=== PATIENT | female | born 1975 | race Caucasian/White ===

== ENCOUNTER → 2018-10-17 | Outpatient (CLI) | payer OTHER, SELFPAY ==
[2018-10-17 10:57] LABS: Mucous, Urine 0 SEEN /hpf (<or=2+); Red Blood Cells-Urine 0 SEEN /hpf (0-5)
[2018-10-17 12:14] LABS: Color, Urine Yellow (Yellow); Glucose, Dipstick Normal (Normal); Ketone-Dipstick Negative (Negative); Leukocyte Esterase-Dipstick 100 /ul (Negative); Nitrite-Dipstick Negative (Negative); Occult Blood-Urine 50 /ul (Negative); Protein-Dipstick Negative (Negative); Urine Bilirubin Dipstick Negative (Negative); Urine Clarity Clear (Clear); Urine Urobilinogen Normal (Normal); Urine pH 6.5 (5.0 - 8.0)
[2018-10-17 12:30] LABS: Bacteria 1+ /hpf (None Seen); Squamous Epithelial Cells - UA 0-5 SEEN /hpf (5-10); White Blood Cells 5-10 SEEN /hpf (0-5)
[2018-10-17 12:34] LABS: Absolute Lymphocyte Count 1.82 X10^3/ul (0.83-4.51); Absolute Neutrophil Count 5.9 X10^3/uL (2.0-7.7); Basophil# 0.05 X10^3/uL; Basophil% 0.6 % (0-1); Eosinophil# 0.22 X10^3/uL; Eosinophils% 2.6 % (0-5); Hematocrit 39.8 % (37-47); Hemoglobin 12.2 g/dl (12.0-15.0); Lymphocyte # 1.82 X10^3/ul (4.0); Lymphocyte % 21.1 % (19-41); Mean Corp Hgb Conc 30.7 g/gl (32-36); Mean Corpuscular Hgb 24.5 pg (27.0-32.0); Mean Corpuscular Volume 79.9 fL (81-99); Mean Platelet Vol. 9.8 fl (6.2-12.0); Monocyte# 0.61 X10^3/uL; Monocyte% 7.1 % (0-10); Neutrophil % 68.5 % (47-70); Platelet Count 333 K/mm3 (150-450); RBC Distribution Width CV 16.7 % (11.6-14.6); Red Blood Count 4.98 M/mm3 (4.2-5.4); White Blood Count 8.6 K/mm3 (4.4-11.0)
[2018-10-17 12:47] LABS: POSITIVE COUNT NO; POSITIVE DIFFERENTIAL NO; POSITIVE MORPHOLOGY NO; Vitamin D,25 Hydroxy 18.6 ng/mL (29.95-100.01)
[2018-10-17 12:51] LABS: AST(SGOT) 14 U/L (15-37); Alanine Aminotransfer ALT/SGPT 24 U/L (13-56); Albumin, Serum 3.4 g/dL (3.2-5.0); Alkaline Phosphatase 63 U/L (45-117); Anion Gap 10 (5-15); BUN 13 mg/dL (7-18); BUN/Creat Ratio 13.8 RATIO (10-20); Calcium,Total 8.7 mg/dL (8.5-10.1); Chloride 112 mmol/L (98-107); Creatinine, Serum 0.94 mg/dL (0.55-1.02); EST Glomerular Filtration Rate 69 mL/min (>60); Est Glom Filt Rate - Afr Amer 84 mL/min (>60); Ferritin 7 ng/mL (8-252); Globulin 3.4 g/dL (2.2-4.2); Glucose 91 mg/dL (74-106); Iron 58 ug/dL (50-170); Iron Binding Capacity,Total 425 ug/dL (250-450); Potassium 4.1 mmol/L (3.5-5.1); Protein, Total 6.8 g/dL (6.4-8.2); Sodium Level 145 mmol/L (136-145); Thyroid Stim Hormone (TSH) 0.95 uIU/mL (0.358-3.74)
[2018-10-18 16:28] LABS: ANTINUCLEAR ANTIBODIES DIRECT Negative (Negative)
== END | disposition home or self-care (01) ==
LOC: MFPLAB 10:50
PROVIDERS: Visit Provider Family Medicine
DX: E55.9 Vitamin D deficiency, unspecified (principal); F31.9 Bipolar disorder, unspecified; Z86.2 Personal history of diseases of the blood and blood-forming organs and certain disorders involving the immune mechanism
CPT/HCPCS: 36415; 80053; 80178; 81001; 82306; 82728; 83540; 83550; 84443; 85025; 86038

== ENCOUNTER → 2018-11-29 | Outpatient (CLI) | payer OTHER, SELFPAY ==
--- NOTE | 2018-11-29 06:47 | MRI_ITS ---
STUDY: MRI BRAIN WITH AND WITHOUT CONTRAST (ATTENTION PITUITARY GLAND) REASON FOR EXAM: Female, 43 years old. Pituitary stalk lesion. TECHNIQUE: Standardized multiplanar fat and water weighted pulse sequences were obtained. 22 IV Dotarem was administered for the contrast portion of the examination. COMPARISON: 06/01/2016. FINDINGS: The pituitary gland is normal in size, configuration, signal intensity and degree of contrast enhancement. The pituitary stalk near the hypothalamus is slightly prominent but this is unchanged and stable since 06/01/2016. Normal suprasellar cistern. Normal optic chiasm and hypothalamus. Normal size of the ventricles and extra-axial spaces for the patient's age. Normal white matter tracts of the supratentorial brain. Normal bilateral basal ganglia. Normal thalami. Normal flow voids within the major intracranial circulation suggesting patency by spin echo criteria. Normal venous enhancement. There is no enhancing intra-axial or extra-axial abnormality. There is no extra-axial fluid accumulation. Normal tectal plate and pineal gland. Normal midbrain, vanita and medulla. Normal cerebellum. Normal basal cisterns. Normal bilateral temporal bones. Normal bilateral internal auditory canals. No demonstrated orbital abnormality, within the constraints of a routine brain study. Normal visualized paranasal sinuses. Normal calvarium and skull base. Normal visualized upper cervical spine. Normal visualized soft tissue structures. MRI/Brain W/WO Contrast IMPRESSION: 1. Slightly prominent pituitary stalk near the hypothalamus without obvious mass effect. This measures approximately 3.7 x 3.4 x 2 mm. This remains stable and unchanged since 06/01/2016. There is no displacement of the pituitary stalk and the pituitary gland remains normal. 2. No interval changes when compared to 06/01/2016. Electronically Signed: Reddy Caal MD at 14:28 EDT , Service support ,
== END | disposition home or self-care (01) ==
PROVIDERS: Family Provider Family Medicine; PCP Family Medicine; Referring Provider Family Medicine; Visit Provider Family Medicine
DX: D49.6 Neoplasm of unspecified behavior of brain (principal)
CPT/HCPCS: 70553; A9575

== ENCOUNTER → 2019-01-19 | Outpatient (CLI) | payer OTHER, SELFPAY ==
[2019-01-19 10:02] LABS: Absolute Lymphocyte Count 1.82 X10^3/uL (0.83-4.51); Absolute Neutrophil Count 6.2 X10^3/uL (2.0-7.7); Basophil# 0.06 X10^3/uL; Basophil% 0.7 % (0-1); Eosinophil# 0.18 X10^3/uL; Eosinophils% 2.1 % (0-5); Hematocrit 42.9 % (37-47); Hemoglobin 13.2 g/dL (12.0-15.0); Lymphocyte # 1.82 X10^3/ul (4.0); Lymphocyte % 20.8 % (19-41); Mean Corp Hgb Conc 30.8 g/dL (32-36); Mean Corpuscular Hgb 27.4 pg (27.0-32.0); Mean Platelet Vol. 9.3 fl (6.2-12.0); Monocyte# 0.48 X10^3/uL; Monocyte% 5.5 % (0-10); NRBC Flagged by Analyzer 0 % (0-5); Neutrophil # 6.17 X10^3/uL (2.7-7.7); Neutrophil % 70.4 % (47-70); Platelet Count 313 K/mm3 (150-450); RBC Distribution Width CV 13.2 % (11.6-14.6); RBC Distribution Width SD 43.4 fl (35.1-43.9); Red Blood Count 4.82 M/mm3 (4.2-5.4); White Blood Count 8.8 K/mm3 (4.4-11.0)
[2019-01-19 10:32] LABS: Vitamin D,25 Hydroxy 29.9 ng/mL (29.95-100.01)
[2019-01-19 10:33] LABS: AST(SGOT) 23 U/L (15-37); Alanine Aminotransfer ALT/SGPT 32 U/L (13-56); Albumin, Serum 3.5 g/dL (3.2-5.0); Alkaline Phosphatase 70 U/L (45-117); Anion Gap 9 (5-15); BUN 13 mg/dL (7-18); Calcium,Total 8.8 mg/dL (8.5-10.1); Chloride 111 mmol/L (98-107); EST Glomerular Filtration Rate 64 mL/min (>60); Est Glom Filt Rate - Afr Amer 78 mL/min (>60); Ferritin 18 ng/mL (8-252); Globulin 3.5 g/dL (2.2-4.2); Glucose 90 mg/dL (74-106); Iron 30 ug/dL (50-170); Iron Binding Capacity,Total 361 ug/dL (250-450); Potassium 4.2 mmol/L (3.5-5.1); Sodium Level 143 mmol/L (136-145)
== END | disposition home or self-care (01) ==
LOC: MFPLAB 09:21
PROVIDERS: Family Provider Family Medicine; PCP Family Medicine; Referring Provider Family Medicine; Visit Provider Family Medicine
DX: R79.0 Abnormal level of blood mineral (principal); E55.9 Vitamin D deficiency, unspecified; M32.9 Systemic lupus erythematosus, unspecified
CPT/HCPCS: 36415; 80053; 82306; 82728; 83540; 83550; 85025

== ENCOUNTER 2019-04-03 09:46 | Emergency (ER) | payer OTHER, SELFPAY ==
[2019-04-03 09:48] VITALS: BP 161/96; PULSE 84; RESP 16; TEMP 36.6; O2SAT 100; BMI 37.5
--- NOTE | 2019-04-03 10:06 | ED.VIS.GEN ---
History of Present Illness Chief Complaint: Vag Bleeding Informant: Patient Onset: Yesterday Context: Gradual Onset Current Severity: Severe Maximum Severity: Severe Narrative: Patient presents with heavy vaginal bleeding. She is had a problem with this and is actually scheduled to undergo a uterine biopsy later this week. 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 Patient states she started her. 2 nights ago. Yesterday she went through 22 overnight pads and had some lower abdominal cramping and low back cramping. - Past Medical History (1) Lupus Status: Chronic (2) Activated protein C resistance Status: Chronic Past Medical History - Allergies and Home Meds Allergies/Adverse Reactions: Allergies Iodinated Contrast Media [CONTRASTS] Allergy (Verified 04/03/19 09:47) Rash Primary Care Physician: Ben Ivan MD [Primary Care Provider] - Doctors: Dr. Lupe Louis Prior records reviewed: Yes Review of Systems General: Denies: Chills, Fever Eyes: Denies: Visual changes - bilaterally ENT: Denies: Bilateral ear pain Cardiovascular: Denies: Chest pain Respiratory: Denies: Dyspnea Gastrointestinal: Reports: Abdominal pain. Denies: Nausea, Vomiting, Diarrhea Musculoskeletal: Reports: Back pain Skin: Denies: Rash Neurological: Denies: Headache Allergy: Denies: Uticaria Physical Exam Vital Signs/Narrative: Vital Signs Temp Pulse Resp BP Pulse Ox 04/03/19 09:48 97.9 F 84 16 161/96 H 100 Inital Vital Signs reviewed: Yes General: Well nourished, Well developed Head: Normocephalic ENT: Moist mucous membranes Neck: Supple Cardiovascular: Regular rate, Regular rhythm Respiratory: No distress, CTA bilaterally Abdomen: Soft, Tender - Mild superpubic tenderness., Hypoactive bowel sounds. Negative for: Guarding, Rebound tenderness Back: Negative for: CVA tenderness Skin: Normal color Neurological: Alert, Oriented x3 Psychological: Normal affect Diagnostic/Tx/Re-eval Laboratory Results 04/03/19 04/03/19 04/03/19 10:15 10:15 10:15 WBC 8.8 RBC 4.74 Hgb 13.3 Hct 43.2 MCV 91.1 MCH 28.1 MCHC 30.8 L RDW Std Deviation 47.6 H RDW Coeff of Codie 14.2 Plt Count 294 MPV 9.0 Immature Gran % (Auto) 0.300 Neut % (Auto) 68.2 Lymph % (Auto) 23.2 [place] % (Auto) 5.7 Eos % (Auto) 1.9 Baso % (Auto) 0.7 Absolute Neuts (auto) 6.0 Absolute Lymphs (auto) 2.04 Nucleated RBC % 0 PT 12.3 INR 0.9 APTT 24.4 Sodium 143 Potassium 3.9 Chloride 112 H Carbon Dioxide 27.0 Anion Gap 4 L BUN 7 Creatinine 0.78 Estim Creat Clear Calc 91.37 Est GFR (MDRD) Af Amer 104 Est GFR (MDRD) Non-Af 86 BUN/Creatinine Ratio 9.0 L Glucose 98 Calcium 8.5 HCG, Quant 04/03/19 10:15 WBC RBC Hgb Hct MCV MCH MCHC RDW Std Deviation RDW Coeff of Codie Plt Count MPV Immature Gran % (Auto) Neut % (Auto) Lymph % (Auto) [place] % (Auto) Eos % (Auto) Baso % (Auto) Absolute Neuts (auto) Absolute Lymphs (auto) Nucleated RBC % PT INR APTT Sodium Potassium Chloride Carbon Dioxide Anion Gap BUN Creatinine Estim Creat Clear Calc Est GFR (MDRD) Af Amer Est GFR (MDRD) Non-Af BUN/Creatinine Ratio Glucose Calcium HCG, Quant < 1 - Medical Decision Making She was given IV fluids. Vital signs remained stable here. I spoke with Dr. Santiago, on-call for Dr. Lupe Louis. He would like the patient to be seen in the office tomorrow. Dr. Lupe Louis is not available today. Patient is to call the office this afternoon to be seen tomorrow. ED Disposition - Plan for ED Patient: Disposition: Home or Assisted Living Diagnosis: Menorrhagia Instructions: Menorrhagia Referrals: Christa Marcos MD [STAFF PHYSICIAN] - 1 Day
[2019-04-03] MEDS: 0.9% Normal Saline 1,000 ML 1000 ML IV (10:22)
[2019-04-03 10:23] VITALS: BP 130/90
[2019-04-03 10:31] LABS: Absolute Lymphocyte Count 2.04 X10^3/uL (0.83-4.51); Basophil# 0.06 X10^3/uL; Basophil% 0.7 % (0-1); Eosinophil# 0.17 X10^3/uL; Eosinophils% 1.9 % (0-5); Hematocrit 43.2 % (37-47); Hemoglobin 13.3 g/dL (12.0-15.0); Lymphocyte # 2.04 X10^3/ul (4.0); Lymphocyte % 23.2 % (19-41); Mean Corp Hgb Conc 30.8 g/dL (32-36); Mean Corpuscular Hgb 28.1 pg (27.0-32.0); Mean Corpuscular Volume 91.1 fL (81-99); Monocyte% 5.7 % (0-10); NRBC Flagged by Analyzer 0 % (0-5); Neutrophil # 5.99 X10^3/uL (2.7-7.7); Neutrophil % 68.2 % (47-70); Platelet Count 294 K/mm3 (150-450); RBC Distribution Width CV 14.2 % (11.6-14.6); RBC Distribution Width SD 47.6 fl (35.1-43.9); Red Blood Count 4.74 M/mm3 (4.2-5.4); White Blood Count 8.8 K/mm3 (4.4-11.0)
[2019-04-03 10:36] LABS: International Normalized Ratio 0.9; Prothrombin Time (Protime)PT. 12.3 SECONDS (11.7-14.9)
[2019-04-03 10:37] LABS: Partial Thromboplast Time 24.4 Seconds (24.1-36.2)
[2019-04-03 10:49] LABS: Anion Gap 4 (5-15); BUN 7 mg/dL (7-18); Calcium,Total 8.5 mg/dL (8.5-10.1); Chloride 112 mmol/L (98-107); Creatinine, Serum 0.78 mg/dL (0.55-1.02); EST Glomerular Filtration Rate 86 mL/min (>60); Est Glom Filt Rate - Afr Amer 104 mL/min (>60); Estimated Creatinine Clearance 91.37 ml/min; Glucose 98 mg/dL (74-106); Potassium 3.9 mmol/L (3.5-5.1); Sodium Level 143 mmol/L (136-145)
[2019-04-03 10:53] LABS: hCG Titer Quant., Serum < 1 mIU/mL (1-3)
[2019-04-03 12:23] VITALS: BP 124/81; PULSE 78; RESP 16; O2SAT 97
== END 2019-04-03 12:23 | disposition home or self-care (01) ==
PROVIDERS: Emergency Provider Emergency Medicine; Family Provider Family Medicine; PCP Family Medicine
DX: N92.0 Excessive and frequent menstruation with regular cycle (principal); D68.51 Activated protein C resistance
CPT/HCPCS: 80048; 84702; 85025; 85610; 85730; 96360; 99283; J7030

== ENCOUNTER → 2019-04-28 08:58 | Outpatient (CLI) | payer OTHER, SELFPAY ==
[2019-04-03 09:48] VITALS: BMI 37.5
[2019-04-28 10:17] LABS: Absolute Lymphocyte Count 1.81 X10^3/uL (0.83-4.51); Absolute Neutrophil Count 6.9 X10^3/uL (2.0-7.7); Basophil# 0.07 X10^3/uL; Basophil% 0.7 % (0-1); Eosinophil# 0.16 X10^3/uL; Eosinophils% 1.7 % (0-5); Hematocrit 44.2 % (37-47); Hemoglobin 13.6 g/dL (12.0-15.0); Lymphocyte # 1.81 X10^3/ul (4.0); Lymphocyte % 19.2 % (19-41); Mean Corp Hgb Conc 30.8 g/dL (32-36); Mean Corpuscular Hgb 27.7 pg (27.0-32.0); Mean Platelet Vol. 9.8 fl (6.2-12.0); Monocyte# 0.48 X10^3/uL; Monocyte% 5.1 % (0-10); NRBC Flagged by Analyzer 0 % (0-5); Neutrophil # 6.88 X10^3/uL (2.7-7.7); Platelet Count 335 K/mm3 (150-450); RBC Distribution Width CV 13.8 % (11.6-14.6); RBC Distribution Width SD 45.6 fl (35.1-43.9); Red Blood Count 4.91 M/mm3 (4.2-5.4); White Blood Count 9.4 K/mm3 (4.4-11.0)
[2019-04-28 10:48] LABS: Vitamin D,25 Hydroxy 26.4 ng/mL (29.95-100.01)
[2019-04-28 10:54] LABS: Anion Gap 4 (5-15); BUN 10 mg/dL (7-18); BUN/Creat Ratio 11.4 RATIO (10-20); Calcium,Total 8.5 mg/dL (8.5-10.1); Chloride 113 mmol/L (98-107); Creatinine, Serum 0.88 mg/dL (0.55-1.02); EST Glomerular Filtration Rate 75 mL/min (>60); Est Glom Filt Rate - Afr Amer 91 mL/min (>60); Ferritin 15 ng/mL (8-252); Glucose 98 mg/dL (74-106); Iron 33 ug/dL (50-170); Iron Binding Capacity,Total 428 ug/dL (250-450); Potassium 4.5 mmol/L (3.5-5.1); Sodium Level 142 mmol/L (136-145)
== END ==
PROVIDERS: Family Provider Family Medicine; PCP Family Medicine; Referring Provider Family Medicine; Visit Provider Family Medicine
DX: E55.9 Vitamin D deficiency, unspecified (principal); R79.0 Abnormal level of blood mineral; F31.9 Bipolar disorder, unspecified
CPT/HCPCS: 36415; 80048; 82306; 82728; 83540; 83550; 85025

== ENCOUNTER → 2019-09-11 | Outpatient (CLI) | payer OTHER, SELFPAY ==
[2019-09-11 10:04] LABS: Erythrocyte Sedimentation Rate 10 mm/hr (0-20)
[2019-09-11 10:23] LABS: Absolute Lymphocyte Count 1.58 X10^3/uL (0.83-4.51); Absolute Neutrophil Count 6.3 X10^3/uL (2.0-7.7); Basophil# 0.05 X10^3/uL; Basophil% 0.6 % (0-1); Eosinophil# 0.18 X10^3/uL; Eosinophils% 2.1 % (0-5); Hematocrit 43.4 % (37-47); Hemoglobin 13.5 g/dL (12.0-15.0); Lymphocyte # 1.58 X10^3/ul (4.0); Lymphocyte % 18.3 % (19-41); Mean Corp Hgb Conc 31.1 g/dL (32-36); Mean Corpuscular Hgb 27.4 pg (27.0-32.0); Mean Corpuscular Volume 88.2 fL (81-99); Mean Platelet Vol. 9.6 fl (6.2-12.0); Monocyte# 0.48 X10^3/uL; Monocyte% 5.5 % (0-10); NRBC Flagged by Analyzer 0 % (0-5); Neutrophil # 6.33 X10^3/uL (2.7-7.7); Neutrophil % 73.2 % (47-70); Platelet Count 364 K/mm3 (150-450); RBC Distribution Width CV 13.7 % (11.6-14.6); RBC Distribution Width SD 43.9 fl (35.1-43.9); Red Blood Count 4.92 M/mm3 (4.2-5.4); White Blood Count 8.7 K/mm3 (4.4-11.0)
[2019-09-11 10:24] LABS: AST(SGOT) 12 U/L (15-37); Alanine Aminotransfer ALT/SGPT 22 U/L (13-56); Albumin, Serum 3.4 g/dL (3.2-5.0); Alkaline Phosphatase 68 U/L (45-117); Anion Gap 5 (5-15); BUN 10 mg/dL (7-18); BUN/Creat Ratio 11.5 RATIO (10-20); CRP 5.64 mg/L (0.0-3.0); Calcium,Total 8.5 mg/dL (8.5-10.1); Chloride 111 mmol/L (98-107); Creatinine, Serum 0.87 mg/dL (0.55-1.02); EST Glomerular Filtration Rate 76 mL/min (>60); Est Glom Filt Rate - Afr Amer 92 mL/min (>60); Globulin 3.3 g/dL (2.2-4.2); Glucose 129 mg/dL (74-106); Potassium 3.8 mmol/L (3.5-5.1); Protein, Total 6.7 g/dL (6.4-8.2); Rheumatoid Factor < 10.0 IU/mL (<15); Sodium Level 139 mmol/L (136-145)
[2019-09-11 11:01] LABS: Hepatitis B Surface Antibody Non-Reactive; Hepatitis B Surface Antigen Non-Reactive (Nonreactive); Hepatitis C Antibody Non-Reactive (Nonreactive)
[2019-09-12 23:52] LABS: ANTINUCLEAR ANTIBODIES DIRECT Negative (Negative)
[2019-09-13 03:58] LABS: CCP IgG Antibodies 7 units (0-19); Hepatitis B Core AB IgM Negative (Negative)
== END | disposition home or self-care (01) ==
LOC: MTLAB 07:21
PROVIDERS: PCP Family Medicine; Referring Provider Internal Medicine Rheumatology; Visit Provider Internal Medicine Rheumatology
DX: M06.4 Inflammatory polyarthropathy (principal); M79.7 Fibromyalgia; F31.9 Bipolar disorder, unspecified; R51 Headache; Z85.820 Personal history of malignant melanoma of skin; Z86.711 Personal history of pulmonary embolism
CPT/HCPCS: 36415; 80053; 85025; 85652; 86038; 86140; 86200; 86431; 86705; 86706; 86803; 87340

== ENCOUNTER → 2019-10-02 | Outpatient (CLI) | payer OTHER, SELFPAY ==
[2019-10-02 10:17] LABS: Vitamin D,25 Hydroxy 38.2 ng/mL
[2019-10-02 10:24] LABS: Ferritin 46 ng/mL (8-252); Iron 127 ug/dL (50-170); Iron Binding Capacity,Total 331 ug/dL (250-450)
== END | disposition home or self-care (01) ==
PROVIDERS: PCP Family Medicine; Referring Provider Family Medicine; Visit Provider Family Medicine
DX: E55.9 Vitamin D deficiency, unspecified (principal); R79.0 Abnormal level of blood mineral; F31.9 Bipolar disorder, unspecified
CPT/HCPCS: 36415; 80178; 82306; 82728; 83540; 83550

== ENCOUNTER → 2019-11-07 | Outpatient (CLI) | payer OTHER, SELFPAY ==
[2019-11-07 15:26] LABS: Absolute Lymphocyte Count 1.59 X10^3/uL (0.83-4.51); Absolute Neutrophil Count 6.2 X10^3/uL (2.0-7.7); Basophil# 0.05 X10^3/uL; Basophil% 0.6 % (0-1); Eosinophils% 2.3 % (0-5); Hematocrit 42.4 % (37-47); Hemoglobin 12.8 g/dL (12.0-15.0); Lymphocyte # 1.59 X10^3/ul (4.0); Lymphocyte % 18.6 % (19-41); Mean Corp Hgb Conc 30.2 g/dL (32-36); Mean Corpuscular Volume 95.9 fL (81-99); Mean Platelet Vol. 9.7 fl (6.2-12.0); Monocyte# 0.44 X10^3/uL; Monocyte% 5.2 % (0-10); NRBC Flagged by Analyzer 0 % (0-5); Neutrophil # 6.22 X10^3/uL (2.7-7.7); Neutrophil % 72.9 % (47-70); Platelet Count 331 K/mm3 (150-450); RBC Distribution Width CV 14.7 % (11.6-14.6); RBC Distribution Width SD 50.9 fl (35.1-43.9); Red Blood Count 4.42 M/mm3 (4.2-5.4); White Blood Count 8.5 K/mm3 (4.4-11.0)
[2019-11-07 16:04] LABS: AST(SGOT) 13 U/L (15-37); Alanine Aminotransfer ALT/SGPT 27 U/L (13-56); Albumin, Serum 3.3 g/dL (3.2-5.0); Alkaline Phosphatase 70 U/L (45-117); Anion Gap 6 (5-15); BUN 11 mg/dL (7-18); Calcium,Total 8.7 mg/dL (8.5-10.1); Chloride 109 mmol/L (98-107); Creatinine, Serum 0.92 mg/dL (0.55-1.02); EST Glomerular Filtration Rate 71 mL/min (>60); Est Glom Filt Rate - Afr Amer 86 mL/min (>60); Globulin 3.4 g/dL (2.2-4.2); Glucose 96 mg/dL (74-106); Potassium 3.8 mmol/L (3.5-5.1); Protein, Total 6.7 g/dL (6.4-8.2); Sodium Level 140 mmol/L (136-145)
== END | disposition home or self-care (01) ==
LOC: MFPLAB 12:05
PROVIDERS: PCP Family Medicine; Referring Provider Family Medicine; Visit Provider Internal Medicine Rheumatology
DX: M06.4 Inflammatory polyarthropathy (principal); M79.7 Fibromyalgia; F31.9 Bipolar disorder, unspecified; R51 Headache; Z85.820 Personal history of malignant melanoma of skin; Z86.711 Personal history of pulmonary embolism; Z79.899 Other long term (current) drug therapy
CPT/HCPCS: 36415; 80053; 85025

== ENCOUNTER → 2020-03-25 11:49 | Outpatient (CLI) | payer OTHER, SELFPAY ==
[2020-03-25 15:16] LABS: Absolute Lymphocyte Count 1.41 X10^3/uL (0.83-4.51); Absolute Neutrophil Count 7.6 X10^3/uL (2.0-7.7); Basophil# 0.05 X10^3/uL; Basophil% 0.5 % (0-1); Eosinophil# 0.18 X10^3/uL; Eosinophils% 1.8 % (0-5); Hematocrit 43.6 % (37-47); Hemoglobin 13.1 g/dL (12.0-15.0); Lymphocyte # 1.41 X10^3/ul (4.0); Lymphocyte % 14.4 % (19-41); Mean Corpuscular Hgb 27.9 pg (27.0-32.0); Mean Platelet Vol. 9.6 fl (6.2-12.0); Monocyte# 0.48 X10^3/uL; Monocyte% 4.9 % (0-10); NRBC Flagged by Analyzer 0 % (0-5); Neutrophil # 7.64 X10^3/uL (2.7-7.7); Neutrophil % 77.9 % (47-70); Platelet Count 349 K/mm3 (150-450); RBC Distribution Width CV 14.4 % (11.6-14.6); RBC Distribution Width SD 48.6 fl (35.1-43.9); Red Blood Count 4.69 M/mm3 (4.2-5.4); White Blood Count 9.8 K/mm3 (4.4-11.0)
[2020-03-25 15:31] LABS: AST(SGOT) 14 U/L (15-37); Alanine Aminotransfer ALT/SGPT 31 U/L (13-56); Albumin, Serum 3.5 g/dL (3.2-5.0); Alkaline Phosphatase 77 U/L (45-117); Anion Gap 5 (5-15); BUN 11 mg/dL (7-18); Calcium,Total 9.2 mg/dL (8.5-10.1); Chloride 112 mmol/L (98-107); Creatinine, Serum 0.91 mg/dL (0.55-1.02); EST Glomerular Filtration Rate 71 mL/min (>60); Est Glom Filt Rate - Afr Amer 86 mL/min (>60); Globulin 3.6 g/dL (2.2-4.2); Glucose 100 mg/dL (74-106); Potassium 4.5 mmol/L (3.5-5.1); Protein, Total 7.1 g/dL (6.4-8.2); Sodium Level 141 mmol/L (136-145)
== END ==
PROVIDERS: PCP Family Medicine; Referring Provider Family Medicine; Visit Provider Internal Medicine Rheumatology
DX: M06.4 Inflammatory polyarthropathy (principal); M79.7 Fibromyalgia; F31.9 Bipolar disorder, unspecified; R51.9 Headache, unspecified; Z85.820 Personal history of malignant melanoma of skin; Z86.711 Personal history of pulmonary embolism; Z79.899 Other long term (current) drug therapy
CPT/HCPCS: 36415; 80053; 85025

== ENCOUNTER → 2020-06-12 14:42 | Outpatient (CLI) | payer OTHER, SELFPAY ==
[2020-06-12 18:22] LABS: Absolute Lymphocyte Count 2.74 X10^3/uL (0.83-4.51); Absolute Neutrophil Count 5.9 X10^3/uL (2.0-7.7); Basophil# 0.06 X10^3/uL; Basophil% 0.6 % (0-1); Eosinophil# 0.23 X10^3/uL; Eosinophils% 2.4 % (0-5); Hematocrit 42.5 % (37-47); Hemoglobin 12.7 g/dL (12.0-15.0); Lymphocyte # 2.74 X10^3/ul (4.0); Lymphocyte % 28.7 % (19-41); Mean Corp Hgb Conc 29.9 g/dL (32-36); Mean Corpuscular Hgb 27.6 pg (27.0-32.0); Mean Corpuscular Volume 92.4 fL (81-99); Mean Platelet Vol. 10.3 fl (6.2-12.0); Monocyte% 6.3 % (0-10); NRBC Flagged by Analyzer 0 % (0-5); Neutrophil # 5.88 X10^3/uL (2.7-7.7); Neutrophil % 61.7 % (47-70); Platelet Count 369 K/mm3 (150-450); RBC Distribution Width CV 14.6 % (11.6-14.6); RBC Distribution Width SD 49.2 fl (35.1-43.9); White Blood Count 9.5 K/mm3 (4.4-11.0)
[2020-06-12 18:52] LABS: ALB/GLOB Ratio 1.1 RATIO (0.9-2.4); AST(SGOT) 15 U/L (15-37); Alanine Aminotransfer ALT/SGPT 32 U/L (13-56); Albumin, Serum 3.5 g/dL (3.2-5.0); Alkaline Phosphatase 70 U/L (45-117); Anion Gap 6 (5-15); BUN 11 mg/dL (7-18); BUN/Creat Ratio 12.4 RATIO (10-20); Calcium,Total 9.1 mg/dL (8.5-10.1); Chloride 110 mmol/L (98-107); Creatinine, Serum 0.89 mg/dL (0.55-1.02); EST Glomerular Filtration Rate 73 mL/min (>60); Est Glom Filt Rate - Afr Amer 89 mL/min (>60); Globulin 3.3 g/dL (2.2-4.2); Glucose 93 mg/dL (74-106); Potassium 4.2 mmol/L (3.5-5.1); Protein, Total 6.8 g/dL (6.4-8.2); Sodium Level 141 mmol/L (136-145)
== END ==
PROVIDERS: PCP Family Medicine; Referring Provider Family Medicine; Visit Provider Internal Medicine Rheumatology
DX: M06.4 Inflammatory polyarthropathy (principal); M79.7 Fibromyalgia; F31.9 Bipolar disorder, unspecified; R51.9 Headache, unspecified; Z85.820 Personal history of malignant melanoma of skin; Z86.711 Personal history of pulmonary embolism; Z79.899 Other long term (current) drug therapy
CPT/HCPCS: 36415; 80053; 85025

== ENCOUNTER → 2020-06-13 | Outpatient (CLI) | payer OTHER, SELFPAY ==
[2020-06-13 18:05] LABS: Vitamin B12 391 pg/mL (211-911); Vitamin D,25 Hydroxy 17.7 ng/mL
[2020-06-13 18:16] LABS: Ferritin 33 ng/mL (8-252); Iron 22 ug/dL (50-170); Iron Binding Capacity,Total 363 ug/dL (250-450); T4 Free Direct 1.03 ng/dL (0.76-1.46); Thyroid Stim Hormone (TSH) 1.26 uIU/mL (0.358-3.74)
== END | disposition home or self-care (01) ==
LOC: MFPLAB 16:35
PROVIDERS: PCP Family Medicine; Referring Provider Family Medicine; Visit Provider Family Medicine
DX: E55.9 Vitamin D deficiency, unspecified (principal); R79.0 Abnormal level of blood mineral; R53.83 Other fatigue
CPT/HCPCS: 36415; 82306; 82607; 82728; 83540; 83550; 84439; 84443

== ENCOUNTER → 2020-08-28 16:23 | Outpatient (CLI) | payer OTHER, SELFPAY ==
[2020-08-28 17:59] LABS: Absolute Lymphocyte Count 2.44 X10^3/uL (0.83-4.51); Absolute Neutrophil Count 6.4 X10^3/uL (2.0-7.7); Basophil# 0.06 X10^3/uL; Basophil% 0.6 % (0-1); Eosinophils% 2.1 % (0-5); Hematocrit 40.8 % (37-47); Hemoglobin 12.3 g/dL (12.0-15.0); Lymphocyte # 2.44 X10^3/ul (0.83-4.51); Lymphocyte % 25.2 % (19-41); Mean Corp Hgb Conc 30.1 g/dL (32-36); Mean Corpuscular Hgb 27.6 pg (27.0-32.0); Mean Corpuscular Volume 91.7 fL (81-99); Monocyte# 0.55 X10^3/uL; Monocyte% 5.7 % (0-10); NRBC Flagged by Analyzer 0 % (0-5); Neutrophil # 6.41 X10^3/uL (2.7-7.7); Neutrophil % 66.1 % (47-70); Platelet Count 340 K/mm3 (150-450); RBC Distribution Width CV 14.9 % (11.6-14.6); RBC Distribution Width SD 49.5 fl (35.1-43.9); Red Blood Count 4.45 M/mm3 (4.2-5.4); White Blood Count 9.7 K/mm3 (4.4-11.0)
[2020-08-28 18:33] LABS: ALB/GLOB Ratio 1.1 RATIO (0.9-2.4); AST(SGOT) 12 U/L (15-37); Alanine Aminotransfer ALT/SGPT 28 U/L (13-56); Albumin, Serum 3.4 g/dL (3.2-5.0); Alkaline Phosphatase 78 U/L (45-117); Anion Gap 5 (5-15); BUN 13 mg/dL (7-18); BUN/Creat Ratio 15.3 RATIO (10-20); Calcium,Total 8.8 mg/dL (8.5-10.1); Chloride 109 mmol/L (98-107); Creatinine, Serum 0.85 mg/dL (0.55-1.02); EST Glomerular Filtration Rate 77 mL/min (>60); Est Glom Filt Rate - Afr Amer 93 mL/min (>60); Globulin 3.1 g/dL (2.2-4.2); Glucose 101 mg/dL (74-106); Potassium 3.8 mmol/L (3.5-5.1); Protein, Total 6.5 g/dL (6.4-8.2); Sodium Level 139 mmol/L (136-145)
== END ==
PROVIDERS: PCP Family Medicine; Referring Provider Family Medicine; Visit Provider Internal Medicine Rheumatology
DX: M06.4 Inflammatory polyarthropathy (principal); M79.7 Fibromyalgia; F31.9 Bipolar disorder, unspecified; R51.9 Headache, unspecified; Z85.820 Personal history of malignant melanoma of skin; Z86.711 Personal history of pulmonary embolism; Z79.899 Other long term (current) drug therapy
CPT/HCPCS: 36415; 80053; 85025

== ENCOUNTER → 2020-09-30 17:00 | Outpatient (CLI) | payer OTHER, SELFPAY ==
--- NOTE | 2020-09-30 17:30 | MRI_ITS ---
STUDY: MRI BRAIN WITH AND WITHOUT CONTRAST REASON FOR EXAM: Female, 45 years old. Pituitary tumor, compare to scan from November 2018 TECHNIQUE: Standardized multiplanar fat and water weighted pulse sequences were obtained. IV 23ml Dotarem was administered for the contrast portion of the examination. COMPARISON: 11/29/2018. FINDINGS: Redemonstrated prominence of the pituitary stalk near the hypothalamus measuring approximately 3 x 4 mm, no change from the prior study. Pituitary gland is normal in height measuring 5 mm. No focal lesion within the pituitary gland. Normal suprasellar cistern, optic chiasm and cavernous sinuses. Normal size of the ventricles and extra-axial spaces for the patient''s age. Normal white matter tracts of the supratentorial brain. Normal bilateral basal ganglia. Normal thalami. There is no extra-axial fluid accumulation. Normal flow voids within the major intracranial circulation suggesting patency by spin echo criteria. There is no enhancing intra-axial or extra-axial abnormality. Normal midbrain, vanita and medulla. Normal cerebellum. Normal basal cisterns. Normal bilateral temporal bones. Normal bilateral internal auditory canals. Normal visualized paranasal sinuses. Normal calvarium and skull base. MRI/Brain W/WO Contrast IMPRESSION: 1. No change in slight prominence of the pituitary stalk. The study is otherwise unremarkable. Electronically Signed: Simona Swenson MD at 23:36 EDT Tel , Service support ,
== END ==
PROVIDERS: PCP Family Medicine; Referring Provider Family Medicine; Visit Provider Family Medicine
DX: D49.6 Neoplasm of unspecified behavior of brain (principal)
CPT/HCPCS: 70553; A9575

== ENCOUNTER → 2020-10-21 08:38 | Outpatient (CLI) | payer OTHER, SELFPAY ==
[2020-10-21 10:18] LABS: Absolute Lymphocyte Count 1.27 X10^3/uL (0.83-4.51); Basophil# 0.05 X10^3/uL; Basophil% 0.6 % (0-1); Eosinophil# 0.16 X10^3/uL; Eosinophils% 1.8 % (0-5); Hematocrit 41.1 % (37-47); Hemoglobin 12.7 g/dL (12.0-15.0); Lymphocyte # 1.27 X10^3/ul (0.83-4.51); Lymphocyte % 14.4 % (19-41); Mean Corp Hgb Conc 30.9 g/dL (32-36); Mean Corpuscular Hgb 27.3 pg (27.0-32.0); Mean Corpuscular Volume 88.4 fL (81-99); Mean Platelet Vol. 9.8 fl (6.2-12.0); Monocyte# 0.35 X10^3/uL; NRBC Flagged by Analyzer 0 % (0-5); Neutrophil # 6.99 X10^3/uL (2.7-7.7); Neutrophil % 78.9 % (47-70); Platelet Count 347 K/mm3 (150-450); RBC Distribution Width CV 15.5 % (11.6-14.6); RBC Distribution Width SD 49.9 fl (35.1-43.9); Red Blood Count 4.65 M/mm3 (4.2-5.4); White Blood Count 8.9 K/mm3 (4.4-11.0)
[2020-10-21 10:28] LABS: Vitamin D,25 Hydroxy 21.8 ng/mL
[2020-10-21 10:41] LABS: AST(SGOT) 11 U/L (15-37); Alanine Aminotransfer ALT/SGPT 27 U/L (13-56); Albumin, Serum 3.3 g/dL (3.2-5.0); Alkaline Phosphatase 76 U/L (45-117); Anion Gap 8 (5-15); BUN 10 mg/dL (7-18); Calcium,Total 8.5 mg/dL (8.5-10.1); Chloride 110 mmol/L (98-107); Creatinine, Serum 0.91 mg/dL (0.55-1.02); EST Glomerular Filtration Rate 71 mL/min (>60); Est Glom Filt Rate - Afr Amer 86 mL/min (>60); Ferritin 31 ng/mL (8-252); Globulin 3.3 g/dL (2.2-4.2); Glucose 147 mg/dL (74-106); Iron 99 ug/dL (50-170); Iron Binding Capacity,Total 368 ug/dL (250-450); Potassium 3.8 mmol/L (3.5-5.1); Protein, Total 6.6 g/dL (6.4-8.2); Sodium Level 141 mmol/L (136-145)
[2020-10-23 09:36] LABS: Hemoglobin A1c 5.4 % (3.8-5.6)
[2020-10-24 03:07] LABS: QNTFERON TB Mitogen Value > 10.00 IU/mL (.); QNTFERON TB Nil Value 0 IU/mL (.); QNTFERON TB1+ Ag Value 0 IU/mL (.); QNTFERON TB2+ Ag Value 0 IU/mL (.)
[2020-10-24 08:42] LABS: QNTIFERON TB Positive Criteria Negative (Negative)
== END ==
PROVIDERS: Internal Medicine Rheumatology; PCP Family Medicine; Visit Provider Family Medicine
DX: E55.9 Vitamin D deficiency, unspecified (principal); M06.4 Inflammatory polyarthropathy; M79.7 Fibromyalgia; F31.9 Bipolar disorder, unspecified; R51.9 Headache, unspecified; R79.0 Abnormal level of blood mineral; R73.09 Other abnormal glucose; Z85.820 Personal history of malignant melanoma of skin; Z86.711 Personal history of pulmonary embolism; Z79.899 Other long term (current) drug therapy
CPT/HCPCS: 36415; 80053; 80178; 82306; 82728; 83036; 83540; 83550; 85025; 86480

== ENCOUNTER → 2020-10-23 | Outpatient (CLI) | payer OTHER, SELFPAY ==
--- NOTE | 2020-10-23 | EMB_PTH ---
PATIENT: CHI FERNANDEZ LOC: [facility] U#:[id number] AGE/SX: 45/F ROOM: RE10/23/[address]: Dr. Christa Louis MD : 1975 BED: DIS: 10/23/2020 SPEC #: [id number]: 10/23/20 16:46 STATUS: HARDIK REQ #: [id number] DAJUAN: 10/23/20 00:[address]: Christa Leal DEPT: SURGICAL PATHOLOGY RECD BY: Philip Reardon ENTERED: 10/24/20 08:19 SP TYPE: ENDOM BX/C OTHR DR: Dr. Ben Ivan MD Tissues: Endometrium, NOS Procedures: Surgery Specimen Level IV HEADER OPERATION: Endometrial biopsy PRE-OP DIAGNOSIS: Menorrhagia TISSUE SUBMITTED: Endometrial biopsy MICROSCOPIC DIAGNOSIS Endometrium, biopsy: Secretory endometrium with glandular and stromal breakdown. AM:eben 10/25/2020 MICROSCOPIC DESCRIPTION Slides are reviewed. GROSS DESCRIPTION Received in fixative is one container labeled with the patient's name and designated EM biopsy. The specimen consists of multiple fragments of hemorrhagic soft tissue that in aggregate measure 2.5 x 1.5 x 0.2 cm. The specimen is totally submitted in one cassette. / SJ:eben 10/24/20 TC:5 CPT: 77789
== END | disposition home or self-care (01) ==
LOC: LABSPEC 16:00
PROVIDERS: PCP Family Medicine; Visit Provider Obstetrics & Gynecology
DX: N92.0 Excessive and frequent menstruation with regular cycle (principal)
CPT/HCPCS: 88305

== ENCOUNTER → 2020-10-24 10:08 | Outpatient (CLI) | payer OTHER, SELFPAY ==
--- NOTE | 2020-10-24 10:11 | RAD_ITS ---
EXAM: XR CHEST, 2 VIEWS : 1975 CLINICAL INDICATION: INFLAMMATORY POLYARTHROPATHY TECHNIQUE: Frontal and lateral views of the chest. This report was created using [employer] report generation technology. COMPARISON: None. FINDINGS: LUNGS AND PLEURAL SPACES: Unremarkable. No consolidation or edema. No pneumothorax. No effusion. HEART: Unremarkable. Cardiac silhouette not enlarged. MEDIASTINUM: Central airways and mediastinal contour are unremarkable. BONES/JOINTS: Unremarkable. SOFT TISSUES: Unremarkable. RAD/Chest PA and Lateral IMPRESSION: No radiographic evidence of acute cardiopulmonary disease. at 0727 Reported and signed by: Julian Ybarra MD Electronically Signed: Julian Ybarra MD at 7:27 EDT Tel , Service support ,
== END ==
PROVIDERS: PCP Family Medicine; Referring Provider Internal Medicine Rheumatology; Visit Provider Internal Medicine Rheumatology
DX: M06.4 Inflammatory polyarthropathy (principal); M79.7 Fibromyalgia; F31.9 Bipolar disorder, unspecified; Z79.899 Other long term (current) drug therapy; R51.9 Headache, unspecified; Z85.820 Personal history of malignant melanoma of skin; Z86.711 Personal history of pulmonary embolism
CPT/HCPCS: 71046

== ENCOUNTER → 2020-10-29 08:23 | Outpatient (CLI) | payer OTHER, SELFPAY ==
[2020-10-29 10:22] LABS: Absolute Lymphocyte Count 1.69 X10^3/uL (0.83-4.51); Absolute Neutrophil Count 6.6 X10^3/uL (2.0-7.7); Basophil# 0.04 X10^3/uL; Basophil% 0.4 % (0-1); Eosinophil# 0.17 X10^3/uL; Eosinophils% 1.9 % (0-5); Hematocrit 42.2 % (37-47); Hemoglobin 12.6 g/dL (12.0-15.0); Lymphocyte # 1.69 X10^3/ul (0.83-4.51); Lymphocyte % 18.8 % (19-41); Mean Corp Hgb Conc 29.9 g/dL (32-36); Mean Corpuscular Hgb 26.8 pg (27.0-32.0); Mean Corpuscular Volume 89.6 fL (81-99); Mean Platelet Vol. 9.7 fl (6.2-12.0); Monocyte# 0.43 X10^3/uL; Monocyte% 4.8 % (0-10); NRBC Flagged by Analyzer 0 % (0-5); Neutrophil # 6.61 X10^3/uL (2.7-7.7); Neutrophil % 73.8 % (47-70); Platelet Count 395 K/mm3 (150-450); RBC Distribution Width CV 15.3 % (11.6-14.6); Red Blood Count 4.71 M/mm3 (4.2-5.4)
[2020-10-29 10:42] LABS: AST(SGOT) 18 U/L (15-37); Alanine Aminotransfer ALT/SGPT 33 U/L (13-56); Albumin, Serum 3.4 g/dL (3.2-5.0); Alkaline Phosphatase 73 U/L (45-117); Anion Gap 6 (5-15); BUN 11 mg/dL (7-18); Calcium,Total 9.1 mg/dL (8.5-10.1); Chloride 111 mmol/L (98-107); Creatinine, Serum 0.92 mg/dL (0.55-1.02); EST Glomerular Filtration Rate 70 mL/min (>60); Est Glom Filt Rate - Afr Amer 85 mL/min (>60); Globulin 3.3 g/dL (2.2-4.2); Glucose 97 mg/dL (74-106); Potassium 4.7 mmol/L (3.5-5.1); Protein, Total 6.7 g/dL (6.4-8.2); Sodium Level 140 mmol/L (136-145)
== END ==
PROVIDERS: PCP Family Medicine; Referring Provider Family Medicine; Visit Provider Internal Medicine Rheumatology
DX: M06.4 Inflammatory polyarthropathy (principal); M79.7 Fibromyalgia; F31.9 Bipolar disorder, unspecified; R51.9 Headache, unspecified; Z85.820 Personal history of malignant melanoma of skin; Z86.711 Personal history of pulmonary embolism; Z79.899 Other long term (current) drug therapy
CPT/HCPCS: 36415; 80053; 85025

== ENCOUNTER → 2020-11-15 10:32 | Outpatient (CLI) | payer OTHER, SELFPAY ==
[2020-11-18 20:07] LABS: Red Blood Cell Count Test/G6PD 4.51 x10E6/uL (3.77-5.28)
[2020-11-19 07:46] LABS: G6PD Quant Test 347 (127-427)
== END ==
PROVIDERS: PCP Family Medicine; Visit Provider Internal Medicine Rheumatology
DX: M06.4 Inflammatory polyarthropathy (principal); M79.7 Fibromyalgia; F31.9 Bipolar disorder, unspecified; R51.9 Headache, unspecified; Z85.820 Personal history of malignant melanoma of skin; Z86.711 Personal history of pulmonary embolism; Z79.899 Other long term (current) drug therapy
CPT/HCPCS: 36415; 82955

== ENCOUNTER → 2020-12-26 08:24 | Outpatient (CLI) | payer OTHER, SELFPAY ==
[2020-12-26 10:12] LABS: Absolute Lymphocyte Count 1.59 X10^3/uL (0.83-4.51); Absolute Neutrophil Count 7.8 X10^3/uL (2.0-7.7); Basophil# 0.07 X10^3/uL; Basophil% 0.7 % (0-1); Eosinophil# 0.19 X10^3/uL; Eosinophils% 1.9 % (0-5); Hematocrit 39.8 % (37-47); Hemoglobin 12.2 g/dL (12.0-15.0); Lymphocyte # 1.59 X10^3/ul (0.83-4.51); Lymphocyte % 15.6 % (19-41); Mean Corp Hgb Conc 30.7 g/dL (32-36); Mean Corpuscular Volume 91.3 fL (81-99); Mean Platelet Vol. 9.4 fl (6.2-12.0); Monocyte# 0.48 X10^3/uL; Monocyte% 4.7 % (0-10); NRBC Flagged by Analyzer 0 % (0-5); Neutrophil # 7.83 X10^3/uL (2.7-7.7); Neutrophil % 76.5 % (47-70); Platelet Count 365 K/mm3 (150-450); RBC Distribution Width CV 15.8 % (11.6-14.6); RBC Distribution Width SD 51.8 fl (35.1-43.9); Red Blood Count 4.36 M/mm3 (4.2-5.4); White Blood Count 10.2 K/mm3 (4.4-11.0)
[2020-12-26 10:31] LABS: AST(SGOT) 13 U/L (15-37); Alanine Aminotransfer ALT/SGPT 27 U/L (13-56); Albumin, Serum 3.3 g/dL (3.2-5.0); Alkaline Phosphatase 70 U/L (45-117); Anion Gap 6 (5-15); BUN 9 mg/dL (7-18); Chloride 109 mmol/L (98-107); EST Glomerular Filtration Rate 72 mL/min (>60); Est Glom Filt Rate - Afr Amer 87 mL/min (>60); Globulin 3.3 g/dL (2.2-4.2); Glucose 123 mg/dL (74-106); Potassium 4.3 mmol/L (3.5-5.1); Protein, Total 6.6 g/dL (6.4-8.2); Sodium Level 140 mmol/L (136-145)
== END ==
PROVIDERS: PCP Family Medicine; Visit Provider Internal Medicine Rheumatology
DX: M06.4 Inflammatory polyarthropathy (principal); M79.7 Fibromyalgia; F31.9 Bipolar disorder, unspecified; R51.9 Headache, unspecified; Z85.820 Personal history of malignant melanoma of skin; Z86.711 Personal history of pulmonary embolism; Z79.899 Other long term (current) drug therapy
CPT/HCPCS: 36415; 80053; 85025

== ENCOUNTER 2021-01-02 08:20 | Day surgery (SDC) | payer OTHER, SELFPAY ==
[2021-01-02] VITALS (8 sets, daily range): BP systolic 113–125; BP diastolic 63–85; PULSE 56–78; RESP 16–17; TEMP 36.1–36.6; O2SAT 98–100; BMI 40.3
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
[2021-01-02 09:18] LABS: Internal QC Validated? YES +Cl - CLEAR BKGD; Pregnancy, Urine Negative Negative
[2021-01-02] MEDS: Lactated Ringers 1,000 ML 100 ML IV ×2 (09:24→11:38)
--- NOTE | 2021-01-02 10:00 | EMB_PTH ---
PATIENT: CHI FERNANDEZ [place]: [facility] [place][id number] AGE/SX: 45/F ROOM: RE01/02/[address]: Dr. Christa Louis MD : 1975 BED: DIS: 01/02/2021 SPEC #: [id number] RECD: 01/02/21 11:39 STATUS: HARDIK REQ #: [id number] DAJUAN: 01/02/21 10:[address]: Christa Leal DEPT: SURGICAL PATHOLOGY RECD BY: Camelia Heath ENTERED: 01/02/21 12:47 SP TYPE: ENDOM BX/C OTHR DR: Dr. Ben Ivan MD Tissues: Endometrium, NOS Procedures: Surgery Specimen Level IV HEADER OPERATION: Hysteroscopy, D & C Zakiya, endometrial ablation PRE-OP DIAGNOSIS: Prolonged and heavy menses TISSUE SUBMITTED: Endometrial curettings MICROSCOPIC DIAGNOSIS Endometrial curettings: Secretory endometrium. SJ:eben 01/03/2021 COMMENT Please make reference to previous specimen ([id number]) endometrial biopsy with diagnosis of ?secretory endometrium with glandular and stromal breakdown.? MICROSCOPIC DESCRIPTION Slides are reviewed. GROSS DESCRIPTION Received in fixative is one container labeled with the patient's name and designated endometrial curettings. The specimen consists of multiple irregular fragments of mcmillan-pink soft tissue that in aggregate measure 1.5 x 1 x 0.1 cm. The specimen is totally submitted in one cassette. / NELY:eben 01/02/21 TC:4 CPT: 37483
[2021-01-02] MEDS: Lidocaine 1% (20 ml mdv) 20 ML Vial (10:30)
--- NOTE | 2021-01-02 10:58 | PCM.DC ---
Discharge Instructions Diet Discharge Diet: No restrictions Activity Discharge Activity: Return to Normal Activity May resume sexual activity in: 4 weeks Dressing / Incision Call your doctor if you observe: Fever of 101 or Higher, Using more than 1 pad per hour, Shortness of breath, Chest pain, Calf discomfort and Uncontrolled pain Follow Up Care Please Follow Up With: Christa Louis MD When: 2-4 weeks Test Results: Test results from this visit will be discussed in further detail at your follow-up appointment, if applicable. Discharge Plan Admission Attending Provider: Christa Leal Primary Care Provider: Ben Ivan Discharge Orders/Prescriptions Prescriptions: No Action leucovorin calcium 25 mg tablet 25 mg PO QWEEK RF: 0 sulfasalazine 500 mg tablet,delayed release (DR/EC) 500 mg PO BID RF: 0 methotrexate sodium 2.5 mg tablet 17.5 mg PO QWEEK RF: 0 propranolol 80 mg capsule,extended release 24 hr 80 mg PO QHS RF: 0 folic acid 1 mg tablet 2 mg PO DAILY RF: 0 ergocalciferol (vitamin D2) 1,250 mcg (50,000 unit) capsule 1,250 mcg PO BID RF: 0 topiramate 100 mg tablet 100 mg PO DAILY RF: 0 lithium carbonate 300 mg tablet 600 mg PO BID RF: 0 Disposition Discharge Orders: Discharge Patient (Routine); Ordered 01/02/21 Ordered By: Dr. Christa Louis
--- NOTE | 2021-01-02 11:04 | PCM.OPRPT ---
Problems Associated Problem List Diagnoses (1) Menorrhagia: (2) Status post hysteroscopy: (3) S/P endometrial ablation: Report of Operation Date of Procedure: 01/02/21 Pre-Operative Diagnosis: 1. Menorrhagia Post-Operative Diagnosis: 1. Menorrhagia Surgery/Procedure Performed:: 1. Hysteroscopy 2. Dilation and curettage 3. Zakiya endometrial ablation Description of Surgical Findings:: Normal-appearing uterine cavity, bilateral tubal ostia Surgeon: Christa Leal Type of Anesthesia: Local MAC Anesthesiologist: Yasir Souza Specimen's removed: Endometrial curettings Estimated Blood Loss (mL): 10 Fluids Replaced: 800 Description of Procedure: The patient was brought to the operating room and sign in performed. She is placed in the dorsal supine position and induced under MAC. She was repositioned to dorsolithotomy. The perineum was prepped and draped in sterile fashion with straight catheterization of the bladder performed. The patient was placed in the high lithotomy and a bivalve speculum was placed vaginally. 1% lidocaine was injected at the anterior cervical lip and a single-tooth tenaculum is placed at the site. A paracervical block was administered for a total of 20 cc of 1% lidocaine used during this case. The uterus was sounded, cervix was subsequently dilated and hysteroscopy performed. I proceeded with the endometrial ablation using the Zakiya system. The Zakiya array was introduced into the uterine cavity and deployed and secured. The ablation cycle was completed. The array was decompressed and removed from the uterine cavity. Repeat hysteroscopy was performed demonstrating global cavity ablation. The hysteroscope was removed. The tenaculum is removed from the cervix with hemostasis attained after compression the area x 2 minutes. The procedure was complete. The speculum was removed. The patient was placed into dorsal supine, awakened and transferred to the recovery room without complication. Sponge counts were correct x2. Complications Admit VTE Documentation VTE Present on Admission: No VTE Mechan Device Prophylaxis: SCD's VTE Pharm Prophylaxis ordered?: No Reason prophylaxis not ordered:: Treatment Not Indicated
== END 2021-01-02 12:51 | disposition home or self-care (01) ==
LOC: SDC 08:22 → AC 08:23
PROVIDERS: PCP Family Medicine; Referring Provider Obstetrics & Gynecology; Visit Provider Obstetrics & Gynecology
PROC: 0U5B8ZZ Destruction of Endometrium, Via Natural or Artificial Opening Endoscopic (ICD-10-PCS; CPT 58558; principal; 2021-01-02 09:45)
DX: N92.0 Excessive and frequent menstruation with regular cycle (principal); D68.51 Activated protein C resistance; F31.9 Bipolar disorder, unspecified; F41.9 Anxiety disorder, unspecified; M32.9 Systemic lupus erythematosus, unspecified; G43.909 Migraine, unspecified, not intractable, without status migrainosus; Z86.2 Personal history of diseases of the blood and blood-forming organs and certain disorders involving the immune mechanism; Z86.711 Personal history of pulmonary embolism; Z79.899 Other long term (current) drug therapy
CPT/HCPCS: 58563; 81025; 86850; 86900; 86901; 88305; J7120; J2405

== ENCOUNTER → 2021-03-13 16:21 | Outpatient (CLI) | payer OTHER, SELFPAY ==
[2021-03-13 17:57] LABS: Absolute Lymphocyte Count 2.04 X10^3/uL (0.83-4.51); Basophil# 0.05 X10^3/uL; Basophil% 0.5 % (0-1); Eosinophil# 0.14 X10^3/uL; Eosinophils% 1.4 % (0-5); Hematocrit 40.2 % (37-47); Hemoglobin 12.4 g/dL (12.0-15.0); Lymphocyte # 2.04 X10^3/ul (0.83-4.51); Lymphocyte % 20.6 % (19-41); Mean Corp Hgb Conc 30.8 g/dL (32-36); Mean Corpuscular Hgb 27.9 pg (27.0-32.0); Mean Corpuscular Volume 90.5 fL (81-99); Mean Platelet Vol. 9.5 fl (6.2-12.0); Monocyte# 0.61 X10^3/uL; Monocyte% 6.2 % (0-10); NRBC Flagged by Analyzer 0 % (0-5); Neutrophil # 7.02 X10^3/uL (2.7-7.7); Platelet Count 343 K/mm3 (150-450); RBC Distribution Width CV 14.6 % (11.6-14.6); Red Blood Count 4.44 M/mm3 (4.2-5.4); White Blood Count 9.9 K/mm3 (4.4-11.0)
[2021-03-13 18:14] LABS: ALB/GLOB Ratio 0.9 RATIO (0.9-2.4); AST(SGOT) 16 U/L (15-37); Alanine Aminotransfer ALT/SGPT 32 U/L (13-56); Albumin, Serum 3.3 g/dL (3.2-5.0); Alkaline Phosphatase 70 U/L (45-117); Anion Gap 6 (5-15); BUN 9 mg/dL (7-18); BUN/Creat Ratio 8.9 RATIO (10-20); Calcium,Total 8.8 mg/dL (8.5-10.1); Chloride 108 mmol/L (98-107); Creatinine, Serum 1.01 mg/dL (0.55-1.02); EST Glomerular Filtration Rate 63 mL/min (>60); Est Glom Filt Rate - Afr Amer 76 mL/min (>60); Globulin 3.5 g/dL (2.2-4.2); Glucose 107 mg/dL (74-106); Potassium 3.8 mmol/L (3.5-5.1); Protein, Total 6.8 g/dL (6.4-8.2); Sodium Level 140 mmol/L (136-145)
== END ==
PROVIDERS: PCP Family Medicine; Referring Provider Family Medicine; Visit Provider Internal Medicine Rheumatology
DX: M06.4 Inflammatory polyarthropathy (principal); M79.7 Fibromyalgia; F31.9 Bipolar disorder, unspecified; R51.9 Headache, unspecified; Z79.899 Other long term (current) drug therapy; Z85.820 Personal history of malignant melanoma of skin; Z86.711 Personal history of pulmonary embolism
CPT/HCPCS: 36415; 80053; 85025

== ENCOUNTER 2021-06-13 11:07 | Outpatient (CLI) | payer OTHER, SELFPAY ==
[2021-06-13 12:19] LABS: Absolute Neutrophil Count 6.7 X10^3/uL (2.0-7.7); Basophil# 0.05 X10^3/uL; Basophil% 0.5 % (0-1); Eosinophil# 0.17 X10^3/uL; Eosinophils% 1.8 % (0-5); Hematocrit 42.4 % (37-47); Lymphocyte % 20.1 % (19-41); Mean Corp Hgb Conc 30.7 g/dL (32-36); Mean Corpuscular Hgb 27.5 pg (27.0-32.0); Mean Corpuscular Volume 89.6 fL (81-99); Mean Platelet Vol. 9.2 fl (6.2-12.0); Monocyte# 0.55 X10^3/uL; Monocyte% 5.8 % (0-10); NRBC Flagged by Analyzer 0 % (0-5); Neutrophil # 6.73 X10^3/uL (2.7-7.7); Neutrophil % 71.3 % (47-70); Platelet Count 347 K/mm3 (150-450); RBC Distribution Width CV 15.2 % (11.6-14.6); RBC Distribution Width SD 49.5 fl (35.1-43.9); Red Blood Count 4.73 M/mm3 (4.2-5.4); White Blood Count 9.5 K/mm3 (4.4-11.0)
[2021-06-13 12:44] LABS: ALB/GLOB Ratio 0.9 RATIO (0.9-2.4); AST(SGOT) 17 U/L (15-37); Alanine Aminotransfer ALT/SGPT 32 U/L (13-56); Albumin, Serum 3.4 g/dL (3.2-5.0); Alkaline Phosphatase 83 U/L (45-117); Anion Gap 5 (5-15); BUN 9 mg/dL (7-18); BUN/Creat Ratio 10.1 RATIO (10-20); Calcium,Total 8.6 mg/dL (8.5-10.1); Chloride 111 mmol/L (98-107); EST Glomerular Filtration Rate 72 mL/min (>60); Est Glom Filt Rate - Afr Amer 88 mL/min (>60); Globulin 3.7 g/dL (2.2-4.2); Glucose 104 mg/dL (74-106); Protein, Total 7.1 g/dL (6.4-8.2); Sodium Level 140 mmol/L (136-145)
== END 2021-06-13 23:59 | disposition short-term general hospital (02) ==
LOC: MFPLAB 11:11
PROVIDERS: PCP Family Medicine; Referring Provider Family Medicine; Visit Provider Internal Medicine Rheumatology
DX: M06.4 Inflammatory polyarthropathy (principal); F31.9 Bipolar disorder, unspecified; M79.7 Fibromyalgia; R51.9 Headache, unspecified; Z79.899 Other long term (current) drug therapy; Z85.820 Personal history of malignant melanoma of skin; Z86.711 Personal history of pulmonary embolism
CPT/HCPCS: 36415; 80053; 85025

== ENCOUNTER 2021-07-09 08:33 | Outpatient (CLI) | payer OTHER, SELFPAY ==
[2021-07-09 10:21] LABS: Absolute Lymphocyte Count 1.58 X10^3/uL (0.83-4.51); Absolute Neutrophil Count 5.9 X10^3/uL (2.0-7.7); Basophil# 0.06 X10^3/uL; Basophil% 0.7 % (0-1); Eosinophil# 0.11 X10^3/uL; Eosinophils% 1.3 % (0-5); Hematocrit 42.6 % (37-47); Hemoglobin 13.4 g/dL (12.0-15.0); Lymphocyte # 1.58 X10^3/ul (0.83-4.51); Lymphocyte % 19.4 % (19-41); Mean Corp Hgb Conc 31.5 g/dL (32-36); Mean Corpuscular Hgb 28.3 pg (27.0-32.0); Mean Corpuscular Volume 89.9 fL (81-99); Mean Platelet Vol. 9.7 fl (6.2-12.0); Monocyte# 0.49 X10^3/uL; NRBC Flagged by Analyzer 0 % (0-5); Neutrophil # 5.89 X10^3/uL (2.7-7.7); Neutrophil % 72.4 % (47-70); Platelet Count 340 K/mm3 (150-450); RBC Distribution Width CV 14.3 % (11.6-14.6); RBC Distribution Width SD 47.3 fl (35.1-43.9); Red Blood Count 4.74 M/mm3 (4.2-5.4); White Blood Count 8.2 K/mm3 (4.4-11.0)
[2021-07-09 10:38] LABS: Hemoglobin A1c 5.4 % (3.8-5.6)
[2021-07-09 11:00] LABS: Ferritin 44 ng/mL (8-252); Iron 115 ug/dL (50-170); Iron Binding Capacity,Total 382 ug/dL (250-450); Thyroid Stim Hormone (TSH) 0.72 uIU/mL (0.358-3.74); Vitamin D,25 Hydroxy 20.1 ng/mL
== END 2021-07-09 23:59 | disposition home or self-care (01) ==
LOC: MFPLAB 08:34
PROVIDERS: PCP Family Medicine; Referring Provider Family Medicine; Visit Provider Family Medicine
DX: R79.0 Abnormal level of blood mineral (principal); F31.9 Bipolar disorder, unspecified; R73.09 Other abnormal glucose; E55.9 Vitamin D deficiency, unspecified
CPT/HCPCS: 36415; 82306; 82728; 83036; 83540; 83550; 84443; 85025

== ENCOUNTER → 2021-09-11 | Outpatient (CLI) | payer OTHER, SELFPAY ==
[2021-09-11 09:56] LABS: Absolute Lymphocyte Count 1.49 X10^3/uL (0.83-4.51); Absolute Neutrophil Count 7.3 X10^3/uL (2.0-7.7); Basophil# 0.04 X10^3/uL; Basophil% 0.4 % (0-1); Eosinophil# 0.12 X10^3/uL; Eosinophils% 1.3 % (0-5); Hematocrit 41.6 % (37-47); Hemoglobin 12.9 g/dL (12.0-15.0); Lymphocyte # 1.49 X10^3/ul (0.83-4.51); Lymphocyte % 15.6 % (19-41); Mean Corpuscular Volume 90.2 fL (81-99); Mean Platelet Vol. 9.5 fl (6.2-12.0); Monocyte# 0.56 X10^3/uL; Monocyte% 5.9 % (0-10); NRBC Flagged by Analyzer 0 % (0-5); Neutrophil % 76.4 % (47-70); Platelet Count 361 K/mm3 (150-450); RBC Distribution Width CV 15.1 % (11.6-14.6); RBC Distribution Width SD 49.2 fl (35.1-43.9); Red Blood Count 4.61 M/mm3 (4.2-5.4); White Blood Count 9.6 K/mm3 (4.4-11.0)
[2021-09-11 10:27] LABS: ALB/GLOB Ratio 0.9 RATIO (0.9-2.4); AST(SGOT) 19 U/L (15-37); Alanine Aminotransfer ALT/SGPT 34 U/L (13-56); Albumin, Serum 3.2 g/dL (3.2-5.0); Alkaline Phosphatase 71 U/L (45-117); Anion Gap 7 (5-15); BUN 12 mg/dL (7-18); BUN/Creat Ratio 12.1 RATIO (10-20); Calcium,Total 8.8 mg/dL (8.5-10.1); Chloride 111 mmol/L (98-107); Creatinine, Serum 0.99 mg/dL (0.55-1.02); EST Glomerular Filtration Rate 64 mL/min (>60); Est Glom Filt Rate - Afr Amer 78 mL/min (>60); Globulin 3.4 g/dL (2.2-4.2); Glucose 129 mg/dL (74-106); Potassium 4.4 mmol/L (3.5-5.1); Protein, Total 6.6 g/dL (6.4-8.2); Sodium Level 139 mmol/L (136-145)
== END | disposition home or self-care (01) ==
PROVIDERS: PCP Family Medicine; Referring Provider Family Medicine; Visit Provider Internal Medicine Rheumatology
DX: M06.4 Inflammatory polyarthropathy (principal); F31.9 Bipolar disorder, unspecified; M79.7 Fibromyalgia; R51.9 Headache, unspecified; Z85.820 Personal history of malignant melanoma of skin; Z86.711 Personal history of pulmonary embolism; Z79.899 Other long term (current) drug therapy
CPT/HCPCS: 36415; 80053; 85025

== ENCOUNTER → 2021-09-22 | Outpatient (CLI) | payer OTHER, SELFPAY | END | disposition home or self-care (01) | PROVIDERS: PCP Family Medicine; Visit Provider Registered Nurse | DX: J06.9 Acute upper respiratory infection, unspecified (principal); Z20.822 Contact with and (suspected) exposure to COVID-19 | CPT/HCPCS: 87633; 87635; U0003; U0005 ==

== ENCOUNTER → 2021-12-01 | Outpatient (CLI) | payer OTHER, SELFPAY ==
--- NOTE | 2021-12-01 | CYST_PTH ---
PATIENT: CHI FERNANDEZ LOC: [facility] U#:[id number] AGE/SX: 46/F ROOM: RE12/01/[address]: Dr. Ben Ivan MD : 1975 BED: DIS: 12/01/2021 SPEC #: [id number] RECD: 12/01/21 15:08 STATUS: HARDIK BRENDEN #: [id number] DAJUAN: 12/01/21 00:[address]: Ben Ivan DEPT: SURGICAL PATHOLOGY RECD BY: Philip Reardon Tissues: CYST Procedures: Surgery Specimen Level III HEADER OPERATION: Sebaceous cyst excision PRE-OP DIAGNOSIS: Sebaceous cyst TISSUE SUBMITTED: Sebaceous cyst MICROSCOPIC DIAGNOSIS Sebaceous cyst, excision: Keratin debris consistent with epidermal inclusion cyst. AM:eben 12/03/2021 MICROSCOPIC DESCRIPTION Slides are reviewed. GROSS DESCRIPTION Received is one container labeled with the patient's name and not further designated. The specimen consists of multiple irregular fragments of mcmillan-white soft tissue that in aggregate measure 2.5 x 2 x 0.2 cm. The specimen is totally submitted in one cassette. / AM:eben 12/02/2021 TC:5 [facility]: [id number]
== END | disposition home or self-care (01) ==
LOC: LABSPEC 15:19
PROVIDERS: PCP Family Medicine; Visit Provider Family Medicine
DX: L72.3 Sebaceous cyst (principal)
CPT/HCPCS: 88304

== ENCOUNTER 2021-12-15 12:09 | Outpatient (CLI) | payer OTHER, SELFPAY ==
[2021-12-15 15:01] LABS: Absolute Lymphocyte Count 2.69 X10^3/uL (0.83-4.51); Absolute Neutrophil Count 8.2 X10^3/uL (2.0-7.7); Basophil# 0.06 X10^3/uL; Basophil% 0.5 % (0-1); Eosinophil# 0.23 X10^3/uL; Eosinophils% 1.9 % (0-5); Hematocrit 42.6 % (37-47); Hemoglobin 13.3 g/dL (12.0-15.0); Lymphocyte # 2.69 X10^3/ul (0.83-4.51); Lymphocyte % 22.3 % (19-41); Mean Corp Hgb Conc 31.2 g/dL (32-36); Mean Corpuscular Hgb 28.6 pg (27.0-32.0); Mean Corpuscular Volume 91.6 fL (81-99); Mean Platelet Vol. 9.6 fl (6.2-12.0); Monocyte# 0.85 X10^3/uL; NRBC Flagged by Analyzer 0 % (0-5); Neutrophil # 8.19 X10^3/uL (2.7-7.7); Neutrophil % 67.9 % (47-70); Platelet Count 312 K/mm3 (150-450); RBC Distribution Width CV 14.8 % (11.6-14.6); RBC Distribution Width SD 49.1 fl (35.1-43.9); Red Blood Count 4.65 M/mm3 (4.2-5.4); White Blood Count 12.1 K/mm3 (4.4-11.0)
[2021-12-15 15:19] LABS: ALB/GLOB Ratio 0.9 RATIO (0.9-2.4); AST(SGOT) 15 U/L (15-37); Alanine Aminotransfer ALT/SGPT 41 U/L (13-56); Albumin, Serum 3.3 g/dL (3.2-5.0); Alkaline Phosphatase 69 U/L (45-117); Anion Gap 5 (5-15); BUN 15 mg/dL (7-18); BUN/Creat Ratio 13.5 RATIO (10-20); Chloride 110 mmol/L (98-107); Creatinine, Serum 1.11 mg/dL (0.55-1.02); EST Glomerular Filtration Rate 56 mL/min (>60); Est Glom Filt Rate - Afr Amer 68 mL/min (>60); Globulin 3.5 g/dL (2.2-4.2); Glucose 102 mg/dL (74-106); Potassium 4.2 mmol/L (3.5-5.1); Protein, Total 6.8 g/dL (6.4-8.2); Sodium Level 141 mmol/L (136-145)
== END 2021-12-15 23:59 | disposition home or self-care (01) ==
LOC: MFPLAB 12:10
PROVIDERS: PCP Family Medicine; Visit Provider Internal Medicine Rheumatology
DX: M06.4 Inflammatory polyarthropathy (principal); F31.9 Bipolar disorder, unspecified; M79.7 Fibromyalgia; R51.9 Headache, unspecified; Z85.820 Personal history of malignant melanoma of skin; Z86.711 Personal history of pulmonary embolism; Z79.899 Other long term (current) drug therapy
CPT/HCPCS: 36415; 80053; 85025

== ENCOUNTER → 2022-01-21 | Outpatient (CLI) | payer OTHER, SELFPAY ==
[2022-01-21 10:18] LABS: Absolute Lymphocyte Count 1.87 X10^3/uL (0.83-4.51); Absolute Neutrophil Count 8.3 X10^3/uL (2.0-7.7); Basophil# 0.05 X10^3/uL; Basophil% 0.4 % (0-1); Eosinophil# 0.25 X10^3/uL; Eosinophils% 2.2 % (0-5); Hematocrit 42.4 % (37-47); Hemoglobin 12.9 g/dL (12.0-15.0); Lymphocyte # 1.87 X10^3/ul (0.83-4.51); Lymphocyte % 16.8 % (19-41); Mean Corp Hgb Conc 30.4 g/dL (32-36); Mean Corpuscular Hgb 28.4 pg (27.0-32.0); Mean Corpuscular Volume 93.2 fL (81-99); Mean Platelet Vol. 9.4 fl (6.2-12.0); Monocyte# 0.66 X10^3/uL; Monocyte% 5.9 % (0-10); NRBC Flagged by Analyzer 0 % (0-5); Neutrophil # 8.25 X10^3/uL (2.7-7.7); Platelet Count 384 K/mm3 (150-450); RBC Distribution Width CV 14.8 % (11.6-14.6); Red Blood Count 4.55 M/mm3 (4.2-5.4); White Blood Count 11.2 K/mm3 (4.4-11.0)
[2022-01-21 10:54] LABS: ALB/GLOB Ratio 0.8 RATIO (0.9-2.4); AST(SGOT) 18 U/L (15-37); Alanine Aminotransfer ALT/SGPT 42 U/L (13-56); Albumin, Serum 3.1 g/dL (3.2-5.0); Alkaline Phosphatase 77 U/L (45-117); Anion Gap 6 (5-15); BUN 9 mg/dL (7-18); BUN/Creat Ratio 8.7 RATIO (10-20); Calcium,Total 9.1 mg/dL (8.5-10.1); Chloride 112 mmol/L (98-107); Creatinine, Serum 1.03 mg/dL (0.55-1.02); EST Glomerular Filtration Rate 61 mL/min (>60); Est Glom Filt Rate - Afr Amer 74 mL/min (>60); Globulin 3.7 g/dL (2.2-4.2); Glucose 123 mg/dL (74-106); Potassium 4.5 mmol/L (3.5-5.1); Protein, Total 6.8 g/dL (6.4-8.2); Sodium Level 142 mmol/L (136-145)
== END | disposition home or self-care (01) ==
LOC: MFPLAB 08:24
PROVIDERS: PCP Family Medicine; Referring Provider Family Medicine; Visit Provider Internal Medicine Rheumatology
DX: M06.4 Inflammatory polyarthropathy (principal); F31.9 Bipolar disorder, unspecified; M79.7 Fibromyalgia; R51.9 Headache, unspecified; Z85.820 Personal history of malignant melanoma of skin; Z86.711 Personal history of pulmonary embolism; Z79.899 Other long term (current) drug therapy
CPT/HCPCS: 36415; 80053; 85025

== ENCOUNTER 2022-03-19 15:39 | Outpatient (CLI) | payer OTHER, SELFPAY ==
[2022-03-19 18:14] LABS: Absolute Neutrophil Count 7.3 X10^3/uL (2.0-7.7); Basophil# 0.07 X10^3/uL; Basophil% 0.6 % (0-1); Eosinophil# 0.23 X10^3/uL; Eosinophils% 2.1 % (0-5); Hematocrit 39.7 % (37-47); Hemoglobin 12.9 g/dL (12.0-15.0); Mean Corp Hgb Conc 32.5 g/dL (32-36); Mean Corpuscular Hgb 30.4 pg (27.0-32.0); Mean Corpuscular Volume 93.4 fL (81-99); Monocyte# 0.71 X10^3/uL; Monocyte% 6.5 % (0-10); NRBC Flagged by Analyzer 0 % (0-5); Neutrophil # 7.31 X10^3/uL (2.7-7.7); Neutrophil % 67.3 % (47-70); Platelet Count 363 K/mm3 (150-450); RBC Distribution Width CV 15.1 % (11.6-14.6); RBC Distribution Width SD 51.1 fl (35.1-43.9); Red Blood Count 4.25 M/mm3 (4.2-5.4); White Blood Count 10.9 K/mm3 (4.4-11.0)
[2022-03-19 19:16] LABS: AST(SGOT) 33 U/L (15-37); Alanine Aminotransfer ALT/SGPT 77 U/L (13-56); Albumin, Serum 3.2 g/dL (3.2-5.0); Alkaline Phosphatase 72 U/L (45-117); Anion Gap 8 (5-15); BUN 11 mg/dL (7-18); BUN/Creat Ratio 10.1 RATIO (10-20); Calcium,Total 9.1 mg/dL (8.5-10.1); Chloride 112 mmol/L (98-107); Creatinine, Serum 1.09 mg/dL (0.55-1.02); EST Glomerular Filtration Rate 58 mL/min (>60); Est Glom Filt Rate - Afr Amer 70 mL/min (>60); Globulin 3.3 g/dL (2.2-4.2); Glucose 129 mg/dL (74-106); Potassium 3.9 mmol/L (3.5-5.1); Protein, Total 6.5 g/dL (6.4-8.2); Sodium Level 142 mmol/L (136-145)
== END 2022-03-19 23:59 | disposition home or self-care (01) ==
LOC: MFPLAB 15:40
PROVIDERS: PCP Family Medicine; Referring Provider Family Medicine; Visit Provider Internal Medicine Rheumatology
DX: M06.4 Inflammatory polyarthropathy (principal); F31.9 Bipolar disorder, unspecified; M79.7 Fibromyalgia; R51.9 Headache, unspecified; Z85.820 Personal history of malignant melanoma of skin; Z86.711 Personal history of pulmonary embolism; Z79.899 Other long term (current) drug therapy
CPT/HCPCS: 36415; 80053; 85025

== ENCOUNTER → 2022-04-02 | Outpatient (CLI) | payer OTHER, SELFPAY ==
--- NOTE | 2022-04-02 09:58 | US_ITS ---
STUDY: ABDOMINAL ULTRASOUND - RIGHT UPPER QUADRANT REASON FOR VISIT: Female, 46 years old ELEVATED LIVER ENZYMES TECHNIQUE: Ultrasound evaluation of the right upper quadrant was performed with real-time and static hampton-scale imaging. TECHNICAL QUALITY: Limited. Examination limited by bowel gas. COMPARISON: None. FINDINGS: Liver: The liver measures 16.6 cm. There is increased echogenicity consistent with fatty infiltration. The bile ducts are within normal limits. There is hepatic color flow. The direction of portal flow is hepatopetal. There is a 3.3 cm x 2.5 cm x 2.5 cm well-defined hypoechoic nodule along the inferior aspect of the right lobe of the liver. Correlation with a CT scan is recommended. Gallbladder: The patient is status post cholecystectomy. Common Bile Duct (C.B.D.): The common bile duct measures 4.4 mm. Pancreas: Normal size of the head, body and tail of the pancreas. Right Kidney: Normal size of the right kidney. The right kidney measures 10.7 cm x 4.4 cm x 4.5 cm. Normal renal cortex. The right cortex measures 2.0 cm. There is no demonstrated renal mass or cyst. There is no right hydronephrosis. US/Liver IMPRESSION: Fatty infiltration of the liver. 3.3 cm x 2.5 cm x 2.5 cm well-defined hypoechoic nodule along the inferior aspect of the right lobe of the liver. Correlation with a CT scan is recommended. Electronically Signed: Andi Castelan MD at 11:13 EST ,
== END | disposition home or self-care (01) ==
LOC: US 09:55
PROVIDERS: PCP Family Medicine; Referring Provider Internal Medicine Rheumatology; Visit Provider Internal Medicine Rheumatology
DX: R94.5 Abnormal results of liver function studies (principal); M06.4 Inflammatory polyarthropathy; F31.9 Bipolar disorder, unspecified; Z79.899 Other long term (current) drug therapy; M79.7 Fibromyalgia; R51.9 Headache, unspecified; Z85.820 Personal history of malignant melanoma of skin; Z86.711 Personal history of pulmonary embolism
CPT/HCPCS: 76705

== ENCOUNTER → 2022-04-20 | Outpatient (CLI) | payer OTHER, SELFPAY ==
[2022-04-20 15:30] LABS: ALB/GLOB Ratio 1.2 RATIO (0.9-2.4); AST(SGOT) 21 U/L (15-37); Alanine Aminotransfer ALT/SGPT 36 U/L (13-56); Albumin, Serum 3.5 g/dL (3.2-5.0); Alkaline Phosphatase 73 U/L (45-117); Anion Gap 6 (5-15); BUN 9 mg/dL (7-18); BUN/Creat Ratio 9.1 RATIO (10-20); Calcium,Total 8.7 mg/dL (8.5-10.1); Chloride 108 mmol/L (98-107); Creatinine, Serum 0.98 mg/dL (0.55-1.02); EST Glomerular Filtration Rate 65 mL/min (>60); Est Glom Filt Rate - Afr Amer 78 mL/min (>60); Glucose 183 mg/dL (74-106); Protein, Total 6.5 g/dL (6.4-8.2); Sodium Level 139 mmol/L (136-145)
== END | disposition home or self-care (01) ==
LOC: MFPLAB 12:22
PROVIDERS: PCP Family Medicine; Visit Provider Internal Medicine Rheumatology
DX: M06.4 Inflammatory polyarthropathy (principal); F31.9 Bipolar disorder, unspecified; M79.7 Fibromyalgia; R51.9 Headache, unspecified; Z85.820 Personal history of malignant melanoma of skin; Z86.711 Personal history of pulmonary embolism; Z79.899 Other long term (current) drug therapy
CPT/HCPCS: 36415; 80053

== ENCOUNTER → 2022-04-21 | Outpatient (CLI) | payer OTHER, SELFPAY ==
[2022-04-21 10:12] LABS: Hemoglobin A1c 5.6 % (3.8-5.6)
[2022-04-21 10:28] LABS: Vitamin D,25 Hydroxy 21.7 ng/mL
== END | disposition home or self-care (01) ==
LOC: MFPLAB 08:58
PROVIDERS: PCP Family Medicine; Referring Provider Family Medicine; Visit Provider Family Medicine
DX: R73.9 Hyperglycemia, unspecified (principal); E55.9 Vitamin D deficiency, unspecified
CPT/HCPCS: 36415; 80178; 82306; 83036

== ENCOUNTER 2022-04-23 14:06 | Outpatient (RCR) | payer OTHER, SELFPAY | END 2022-05-16 23:59 | LOC: NS 14:06 | PROVIDERS: PCP Family Medicine; Referring Provider Family Medicine; Visit Provider Family Medicine | DX: Z71.3 Dietary counseling and surveillance (principal); Z68.41 Body mass index [BMI] 40.0-44.9, adult | CPT/HCPCS: 97802 ==

== ENCOUNTER → 2022-05-21 | Outpatient (CLI) | payer BC, SELFPAY ==
--- NOTE | 2022-05-21 17:59 | CT_ITS ---
EXAM: CT ABDOMEN WITH INTRAVENOUS CONTRAST CLINICAL INDICATION: liver mass TECHNIQUE: Helically acquired images were obtained of the abdomen with intravenous contrast. This CT exam was performed using one or more of the following dose reduction techniques: automated exposure control, adjustment of the mA and/or kV according to patient size, and/or use of iterative reconstruction technique. This report was created using [employer] report generation technology. CONTRAST: IV 100mL [id number] COMPARISON: None. FINDINGS: LOWER THORAX: Unremarkable. Lung bases are clear. No cardiomegaly. No significant pericardial effusion. LIVER: Liver is decreased in attenuation compatible with fatty infiltration. GALLBLADDER AND BILE DUCTS: Unremarkable. No calcified gallstones. No gallbladder distention or wall edema. No intra- or extrahepatic biliary ductal dilation. PANCREAS: Unremarkable. No focal cystic or solid mass. SPLEEN: Unremarkable. Normal size without focal cystic or solid mass. ADRENALS: There is a low-density lesion in the right adrenal gland that measures 3.0 x 2.2 x 2.5 cm compatible with an adenoma. No follow-up imaging is necessary. Consider biochemical assays to determine functional status and exclude pheochromocytoma if biopsy/resection is planned. KIDNEYS AND URETERS: Unremarkable. Normal renal size and position. No hydronephrosis. STOMACH AND BOWEL: Unremarkable. No stomach or bowel distention. No focal inflammatory change. INTRAPERITONEAL SPACE: Unremarkable. No ascites or other fluid collection. No free air. BONES/JOINTS: Unremarkable. No suspicious lytic or blastic abnormality. SOFT TISSUES: Unremarkable. No discrete abdominal wall hernia. VASCULATURE: There is a round calcified lesion in the hilum of the spleen that measures 1.8 cm may represent a calcified splenic artery aneurysm. LYMPH NODES: No enlarged lymph nodes. CT/Abdomen WITH IV Contrast IMPRESSION: Low-density lesion of the right adrenal gland compatible with an adenoma. Peripherally calcified splenic artery aneurysm in the hilum. No hepatic abnormalities are identified. Electronically Signed: Pedrito Delaney MD at 23:52 EST ,
== END | disposition home or self-care (01) ==
LOC: CT 17:49
PROVIDERS: PCP Family Medicine; Referring Provider Family Medicine; Visit Provider Family Medicine
DX: R16.0 Hepatomegaly, not elsewhere classified (principal)
CPT/HCPCS: 74160; Q9967

== ENCOUNTER 2022-06-17 11:35 | Outpatient (CLI) | payer BC, SELFPAY ==
[2022-06-17 14:55] LABS: Absolute Lymphocyte Count 2.38 X10^3/uL (0.83-4.51); Absolute Neutrophil Count 7.4 X10^3/uL (2.0-7.7); Basophil# 0.07 X10^3/uL; Basophil% 0.6 % (0-1); Eosinophil# 0.23 X10^3/uL; Eosinophils% 2.1 % (0-5); Hematocrit 44.1 % (37-47); Hemoglobin 13.7 g/dL (12.0-15.0); Lymphocyte # 2.38 X10^3/ul (0.83-4.51); Lymphocyte % 21.9 % (19-41); Mean Corp Hgb Conc 31.1 g/dL (32-36); Mean Corpuscular Hgb 28.8 pg (27.0-32.0); Mean Corpuscular Volume 92.6 fL (81-99); Mean Platelet Vol. 9.3 fl (6.2-12.0); Monocyte% 6.5 % (0-10); NRBC Flagged by Analyzer 0 % (0-5); Neutrophil # 7.42 X10^3/uL (2.7-7.7); Neutrophil % 68.4 % (47-70); Platelet Count 366 K/mm3 (150-450); RBC Distribution Width CV 13.9 % (11.6-14.6); RBC Distribution Width SD 46.3 fl (35.1-43.9); Red Blood Count 4.76 M/mm3 (4.2-5.4); White Blood Count 10.9 K/mm3 (4.4-11.0)
[2022-06-17 15:45] LABS: ALB/GLOB Ratio 1.1 RATIO (0.9-2.4); AST(SGOT) 79 U/L (15-37); Alanine Aminotransfer ALT/SGPT 157 U/L (13-56); Albumin, Serum 3.4 g/dL (3.2-5.0); Alkaline Phosphatase 79 U/L (45-117); Anion Gap 8 (5-15); BUN 12 mg/dL (7-18); BUN/Creat Ratio 13.2 RATIO (10-20); Calcium,Total 8.9 mg/dL (8.5-10.1); Chloride 109 mmol/L (98-107); Creatinine, Serum 0.91 mg/dL (0.55-1.02); EST Glomerular Filtration Rate 71 mL/min (>60); Est Glom Filt Rate - Afr Amer 86 mL/min (>60); Globulin 3.2 g/dL (2.2-4.2); Glucose 93 mg/dL (74-106); Potassium 4.5 mmol/L (3.5-5.1); Protein, Total 6.6 g/dL (6.4-8.2); Sodium Level 142 mmol/L (136-145)
== END 2022-06-17 23:59 | disposition home or self-care (01) ==
PROVIDERS: PCP Family Medicine; Referring Provider Family Medicine; Visit Provider Internal Medicine Rheumatology
DX: M06.4 Inflammatory polyarthropathy (principal); F31.9 Bipolar disorder, unspecified; Z79.899 Other long term (current) drug therapy; M79.7 Fibromyalgia; R51.0 Headache with orthostatic component, not elsewhere classified; Z85.820 Personal history of malignant melanoma of skin; Z86.711 Personal history of pulmonary embolism
CPT/HCPCS: 36415; 80053; 85025

== ENCOUNTER → 2022-07-14 | Outpatient (CLI) | payer BC, SELFPAY ==
[2022-07-14 12:57] LABS: ALB/GLOB Ratio 1.1 RATIO (0.9-2.4); AST(SGOT) 24 U/L (15-37); Alanine Aminotransfer ALT/SGPT 47 U/L (13-56); Albumin, Serum 3.6 g/dL (3.2-5.0); Alkaline Phosphatase 83 U/L (45-117); Anion Gap 5 (5-15); BUN 12 mg/dL (7-18); BUN/Creat Ratio 13.1 RATIO (10-20); Calcium,Total 9.6 mg/dL (8.5-10.1); Chloride 109 mmol/L (98-107); Creatinine, Serum 0.92 mg/dL (0.55-1.02); EST Glomerular Filtration Rate 70 mL/min (>60); Est Glom Filt Rate - Afr Amer 85 mL/min (>60); Globulin 3.2 g/dL (2.2-4.2); Glucose 102 mg/dL (74-106); Potassium 4.4 mmol/L (3.5-5.1); Protein, Total 6.8 g/dL (6.4-8.2); Sodium Level 142 mmol/L (136-145)
== END | disposition home or self-care (01) ==
LOC: MFPLAB 11:25
PROVIDERS: PCP Family Medicine; Referring Provider Family Medicine; Visit Provider Internal Medicine Rheumatology
DX: M06.4 Inflammatory polyarthropathy (principal); F31.9 Bipolar disorder, unspecified; Z79.899 Other long term (current) drug therapy; M79.7 Fibromyalgia; R51.9 Headache, unspecified; Z85.820 Personal history of malignant melanoma of skin; Z86.711 Personal history of pulmonary embolism; K76.0 Fatty (change of) liver, not elsewhere classified
CPT/HCPCS: 36415; 80053

== ENCOUNTER → 2022-08-20 | Outpatient (CLI) | payer BC, SELFPAY ==
[2022-08-20 10:07] LABS: AST(SGOT) 25 U/L (15-37); Alanine Aminotransfer ALT/SGPT 37 U/L (13-56); Albumin, Serum 3.3 g/dL (3.2-5.0); Alkaline Phosphatase 74 U/L (45-117); Anion Gap 4 (5-15); BUN 7 mg/dL (7-18); BUN/Creat Ratio 6.8 RATIO (10-20); Calcium,Total 9.2 mg/dL (8.5-10.1); Chloride 109 mmol/L (98-107); Creatinine, Serum 1.03 mg/dL (0.55-1.02); EST Glomerular Filtration Rate 61 mL/min (>60); Est Glom Filt Rate - Afr Amer 74 mL/min (>60); Globulin 3.4 g/dL (2.2-4.2); Glucose 126 mg/dL (74-106); Protein, Total 6.7 g/dL (6.4-8.2); Sodium Level 139 mmol/L (136-145)
[2022-08-20 12:41] LABS: Vitamin D,25 Hydroxy 36.4 ng/mL
[2022-08-21 11:25] LABS: Hemoglobin A1c 5.5 % (3.8-5.6)
== END | disposition home or self-care (01) ==
LOC: MFPLAB 08:40
PROVIDERS: PCP Family Medicine; Referring Provider Family Medicine; Visit Provider Family Medicine
DX: R73.09 Other abnormal glucose (principal); E55.9 Vitamin D deficiency, unspecified
CPT/HCPCS: 36415; 80053; 82306; 83036

== ENCOUNTER → 2022-09-02 | Outpatient (CLI) | payer BC, SELFPAY ==
--- NOTE | 2022-09-02 16:25 | MRI_ITS ---
INDICATION: BRAIN TUMOR -- PITUITARY EXAMINATION: MRI - MR Brain WO/W Contrast TECHNIQUE: Multiplanar and multisequence MR images of the brain were obtained without and with gadolinium. IV Contrast Dosage and Agent: 24 cc clariscan. COMPARISON: 09/30/2020. FINDINGS: BRAIN AND EXTRA-AXIAL SPACES: No intracranial mass, mass effect, or midline shift. No enhancing mass. No hemorrhage, territorial infarct or acute ischemia. Matter is unremarkable. Ventricles are normal in size. Basal cisterns are unremarkable. SELLA: Pituitary gland is normal in height. Normal enhancement. No evidence of pituitary mass or adenoma. Redemonstrated prominence of the pituitary stalk near the hypothalamus measuring approximately 4 x 3 mm, no change from prior. AUDITORY SYSTEM: Unremarkable. BONES/JOINTS: Unremarkable. SINUSES: Mild mucosal thickening in the maxillary and left sphenoid sinuses. MASTOID AIR CELLS: Unremarkable as visualized. Clear. ORBITS: Unremarkable as visualized. VASCULATURE: Normal flow voids in the major intracranial circulation. MRI/Brain W/WO Contrast IMPRESSION: No interval change in slight prominence of the pituitary stalk. The study is otherwise unremarkable. Electronically Signed: Simona Swenson MD at 23:23 EDT Reading Location ID and State: [id number] / Tel , Service support ,
== END | disposition home or self-care (01) ==
LOC: MRI 16:11
PROVIDERS: PCP Family Medicine; Referring Provider Family Medicine; Visit Provider Family Medicine
DX: D49.6 Neoplasm of unspecified behavior of brain (principal)
CPT/HCPCS: 70553; A9575

== ENCOUNTER → 2022-10-13 | Outpatient (CLI) | payer BC, SELFPAY ==
[2022-10-13 17:43] LABS: Absolute Lymphocyte Count 2.65 X10^3/uL (0.83-4.51); Basophil# 0.08 X10^3/uL; Basophil% 0.7 % (0-1); Eosinophil# 0.22 X10^3/uL; Eosinophils% 1.9 % (0-5); Hematocrit 45.7 % (37-47); Hemoglobin 13.7 g/dL (12.0-15.0); Lymphocyte # 2.65 X10^3/ul (0.83-4.51); Lymphocyte % 22.3 % (19-41); Mean Corpuscular Hgb 27.8 pg (27.0-32.0); Mean Corpuscular Volume 92.7 fL (81-99); Mean Platelet Vol. 10.2 fl (6.2-12.0); Monocyte# 0.86 X10^3/uL; Monocyte% 7.2 % (0-10); NRBC Flagged by Analyzer 0 % (0-5); Neutrophil # 8.02 X10^3/uL (2.7-7.7); Neutrophil % 67.6 % (47-70); Platelet Count 352 K/mm3 (150-450); RBC Distribution Width CV 13.7 % (11.6-14.6); RBC Distribution Width SD 47.3 fl (35.1-43.9); Red Blood Count 4.93 M/mm3 (4.2-5.4); White Blood Count 11.9 K/mm3 (4.4-11.0)
[2022-10-13 17:58] LABS: ALB/GLOB Ratio 0.9 RATIO (0.9-2.4); AST(SGOT) 12 U/L (15-37); Alanine Aminotransfer ALT/SGPT 25 U/L (13-56); Albumin, Serum 3.3 g/dL (3.2-5.0); Alkaline Phosphatase 70 U/L (45-117); Anion Gap 8 (5-15); BUN 14 mg/dL (7-18); BUN/Creat Ratio 12.7 RATIO (10-20); Calcium,Total 9.3 mg/dL (8.5-10.1); Chloride 111 mmol/L (98-107); EST Glomerular Filtration Rate 57 mL/min (>60); Est Glom Filt Rate - Afr Amer 69 mL/min (>60); Globulin 3.5 g/dL (2.2-4.2); Glucose 90 mg/dL (74-106); Potassium 4.3 mmol/L (3.5-5.1); Protein, Total 6.8 g/dL (6.4-8.2); Sodium Level 141 mmol/L (136-145)
== END | disposition home or self-care (01) ==
LOC: MFPLAB 14:20
PROVIDERS: PCP Family Medicine; Visit Provider Internal Medicine Rheumatology
DX: M06.4 Inflammatory polyarthropathy (principal); Z79.899 Other long term (current) drug therapy; K76.0 Fatty (change of) liver, not elsewhere classified
CPT/HCPCS: 36415; 80053; 85025

== ENCOUNTER → 2022-10-29 | Outpatient (CLI) | payer BC, SELFPAY ==
[2022-10-29 11:34] LABS: HIV - WCH Non-Reactive (Nonreactive); Hepatitis B Surface Antigen Non-Reactive (Nonreactive); Hepatitis C Antibody Non-Reactive (Nonreactive); Syphilis Antibodies Non-reactive
== END | disposition home or self-care (01) ==
PROVIDERS: PCP Family Medicine; Referring Provider Family Medicine; Visit Provider Family Medicine
DX: Z12.4 Encounter for screening for malignant neoplasm of cervix (principal)
CPT/HCPCS: 36415; 86703; 86780; 86803; 87340

== ENCOUNTER → 2022-11-03 | Outpatient (CLI) | payer BC, SELFPAY ==
[2022-11-11 12:08] LABS: HPV APTIMA, High Risk Negative (Negative)
[2022-11-11 20:24] LABS: HPV Reflexed? YES, CHARGE PATIENT
== END | disposition home or self-care (01) ==
LOC: LABSPEC 17:38
PROVIDERS: PCP Family Medicine; Visit Provider Family Medicine
DX: Z12.4 Encounter for screening for malignant neoplasm of cervix (principal)
CPT/HCPCS: 87624; 88175; G0145

== ENCOUNTER → 2022-12-30 | Outpatient (CLI) | payer BC, SELFPAY ==
[2022-12-30 15:26] LABS: Absolute Lymphocyte Count 2.78 X10^3/uL (0.83-4.51); Absolute Neutrophil Count 8.7 X10^3/uL (2.0-7.7); Basophil# 0.08 X10^3/uL; Basophil% 0.6 % (0-1); Eosinophil# 0.19 X10^3/uL; Eosinophils% 1.5 % (0-5); Hematocrit 45.2 % (37-47); Hemoglobin 13.4 g/dL (12.0-15.0); Lymphocyte # 2.78 X10^3/ul (0.83-4.51); Lymphocyte % 22.1 % (19-41); Mean Corp Hgb Conc 29.6 g/dL (32-36); Mean Corpuscular Hgb 28.2 pg (27.0-32.0); Mean Corpuscular Volume 95.2 fL (81-99); Mean Platelet Vol. 9.8 fl (6.2-12.0); Monocyte# 0.75 X10^3/uL; NRBC Flagged by Analyzer 0 % (0-5); Neutrophil # 8.73 X10^3/uL (2.7-7.7); Neutrophil % 69.5 % (47-70); Platelet Count 342 K/mm3 (150-450); RBC Distribution Width CV 12.9 % (11.6-14.6); Red Blood Count 4.75 M/mm3 (4.2-5.4); White Blood Count 12.6 K/mm3 (4.4-11.0)
[2022-12-30 16:29] LABS: ALB/GLOB Ratio 0.9 RATIO (0.9-2.4); AST(SGOT) 15 U/L (15-37); Alanine Aminotransfer ALT/SGPT 28 U/L (13-56); Albumin, Serum 3.1 g/dL (3.2-5.0); Alkaline Phosphatase 75 U/L (45-117); Anion Gap 5 (5-15); BUN 11 mg/dL (7-18); BUN/Creat Ratio 9.6 RATIO (10-20); Calcium,Total 8.7 mg/dL (8.5-10.1); Chloride 111 mmol/L (98-107); Creatinine, Serum 1.14 mg/dL (0.55-1.02); EST Glomerular Filtration Rate 54 mL/min (>60); Est Glom Filt Rate - Afr Amer 66 mL/min (>60); Globulin 3.5 g/dL (2.2-4.2); Glucose 151 mg/dL (74-106); Potassium 3.5 mmol/L (3.5-5.1); Protein, Total 6.6 g/dL (6.4-8.2); Sodium Level 140 mmol/L (136-145)
== END | disposition home or self-care (01) ==
LOC: MFPLAB 13:57
PROVIDERS: PCP Family Medicine; Visit Provider Internal Medicine Rheumatology
DX: M06.4 Inflammatory polyarthropathy (principal); Z79.899 Other long term (current) drug therapy
CPT/HCPCS: 36415; 80053; 85025

== ENCOUNTER → 2023-03-03 | Outpatient (CLI) | payer BC, SELFPAY ==
[2023-03-03 18:19] LABS: T4 Free Direct 0.94 ng/dL (0.76-1.46); Thyroid Stim Hormone (TSH) 0.69 uIU/mL (0.358-3.74)
[2023-03-06 09:08] LABS: Anti-Thyroglobulin AB < 1.0 IU/mL (0.0-0.9); Thyroglobulin, Serum Qt. 174.8 ng/mL (1.5-38.5); Thyroid Peroxidase AB 11 IU/mL (0-34); Thyroid Stim Immunoglob <0.10 IU/L (0.00-0.55)
== END | disposition home or self-care (01) ==
LOC: MFPLAB 15:44
PROVIDERS: PCP Family Medicine; Visit Provider Family Medicine
DX: E01.0 Iodine-deficiency related diffuse (endemic) goiter (principal)
CPT/HCPCS: 36415; 84432; 84439; 84443; 84445; 86376; 86800

== ENCOUNTER → 2023-03-10 | Outpatient (CLI) | payer BC, SELFPAY ==
--- NOTE | 2023-03-10 09:49 | US_ITS ---
STUDY: THYROID ULTRASOUND REASON FOR EXAM: Female, 47 years old. Palpably enlarged thyroid TECHNIQUE: Ultrasound evaluation of the thyroid was performed with real-time and static hampton-scale imaging. COMPARISON: None. FINDINGS: RIGHT LOBE: The right lobe of the thyroid gland measures 5.4 x 2.5 x 2.5 cm. There is a homogeneous echotexture. There are multiple nodules. There is a 2.5 cm solid and cystic nodule, there is a 1.1 cm solid and cystic nodule and a 1.5 cm hypoechoic solid nodule. The 2.6 cm solid and cystic nodule is categorized as follows TI-RADS points: 3. TI-RADS category: TR3. This nodule is mildly suspicious. Recommend FNA evaluation. The smaller solid and cystic 1.1 nodule does not need specific follow-up. The solid 1.5 cm hypoechoic nodule is characterized as follows. This nodule is solid or almost completely solid, hypoechoic, [id number], smoothly marginated and contains no echogenic foci. TI-RADS points: 4. TI-RADS category: TR4. This nodule is moderately suspicious. Recommend follow-up thyroid ultrasounds at 1, 2, 3 and 5 years. LEFT LOBE: The left lobe of the thyroid gland measures 5.5 x 2.4 x 2.4 cm. There is a homogeneous echotexture. Barrel Charrer notes 3 separate solid and cystic nodules largest measures 2.5 cm. The 2.5 cm nodule is categorized as follows: This nodule is mixed cystic and solid, hypoechoic, [id number], smoothly marginated and contains no echogenic foci. TI-RADS points: 3. TI-RADS category: TR3. This nodule is mildly suspicious. Recommend FNA evaluation. The smaller nodules are categorizes TR 4 and need follow-up at one, 2, 3, and 5 years. ISTHMUS: The isthmus measures 1.03 cm. There are multiple solid and cystic nodules in the isthmus as well. Largest measures 1.9 cm. Nodules are mixed cystic and solid, hypoechoic, [id number], smoothly marginated and contains no echogenic foci. TI-RADS points: 3. TI-RADS category: TR3. Nodules are mildly suspicious. Recommend follow-up thyroid ultrasounds at 1, 3 and 5 years. The regional lymph nodes are normal. US/Thyroid IMPRESSION: Enlarged thyroid gland with multiple bilateral nodules which are categorized as above. Follow-up also listed above with the large 2.6 cm nodule in the right lobe needing further evaluation with FNA. Other nodules to be followed as described above Electronically Signed: Elias Sharma MD at 15:29 EDT ,
--- NOTE | 2023-03-10 10:00 | RAD_ITS ---
STUDY: X-RAY - ESOPHAGUS (BARIUM SWALLOW) WITH FLUOROSCOPY REASON FOR EXAM: Female, 47 years old. Globus sensation, difficulty swallowing TECHNIQUE: 14 view(s) of the esophagus were obtained following swallowing of barium. FLUOROSCOPY TIME (if supplied): (34 seconds) minutes/seconds COMPARISON: None. FINDINGS: There is no demonstrated esophageal foreign body. There is no demonstrated stricture or mucosal abnormality. Normal gastroesophageal junction, without a demonstrated hiatal hernia. The patient ingested a 12 mm tablet of barium without any difficulty. Normal visualized aortic arch and descending thoracic aorta. Normal visualized pulmonary parenchyma. Normal visualized osseous structures of the thorax. RAD/Esophagus Dual Contrast IMPRESSION: Normal plain film x-ray examination (barium swallow) of the esophagus. Electronically Signed: Andi Castelan MD at 12:58 EDT ,
== END | disposition home or self-care (01) ==
LOC: US 09:46
PROVIDERS: PCP Family Medicine; Referring Provider Family Medicine; Visit Provider Family Medicine
DX: E01.0 Iodine-deficiency related diffuse (endemic) goiter (principal)
CPT/HCPCS: 74221; 76536

== ENCOUNTER 2023-03-24 14:33 | Outpatient (CLI) | payer BC, SELFPAY ==
--- OUTSIDE RECORDS SUMMARY | 2023-03-24 15:17 | XMS RPT_ITS | CCD ---
Author Name Unknown Address [address] [place] [address] Organization [facility] Care Team Providers Care Confidential Investigator Name Role Phone Christianne Rosario Primary Care Provider TONY ESCAMILLA Attending Unavailable CHRISTIANNE ROSARIO Primary Care Unavailable Allergies Allergy Classification Reported Allergen(s) Allergy Type Date of Onset Reaction(s) Facility (2 sources) Shellfish; Translations: [SHELLFISH DERIVED] Drug Allergy 03-16-2023 Swelling, Shortness of Breath [facility] (2 sources) Iodinated Contrast Media; Translations: [IODINATED CONTRAST MEDIA] Drug Allergy 03-16-2023 Rash, Other: See Comments [facility] Medications Completed/Discontinued Medications Medication Drug Class(es) Dates Sig (Normalized) Sig (Original) [id number] 200 actuat albuterol 0.09 mg/actuat metered dose inhaler (1 source) beta2-Adrenergic Agonist take 8 puff(s) by inhalation every six hours as needed for wheezing albuterol HFA (PROVENTIL HFA) inhaler Inhale 8 Puffs as instructed every 6 hours as needed for wheezing/shortness of breath. 0 Active Problems Problem Classification Problem Date Documented Da te Episodic/Chronic Thyroid disorders (1 source) Multinodular goiter; Translations: [Nontoxic multinodular goiter] 03-17-2023 Chronic Results Test Name Value Interpretation Reference Range Facil ity Vital Signs Date Time Vital Sign Value Performing Clinician Faci lity 03-17-2023 09:12-0400 Body height 170.2 cm Tony Escamilla MD Work Phone: [facility] 03-17-2023 09:12-040 Body temperature 97.7 [degF] Tony Escamilla MD Work Phone: [facility] 03-17-2023 09:12-040 Body weight 127.46 kg Tony Escamilla MD Work Phone: [facility] 03-17-2023 09:12040 Diastolic blood pressure 78 mm[Hg] Tony Escamilla MD Work Phone: [facility] 03-17-2023 09:120400 Heart rate 82 /min Tony Escamilla MD Work Phone: [facility] 03-17-2023 09:12040 SaO2% (BldA) [Mass fraction] 97 % Tony Escamilla MD Work Phone: [facility] 03-17-2023 09:12040 Systolic blood pressure 126 mm[Hg] Tony Escamilla MD Work Phone: [facility] Encounters Encounter Date Encounter Type Care Provider Facility Start: 03-17-2023 End: 03-17-2023 ambulatory TONY ESCAMILLA Facility:[facility] Start: 03-17-2023 End: 03-17-2023 Patient encounter procedure Tony Escamilla MD Work Phone: General Surgery Plan of Treatment Date Care Activity Detail Author Start: 10-18-2031 Urine microalbumin profile DTa P,Tdap,Td Vaccine (3 - Td or Tdap) [facility] Start: 05-17-2022 Depression Assessment Depression Ass essment [facility] Start: 2021 Cologuard (FIT-DNA) Cologuard (FIT-D NA) [facility] Start: 2021 Colonoscopy Colonoscopy [facility] Start: 2021 Colorectal Cancer Screening Colorectal Cancer Screening [facility] Start: [address] Colonography [facility] Start: 2021 Diabetes Screening Diabetes Screenin g [facility] Start: 2021 Fecal Occult Blood Fecal Occult Bloo d [facility] Start: 2021 Lipid 1996 panel - S debbie or Plasma Lipid Screening [facility] Start: 2021 Sigmoidoscopy Sigmoidoscopy [facility] Start: 2016 Mammography Mammogram Screening [facility] Start: 2006 HPV Testing HPV Testing [facility] Start: 1997 Pap Testing Pap Testing [facility] Start: 1994 Hepatitis C Screening Hepatitis C Sc marc [facility] Start: 1994 HIV Screening HIV Screening [facility] Start: 1976 Hepatitis B Vaccine (1 of 3 - 3-dose series) Hepatitis B Vaccine (1 of 3 - 3-dose series) [facility] Payers Date Payer Category Payer Unknown [employer] PPO OOS [id number] 2022-Present [phone] [address] [place] [address] PPO [id number] 2022 Unknown [id number] Social History Date Type Detail Facility [facility]: [facility]23 [facility] End: 05-17-2017 History of tobacco use Current smoker [facility] End: 05-17-2017 History of tobacco use Cigarette Smoker [facility] Start: 03-17-2023 Tobacco use and exposure Smoke less tobacco non-user [facility] Start: 03-17-2023 Alcohol intake Current drinke r of alcohol (finding) [facility] Start: 03-17-2023 History of Social function [facility] Start: 03-17-2023 Tobacco use panel [facility] National Score (1-10 0), lower number is lower risk 80 [facility] Start: 03-17-2023 Alcohol Comment two times a year [facility] Start: 1975 Sex Assigned At Not on file [facility] Progress note 03-19-2023 Note Date & Type Note Facility 03-19-2023 Note HNO ID: [id number] Author: Tony Escamilla MD Service: ? Author Type: Physician Type: Progress Notes Filed: 03/19/2023 1:33 PM Note Text: HISTORY AND PHYSICAL Andie Mejia 1975 REFERRING PHYSICIAN: MD Tasia Houser [address] [facility] [id number] CHIEF COMPLAINT: Consult (Thyroid nodule) HPI: The patient is a 47 year old female with a complaint of a bilateral thyroid nodule. This thyroid nodule was found on Ultrasound by [facility]. The patient denies pain, denies difficulty swallowing, deniesrapid enlargement of the neck, deniesdysphagia, denies a change in the voice, denies hot or cold intolerence. The patient has not a prior history of neck radiation treatment. Impression showed there to be a 2.6 cm nodule on the right lobe which they recommended a fine-needle aspiration be performed. There were several other nodules bilaterally but this was the only 1 that was recommended for a fine-needle aspiration The patient has thyroid function testing. T4 - 0.94, THS - 0.69, thyroid peroxidase antibody 11, anti-TG less than 1, thyroglobulin quantitative elevated at 174.8 The patient is being seen by me today at the request of Dr. Ivan for my opinion and advice regarding Multinodular goiter (primary encounter diagnosis). PAST MEDICAL HISTORY Diagnosis Date Blood clotting disorder (HCC) History of cancer melanoma, dorment brain tumor Pulmonary embolism (HCC) Systemic lupus erythematosus (HCC) PAST SURGICAL HISTORY Procedure Laterality Date APPENDECTOMY HYSTEROSCOPY ENDOMETRIAL ABLATION L'SCOPE CHOLECYSTECTOMY LIGATE FALLOPIAN TUBE MELANOMA OF SKIN EXCISION SYN RPT bilateral arms Current Outpatient Medications Medication Sig Dispense Refill nystatin (MYCOSTATIN) 100,000 unit/mL suspension Take 200,000 Units by mouth three times a day at 6 am, 12 pm, and 9 pm. topiramate (TOPAMAX) 100 mg tablet Take 100 mg by mouth once daily. lithium carbonate (ESKALITH) 300 mg capsule Take 300 mg by mouth two times a day with meals. cholecalciferol (VITAMIN D-3) 50 mcg (2,000 unit) tablet Take 2,000 Units by mouth two times a week. propranolol (INDERAL) 60 mg tablet Take 120 mg by mouth daily at bedtime. topiramate (TOPAMAX) 25 mg tablet Take 25 mg by mouth once daily. SUMAtriptan (IMITREX) 25 mg tablet Take 25 mg by mouth as needed for migraine headache (see administration instructions). May repeat dose after 2 hours if needed. Maximum daily dose is 200 mg per day. albuterol HFA (PROVENTIL HFA) inhaler Inhale 8 Puffs as instructed every 6 hours as needed for wheezing/shortness of breath. hydrOXYchloroQUINE 300 mg tablet Take 200 mg by mouth two times a day. No current facility-administered medications for this visit. ALLERGIES: Iodinated Contrast Media and Shellfish Derived PERSONAL HISTORY: Social History Tobacco Use Smoking status: Former Types: Cigarettes Quit date: 2018 Years since quittin.8 Smokeless tobacco: Never Vaping Use Vaping Use: Never used Substance Use Topics Alcohol use: Yes Comment: two times a year Drug use: Never FAMILY HISTORY: FAMILY HISTORY Problem Relation Age of Onset Obesity Mother Mental illness Father Alcohol abuse Father Cancer Father Diabetes Father Hypertension Father Alcohol abuse Brother Cancer Maternal Grandmother Alcohol abuse Maternal Grandfather Mental illness Paternal Grandmother Alcohol abuse Paternal Grandfather Mental illness Daughter Mental illness Son REVIEW OF SYMPTOMS: The review of systems data was entered by the nurse and reviewed by me Nursing Notes: Kathryn Ribeiro LPN 03/17/2023 9:13 AM Signed REVIEW OF SYSTEMS: General: The patient NOTES fatigue, denies weight loss, denies weight gain, denies feeling hot, and denies feelings of cold. Eyes: The patient denies glaucoma, denies eye injury/surgery, wears glasses or contacts. Ear/Nose/Throat: The patient NOTES allergies, denies hayfever, denies ear infections, and denies bloody noses. Cardiovascular: The patient NOTES chest pain, denies heart disease, denies high blood pressure,denies cardiac stent, denies prior heart attack, NOTES irregular heart beat, denies high cholesterol, denies poor circulation, denies heart failure, other cardiac issues, denies claudication, denies cold feet, denies peripheral arterial stent. Respiratory: The patient denies tuberculosis, NOTES pneumonia, denies frequent cough, NOTES pulmonary embolism, NOTES shortness of breath, and denies coughing up blood. Gastrointestinal: The patient NOTES difficulty swallowing, denies acid reflux, denies ulcers, denies vomiting, denies jaundice/hepatitis, NOTES gallbladder problems, denies black or tarry stools, denies hemorrhoids, denies bleeding from rectum, denies diverticulitis, denies constipation, denies diarrhea, denies loss of stool control, and denies hernias. Kidney/Bladder: The patient denies kidney s (more content not included)... [facility] History of Present illness Narrative 03-19-2023 Tony Escamilla MD - 03/19/2023 1:27 PM EDT Note Date & Type Note Facility 03-19-2023 History of Presen t illness Narrative HISTORY AND PHYSICAL Andie L Roberto 1975 REFERRING PHYSICIAN: MD Tasia Houser E Yo [address] [facility] [id number] CHIEF COMPLAINT: Consult (Thyroid nodule) HPI: The patient is a 47 year old female with a complaint of a bilateral thyroid nodule. This thyroid nodule was found on Ultrasound by [facility]. The patient denies pain, denies difficulty swallowing, deniesrapid enlargement of the neck, deniesdysphagia, denies a change in the voice, denies hot or cold intolerence. The patient has not a prior history of neck radiation treatment. Impression showed there to be a 2.6 cm nodule on the right lobe which they recommended a fine-needle aspiration be performed. There were several other nodules bilaterally but this was the only 1 that was recommended for a fine-needle aspiration The patient has thyroid function testing. T4 - 0.94, THS - 0.69, thyroid peroxidase antibody 11, anti-TG less than 1, thyroglobulin quantitative elevated at 174.8 The patient is being seen by me today at the request of Dr. Ivan for my opinion and advice regarding Multinodular goiter (primary encounter diagnosis). PAST MEDICAL HISTORY Diagnosis Date Blood clotting disorder (HCC) History of cancer melanoma, dorment brain tumor Pulmonary embolism (HCC) Systemic lupus erythematosus (HCC) PAST SURGICAL HISTORY Procedure Laterality Date APPENDECTOMY HYSTEROSCOPY ENDOMETRIAL ABLATION L'SCOPE CHOLECYSTECTOMY LIGATE FALLOPIAN TUBE MELANOMA OF SKIN EXCISION SYN RPT bilateral arms Current Outpatient Medications Medication Sig Dispense Refill nystatin (MYCOSTATIN) 100,000 unit/mL suspension Take 200,000 Units by mouth three times a day at 6 am, 12 pm, and 9 pm. topiramate (TOPAMAX) 100 mg tablet Take 100 mg by mouth once daily. lithium carbonate (ESKALITH) 300 mg capsule Take 300 mg by mouth two times a day with meals. cholecalciferol (VITAMIN D-3) 50 mcg (2,000 unit) tablet Take 2,000 Units by mouth two times a week. propranolol (INDERAL) 60 mg tablet Take 120 mg by mouth daily at bedtime. topiramate (TOPAMAX) 25 mg tablet Take 25 mg by mouth once daily. SUMAtriptan (IMITREX) 25 mg tablet Take 25 mg by mouth as needed for migraine headache (see administration instructions). May repeat dose after 2 hours if needed. Maximum daily dose is 200 mg per day. albuterol HFA (PROVENTIL HFA) inhaler Inhale 8 Puffs as instructed every 6 hours as needed for wheezing/shortness of breath. hydrOXYchloroQUINE 300 mg tablet Take 200 mg by mouth two times a day. No current facility-administered medications for this visit. ALLERGIES: Iodinated Contrast Media and Shellfish Derived PERSONAL HISTORY: Social History Tobacco Use Smoking status: Former Types: Cigarettes Quit date: 2017 Years since quittin.8 Smokeless tobacco: Never Vaping Use Vaping Use: Never used Substance Use Topics Alcohol use: Yes Comment: two times a year Drug use: Never FAMILY HISTORY: FAMILY HISTORY Problem Relation Age of Onset Obesity Mother Mental illness Father Alcohol abuse Father Cancer Father Diabetes Father Hypertension Father Alcohol abuse Brother Cancer Maternal Grandmother Alcohol abuse Maternal Grandfather Mental illness Paternal Grandmother Alcohol abuse Paternal Grandfather Mental illness Daughter Mental illness Son REVIEW OF SYMPTOMS: The review of systems data was entered by the nurse and reviewed by ct Nursing Notes: Kathryn Ribeiro LPN 03/17/2023 9:13 AM Signed REVIEW OF SYSTEMS: General: The patient NOTES fatigue, denies weight loss, denies weight gain, denies feeling hot, and denies feelings of cold. Eyes: The patient denies glaucoma, denies eye injury/surgery, wears glasses or contacts. Ear/Nose/Throat: The patient NOTES allergies, denies hayfever, denies ear infections, and denies bloody noses. Cardiovascular: The patient NOTES chest pain, denies heart disease, denies high blood pressure,denies cardiac stent, denies prior heart attack, NOTES irregular heart beat, denies high cholesterol, denies poor circulation, denies heart failure, other cardiac issues, denies claudication, denies cold feet, denies peripheral arterial stent. Respiratory: The patient denies tuberculosis, NOTES pneumonia, denies frequent cough, NOTES pulmonary embolism, NOTES shortness of breath, and denies coughing up blood. Gastrointestinal: The patient NOTES difficulty swallowing, denies acid reflux, denies ulcers, denies vomiting, denies jaundice/hepatitis, NOTES gallbladder problems, denies black or tarry stools, denies hemorrhoids, denies bleeding from rectum, denies diverticulitis, denies constipation, denies diarrhea, denies loss of stool control, and denies hernias. Kidney/Bladder: The patient denies kidney stones, denies urine infections, and denies bloody urine. Skin: The patient NOTES a history of skin cancer, NOTES bleeding/changing moles, and denies a history of skin rash. Neurologic: The patient denies a history of epilepsy/convulsions, NOTES headaches, NOTES head/spinal injuries, and denies stroke/TIA. Psychiatric: The patient NOTES psychiatric medications, denies depression, and denies voices, denies substance abuse. Endocrine: The patient NOTES thyroid disorders, NOTES diabetes, and NOTES hormonal problems. Hematologic: The patient NOTES a history of bruising, NOTES bleeding, and NOTES anemia, denies blood clots. Infections: The patient denies a history of measles and mumps, denies rheumatic fever, and denies sexually transmitted diseases. Musculoskeletal: The patient denies back pain/injury, denies back problems, denies sciatica, NOTES knee/foot trouble, NOTES arthritis, or denies gout. When was patient's last Mammogram screening? 2018 Last Colonoscopy: NO PRIOR Kathryn Ribeiro LPN PHYSICAL EXAMINATION: General: The patient is 47 year old female, well nourished, well hydrated in no acute distress. The patient is oriented to time, place, and person. VITALS: Blood pressure 126/78, pulse 82, temperature 36.5 C (97.7 F), height 170.2 cm (5' 7 ), weight 127.5 kg (281 lb), SpO2 97 %. Body mass index is 44.01 kg/m . HEENT: Normal cephalic, ataumatic, pupils are equally round, sclera are anicteric, mucous membranes are moist, oropharynx is clear. Neck has no masses, asymmetry or lymphadenopathy. Thyroid exam hard palpable nodules identified. Respiratory: Clear to auscultation and percussion. Normal respiratory excursion and pattern. Cardiac: Examination is regular rate and rhythm. Abdominal exam: Soft, nontender, with no palpable masses. No hepatosplenomegaly. No palpable hernias. Rectal exam: exam deferred Extremities: no clubbing, cyanosis or edema. No adenopathy. Other: LABORATORY VALUES: As Noted RADIOLOGIC STUDIES: As Noted Assessment IMPRESSION: NODULE - bilateral THYROID PLAN: I plan to perform an FNAC of the right Thyroid. Diagnoses: (E04.2) Multinodular goiter (primary encounter diagnosis) A letter was sent to Dr. Ivan indicating the above finding for this patient. Return to Clinic: The patient is instructed to follow-up with me 1 week post operatively. Tony Escamilla III, MD documented in this encounter [facility] Nurse Note 03-17-2023 Quintin KathrynLOAN de luna - 03/17/2023 9:06 AM EDT Note Date & Type Note Facility 03-17-2023 Nurse Note REVIEW OF SYSTEMS: General: The patient NOTES fatigue, denies weight loss, denies weight gain, denies feeling hot, and denies feelings of cold. Eyes: The patient denies glaucoma, denies eye injury/surgery, wears glasses or contacts. Ear/Nose/Throat: The patient NOTES allergies, denies hayfever, denies ear infections, and denies bloody noses. Cardiovascular: The patient NOTES chest pain, denies heart disease, denies high blood pressure,denies cardiac stent, denies prior heart attack, NOTES irregular heart beat, denies high cholesterol, denies poor circulation, denies heart failure, other cardiac issues, denies claudication, denies cold feet, denies peripheral arterial stent. Respiratory: The patient denies tuberculosis, NOTES pneumonia, denies frequent cough, NOTES pulmonary embolism, NOTES shortness of breath, and denies coughing up blood. Gastrointestinal: The patient NOTES difficulty swallowing, denies acid reflux, denies ulcers, denies vomiting, denies jaundice/hepatitis, NOTES gallbladder problems, denies black or tarry stools, denies hemorrhoids, denies bleeding from rectum, denies diverticulitis, denies constipation, denies diarrhea, denies loss of stool control, and denies hernias. Kidney/Bladder: The patient denies kidney stones, denies urine infections, and denies bloody urine. Skin: The patient NOTES a history of skin cancer, NOTES bleeding/changing moles, and denies a history of skin rash. Neurologic: The patient denies a history of epilepsy/convulsions, NOTES headaches, NOTES head/spinal injuries, and denies stroke/TIA. Psychiatric: The patient NOTES psychiatric medications, denies depression, and denies voices, denies substance abuse. Endocrine: The patient NOTES thyroid disorders, NOTES diabetes, and NOTES hormonal problems. Hematologic: The patient NOTES a history of bruising, NOTES bleeding, and NOTES anemia, denies blood clots. Infections: The patient denies a history of measles and mumps, denies rheumatic fever, and denies sexually transmitted diseases. Musculoskeletal: The patient denies back pain/injury, denies back problems, denies sciatica, NOTES knee/foot trouble, NOTES arthritis, or denies gout. When was patient's last Mammogram screening? 2018 Last Colonoscopy: NO PRIOR Kathryn Ribeiro LPN documented in this encounter [facility] Evaluation note Note Date & Type Note Facility documented in this encounter [facility] Summary Purpose Family History No Family History Records Found Advance Directives No Advanced Directives Records Found Additional Source Comments Source Comments (unrecognize d section and content) In the event this informatio n is protected by the Federal Confidentiality of Alcohol and Drug Abuse Patient Records regulations: The Federal rules restrict any use of the information to criminally investigate or prosecute any alcohol or drug abuse patient.[facility] Reason for Visit (unrecogniz ed section and content) Care Teams (unrecognized sec tion and content) INFORMATION SOURCE (unrecogn ized section and content) FOR RECORDS PERTAINING TO PATIENTS WHO ARE OR HAVE BEEN ENROLLED IN A CHEMICAL DEPENDENCY/SUBSTANCEABUSE PROGRAM, SOME INFORMATION MAY BE OMITTED. This clinical summary was aggregated from multiple sources. Caution should be exercised in using it in the provision of clinical care. This summary normalizes information from multiple sources, and as a consequence, information in this document may materially change the coding, format and clinical context of patient data. In addition, data may be omitted in some cases. CLINICAL DECISIONS SHOULD BE BASED ON THE PRIMARY CLINICAL RECORDS. [facility] [employer] [facility]. provides no warranty or guarantee of the accuracy or completeness of information in this document.
[2023-03-24 17:59] LABS: Absolute Neutrophil Count 8.2 X10^3/uL (2.0-7.7); Basophil# 0.08 X10^3/uL; Basophil% 0.7 % (0-1); Eosinophils% 1.7 % (0-5); Hematocrit 45.5 % (37-47); Hemoglobin 13.8 g/dL (12.0-15.0); Lymphocyte % 21.8 % (19-41); Mean Corp Hgb Conc 30.3 g/dL (32-36); Mean Corpuscular Hgb 27.8 pg (27.0-32.0); Mean Corpuscular Volume 91.7 fL (81-99); Mean Platelet Vol. 9.8 fl (6.2-12.0); Monocyte# 0.77 X10^3/uL; Monocyte% 6.5 % (0-10); NRBC Flagged by Analyzer 0 % (0-5); Neutrophil # 8.21 X10^3/uL (2.7-7.7); Neutrophil % 68.9 % (47-70); Platelet Count 317 K/mm3 (150-450); RBC Distribution Width CV 12.6 % (11.6-14.6); RBC Distribution Width SD 42.5 fl (35.1-43.9); Red Blood Count 4.96 M/mm3 (4.2-5.4); White Blood Count 11.9 K/mm3 (4.4-11.0)
[2023-03-24 18:26] LABS: ALB/GLOB Ratio 0.9 RATIO (0.9-2.4); AST(SGOT) 16 U/L (15-37); Alanine Aminotransfer ALT/SGPT 24 U/L (13-56); Albumin, Serum 3.2 g/dL (3.2-5.0); Alkaline Phosphatase 75 U/L (45-117); Anion Gap 6 (5-15); BUN 15 mg/dL (7-18); BUN/Creat Ratio 15.5 RATIO (10-20); Calcium,Total 8.7 mg/dL (8.5-10.1); Chloride 111 mmol/L (98-107); Creatinine, Serum 0.97 mg/dL (0.55-1.02); EST Glomerular Filtration Rate 66 mL/min (>60); Est Glom Filt Rate - Afr Amer 80 mL/min (>60); Globulin 3.7 g/dL (2.2-4.2); Glucose 105 mg/dL (74-106); Potassium 4.5 mmol/L (3.5-5.1); Protein, Total 6.9 g/dL (6.4-8.2); Sodium Level 141 mmol/L (136-145)
== END 2023-03-24 23:59 | disposition home or self-care (01) ==
PROVIDERS: PCP Family Medicine; Visit Provider Internal Medicine Rheumatology
DX: M06.4 Inflammatory polyarthropathy (principal); M79.7 Fibromyalgia; Z79.899 Other long term (current) drug therapy
CPT/HCPCS: 36415; 80053; 85025

== ENCOUNTER → 2023-05-25 | Outpatient (CLI) | payer BC, SELFPAY ==
--- OUTSIDE RECORDS SUMMARY | 2023-05-25 08:39 | XMS RPT_ITS | CCD ---
Author Name Unknown Address [address] [place] [address] Organization [facility] Care Team Providers Care Obstetrician Name Role Phone Christianne Rosario Primary Care Provider Keri Pollard MD Primary Care Provider KERI POLLARD Primary Care Unavailable TONY ESCAMILLA Attending Unavailable TONY ESCAMILLA Attending Unavailable KERI POLLARD Primary Care Unavailable TONY ESCAMILLA Attending Unavailable CHRISTIANNE ROSARIO Primary Care Unavailable Allergies Allergy Classification Reported Allergen(s) Allergy Type Date of Onset Reaction(s) Facility (3 sources) Shellfish; Translations: [SHELLFISH DERIVED] Drug Allergy 03-16-2023 Swelling, Shortness of Breath [facility] (3 sources) Iodinated Contrast Media; Translations: [IODINATED CONTRAST MEDIA] Drug Allergy 03-16-2023 Rash, Other: See Comments [facility] Medications Completed/Discontinued Medications Medication Drug Class(es) Dates Sig (Normalized) Sig (Original) [id number] 200 actuat albuterol 0.09 mg/actuat metered dose inhaler (2 sources) beta2-Adrenergic Agonist take 8 puff(s) by inhalation every six hours as needed for wheezing albuterol HFA (PROVENTIL HFA) inhaler Inhale 8 Puffs as instructed every 6 hours as needed for wheezing/shortness of breath. 0 Active Problems Problem Classification Problem Date Documented Da te Episodic/Chronic Thyroid disorders (2 sources) Multinodular goiter; Translations: [Nontoxic multinodular goiter] 03-17-2023 Chronic Results Test Name Value Interpretation Reference Range Facil ity Vital Signs Date Time Vital Sign Value Performing Clinician Faci lity 03-17-2023 09:12-0400 Body height 170.2 cm Tony Escamilla MD Work Phone: [facility] 03-17-2023 09:120400 Body temperature 97.7 [degF] Tony Escamilla MD Work Phone: [facility] 03-17-2023 09:120400 Body weight 127.46 kg Tony Escamilla MD Work Phone: [facility] 03-17-2023 09:120400 Diastolic blood pressure 78 mm[Hg] Tony Escamilla MD Work Phone: [facility] 03-17-2023 09:120400 Heart rate 82 /min Tony Escamilla MD Work Phone: [facility] 03-17-2023 09:120400 SaO2% (BldA) [Mass fraction] 97 % Tony Escamilla MD Work Phone: [facility] 03-17-2023 09:120400 Systolic blood pressure 126 mm[Hg] Tony Escamilla MD Work Phone: [facility] Encounters Encounter Date Encounter Type Care Provider Facility Start: 04-05-2023 End: 04-05-2023 ambulatory KERI POLLARD Facility:[facility] Start: 03-26-2023 End: 03-26-2023 ambulatory TONY ESCAMILLA Facility:[facility] Start: 03-26-2023 End: 03-26-2023 Patient encounter procedure Tony Escamilla MD Work Phone: General Surgery Procedures Date Procedure Procedure Detail Performing Clinician Start: 03-26-2023 US THYROID BIOPSY RI GHT (POC) SURG USE ONLY Tony Escamilla MD Work Phone: Plan of Treatment Date Care Activity Detail Author Start: 10-18-2031 Urine microalbumin profile DTa P,Tdap,Td Vaccine (3 - Td or Tdap) [facility] Start: 05-17-2022 Depression Assessment Depression Ass essment [facility] Start: 2021 Cologuard (FIT-DNA) Cologuard (FIT-D NA) [facility] Start: 2021 Colonoscopy Colonoscopy [facility] Start: 2021 Colorectal Cancer Screening Colorectal Cancer Screening [facility] Start: [address] Colonography [facility] Start: 2021 Diabetes Screening Diabetes Screenin g [facility] Start: 2021 Fecal Occult Blood Fecal Occult Bloo d [facility] Start: 2021 Lipid 1996 panel - S debbie or Plasma Lipid Screening [facility] Start: 2021 Sigmoidoscopy Sigmoidoscopy [facility] Start: 2016 Mammography Mammogram Screening [facility] Start: 2006 HPV Testing HPV Testing [facility] Start: 1997 Pap Testing Pap Testing [facility] Start: 1994 Hepatitis C Screening Hepatitis C Sc reening [facility] Start: 1994 HIV Screening HIV Screening [facility] Start: 1976 Hepatitis B Vaccine (1 of 3 - 3-dose series) Hepatitis B Vaccine (1 of 3 - 3-dose series) [facility] [place] [facility] Payers Date Payer Category Payer Unknown [employer] PPO OOS [id number] 2022-Present [phone] [id number] [place] [address] PPO [id number] 2022 Unknown [id number] Social History Date Type Detail Facility Start: 03-17-2023 Tobacco smoking stat us NHIS Ex-smoker [facility] End: 05-17-2017 History of tobacco use Current smoker [facility] End: 05-17-2017 History of tobacco use Cigarette Smoker [facility] Start: 03-17-2023 Tobacco use and exposure Smoke less tobacco non-user [facility] Start: 03-17-2023 Alcohol intake Current drinke r of alcohol (finding) [facility] Start: 03-17-2023 History of Social function [facility] Start: 03-17-2023 Tobacco use panel [facility] National Score (1-10 0), lower number is lower risk 80 [facility] Start: 03-17-2023 Alcohol Comment two times a year [facility] Start: 1975 Sex Assigned At Not on file [facility] Progress note 11-21-2023 Note Date & Type Note Facility 04-06-2023 Note HNO ID: [id number] Author: Tony Escamilla MD Service: ? Author Type: Physician Type: Progress Notes Filed: 04/12/2023 1:11 PM Note Text: Subjective: Patient is status post a ultrasound-guided fine-needle aspiration of the right thyroid gland completed on 03/25/2023. This came back as benign with abundant colloid cystic contents and rare band follicular cells. The size of the nodule was 1.9 cm in greatest diameter. Objective:Blood pressure 150/82, pulse 86, temperature 36.1 ?C (96.9 ?F), height 170.2 cm (5' 7 ), weight 127.5 kg (281 lb), SpO2 98 %. Neck is supple no hard palpable nodules are identified Assessment:Multinodular goiter (primary encounter diagnosis) Plan: Patient will need to have yearly thyroid ultrasounds that the nodules grow by more than 20% or new nodules grow that meet criteria for biopsies and repeat fine-needle aspirations will be performed. [facility] Progress note 03-26-2023 Note Date & Type Note Facility 03-26-2023 Note HNO ID: [id number] Author: Tony Escamilla MD Service: ? Author Type: Physician Type: Progress Notes Filed: 03/26/2023 10:34 AM Note Text: Preoperative diagnosis: Multinodular goiter Postoperative diagnosis: The same Procedure: Ultrasound-guided fine-needle aspiration of right thyroid nodule Surgeon: Francine Procedure: Ultrasound of the right thyroid nodule revealed a 2.6 cm solid and cystic nodule. This was located in the lower pole. Skin was prepped with alcohol. 1% lidocaine plain was injected. Under ultrasound guidance 3 passes with a 22-gauge needle were performed. I aspirated out some of the cystic contents and sent that for cytologic spin. I also did smears on glass slides and as well as sent in Afirma test off. Sterile dressings were applied and the patient tolerated the procedure well. [facility] Instructions 03-26-2023 Patient Instructions Note Date & Type Note Facility 03-26-2023 Instructions Kathryn Ribeiro LPN - 03/26/2023 9:15 AM EST Instructions After THYROID FINE NEEDLE ASPIRATION Please do not take aspirin or other blood thinners for the next few days. If you have bleeding from the needle site, hold pressure with a clean gauze. If the bleeding continues, contact our office immediately. I recommend taking Advil or Tylenol for the discomfort. An ice pack may improve your discomfort to the area. Contact our office immediately if you have any questions or concerns @ [phone]. Please make an appointment to follow up in one week with your physician and thank you for choosing the [facility] [place]. documented in this encounter [facility] Nurse Note 03-26-2023 Kathryn Ribeiro LPN - 03/26/2023 9:07 AM EST Note Date & Type Note Facility 03-26-2023 Nurse Note UNIVERSAL PROTOCOL / SAFETY CHECKLIST Procedure to be Performed: Ultrasound Guided Fine Needle Aspiration Thyroid right Sign In: A Moment of CARE was completed. Personnel directly involved with the procedure wore the appropriate PPE (Personal Protective Equipment). No special equipment needed. Patient/Surrogate Stated/Verified: PATIENT VERIFIED(optional for EMERGENT procedures): Patient name, Date of , Relevant allergies, and The intended procedure Time Out Communication: Intended patient and procedure match the source documents. Consent documented and matches the intended procedure. Relevant labs, photos, and/or imaging studies have been reviewed. Correct side/site marked and visible. Medications required for procedure verified. No fire risk assessment and interventions applicable. No implant(s) inserted. Sign Out: SIGN OUT (optional for EMERGENT procedures): All specimen containers correctly labeled. No instruments, equipment or retained foreign bodies applicable. Post-procedure follow-up management communicated and Plan of Care Visit completed when applicable. Kathryn Ribeiro LPN documented in this encounter [facility] History of Present illness Narrative 03-26-2023 Tony Escamilla MD - 03/26/2023 9:00 AM EST Note Date & Type Note Facility 03-26-2023 History of Presen t illness Narrative Preoperative diagnosis: Multinodular goiter Postoperative diagnosis: The same Procedure: Ultrasound-guided fine-needle aspiration of right thyroid nodule Surgeon: Francine Procedure: Ultrasound of the right thyroid nodule revealed a 2.6 cm solid and cystic nodule. This was located in the lower pole. Skin was prepped with alcohol. 1% lidocaine plain was injected. Under ultrasound guidance 3 passes with a 22-gauge needle were performed. I aspirated out some of the cystic contents and sent that for cytologic spin. I also did smears on glass slides and as well as sent in Afirma test off. Sterile dressings were applied and the patient tolerated the procedure well. documented in this encounter [facility] Progress note 03-19-2023 Note Date & Type Note Facility 03-19-2023 Note HNO ID: [id number] Author: Tony Escamilla MD Service: ? Author Type: Physician Type: Progress Notes Filed: 03/19/2023 1:33 PM Note Text: HISTORY AND PHYSICAL Andie Mejia 1975 REFERRING PHYSICIAN: Keri Pollard MD [facility] [address] [facility] [address] [facility] [address] CHIEF COMPLAINT: Consult (Thyroid nodule) HPI: The patient is a 47 year old female with a complaint of a bilateral thyroid nodule. This thyroid nodule was found on Ultrasound by [facility]. The patient denies pain, denies difficulty swallowing, [...] me today at the request of Dr. Pollard for my opinion and advice regarding Multinodular [...] entered by the nurse and reviewed by nv Nursing Notes: Kathryn Ribeiro LPN 03/17/2023 9:13 [...] denies kidney s (more content not included)... [facility] History of Present illness Narrative 03-19-2023 Tony Escamilla MD - 03/19/2023 1:27 PM EDT Note Date & Type Note Facility 03-19-2023 History of Presen t illness Narrative HISTORY AND PHYSICAL Andie Mejia 1975 REFERRING PHYSICIAN: Keri Pollard MD [facility] [address] [facility] [address] [facility] [address] CHIEF COMPLAINT: Consult (Thyroid nodule) HPI: The patient is a 47 year old female with a complaint of a bilateral thyroid nodule. This thyroid nodule was found on Ultrasound by [facility]. The patient denies pain, denies difficulty swallowing, [...] me today at the request of Dr. Pollard for my opinion and advice regarding Multinodular [...] entered by the nurse and reviewed by nv Nursing Notes: Kathryn Ribeiro LPN 03/17/2023 9:13 [...] diagnosis) A letter was sent to Dr. Pollard indicating the above finding for this patient. Return to Clinic: The patient is instructed to follow-up with me 1 week post operatively. Tony Escamilla III, MD documented in this encounter [facility] Nurse Note 03-17-2023 Kathryn Ribeiro LPN - 03/17/2023 9:06 AM EDT Note Date [...] Kathryn Ribeiro LPN documented in this encounter [facility] Evaluation note Note Date & Type Note Facility documented in this encounter [facility] Evaluation note Note Date & Type Note Facility documented in this encounter [facility] Summary Purpose Family History No Family History [...] or prosecute any alcohol or drug abuse patient.[facility] the event this information is protected by the Federal Confidentiality of Alcohol and Drug Abuse Patient Records regulations: The Federal rules restrict any use of the information to criminally investigate or prosecute any alcohol or drug abuse patient.[facility] Reason for Visit (unrecogniz ed section and content) Reason Comments Procedure FNA OF RIGHT THYROID Care Teams (unrecognized sec tion and content) Obstetrician Relationship Specialty Start Date End Date Keri Pollard MD [address] [facility] [address] [place] [address] PCP - General Family Medicine 03/26/23 INFORMATION SOURCE (unrecogn ized section and content) [...] BE BASED ON THE PRIMARY CLINICAL RECORDS. [facility]. provides no warranty or guarantee of the accuracy or completeness of information in this document.
[2023-05-25 10:18] LABS: Absolute Lymphocyte Count 2.06 X10^3/uL (0.83-4.51); Absolute Neutrophil Count 8.2 X10^3/uL (2.0-7.7); Basophil# 0.08 X10^3/uL; Basophil% 0.7 % (0-1); Eosinophil# 0.13 X10^3/uL; Eosinophils% 1.2 % (0-5); Hematocrit 45.7 % (37-47); Hemoglobin 14.1 g/dL (12.0-15.0); Lymphocyte # 2.06 X10^3/ul (0.83-4.51); Lymphocyte % 18.6 % (19-41); Mean Corp Hgb Conc 30.9 g/dL (32-36); Mean Corpuscular Hgb 27.5 pg (27.0-32.0); Mean Corpuscular Volume 89.3 fL (81-99); Mean Platelet Vol. 9.5 fl (6.2-12.0); Monocyte# 0.56 X10^3/uL; Monocyte% 5.1 % (0-10); NRBC Flagged by Analyzer 0 % (0-5); Neutrophil # 8.21 X10^3/uL (2.7-7.7); Platelet Count 350 K/mm3 (150-450); RBC Distribution Width CV 13.2 % (11.6-14.6); RBC Distribution Width SD 43.6 fl (35.1-43.9); Red Blood Count 5.12 M/mm3 (4.2-5.4); White Blood Count 11.1 K/mm3 (4.4-11.0)
[2023-05-25 10:48] LABS: ALB/GLOB Ratio 0.9 RATIO (0.9-2.4); AST(SGOT) 16 U/L (15-37); Alanine Aminotransfer ALT/SGPT 27 U/L (13-56); Albumin, Serum 3.3 g/dL (3.2-5.0); Alkaline Phosphatase 81 U/L (45-117); Anion Gap 5 (5-15); BUN 13 mg/dL (7-18); BUN/Creat Ratio 12.7 RATIO (10-20); Calcium,Total 8.7 mg/dL (8.5-10.1); Chloride 112 mmol/L (98-107); Cholesterol 177 mg/dL (200); Creatinine, Serum 1.02 mg/dL (0.55-1.02); EST Glomerular Filtration Rate 62 mL/min (>60); Est Glom Filt Rate - Afr Amer 75 mL/min (>60); Globulin 3.7 g/dL (2.2-4.2); Glucose 123 mg/dL (74-106); High Density Lipoprotein 85 mg/dL; Potassium 4.3 mmol/L (3.5-5.1); Sodium Level 141 mmol/L (136-145); Thyroid Stim Hormone (TSH) 0.69 uIU/mL (0.358-3.74); Triglycerides 124 mg/dL; Very Low Density Lipoprotein 25 mg/dL (5-40)
[2023-05-25 13:46] LABS: Vitamin D,25 Hydroxy 49.9 ng/mL
[2023-05-27 12:48] LABS: Hemoglobin A1c 5.3 % (3.8-5.6)
== END | disposition home or self-care (01) ==
LOC: MFPLAB 08:18
PROVIDERS: PCP Family Medicine; Visit Provider Family Medicine
DX: E55.9 Vitamin D deficiency, unspecified (principal); F31.9 Bipolar disorder, unspecified; E66.9 Obesity, unspecified; R69 Illness, unspecified
CPT/HCPCS: 36415; 80053; 80061; 80178; 82306; 83036; 84443; 85025

== ENCOUNTER → 2024-02-04 | Outpatient (CLI) | payer OTHER, SELFPAY ==
[2024-02-04 15:15] LABS: Absolute Lymphocyte Count 2.53 X10^3/uL (0.83-4.51); Absolute Neutrophil Count 4.9 X10^3/uL (2.0-7.7); Basophil# 0.04 X10^3/uL; Basophil% 0.5 % (0-1); Eosinophil# 0.13 X10^3/uL; Eosinophils% 1.6 % (0-5); Hematocrit 42.9 % (37-47); Hemoglobin 13.7 g/dL (12.0-15.0); Lymphocyte # 2.53 X10^3/ul (0.83-4.51); Lymphocyte % 30.5 % (19-41); Mean Corp Hgb Conc 31.9 g/dL (32-36); Mean Corpuscular Volume 84.4 fL (81-99); Mean Platelet Vol. 9.9 fl (6.2-12.0); Monocyte# 0.62 X10^3/uL; Monocyte% 7.5 % (0-10); NRBC Flagged by Analyzer 0 % (0-5); Neutrophil # 4.93 X10^3/uL (2.7-7.7); Neutrophil % 59.4 % (47-70); Platelet Count 316 K/mm3 (150-450); RBC Distribution Width CV 13.2 % (11.6-14.6); RBC Distribution Width SD 40.7 fl (35.1-43.9); Red Blood Count 5.08 M/mm3 (4.2-5.4); White Blood Count 8.3 K/mm3 (4.4-11.0)
[2024-02-04 15:35] LABS: Vitamin D,25 Hydroxy 32.6 ng/mL
[2024-02-04 15:47] LABS: AST(SGOT) 17 U/L (15-37); Alanine Aminotransfer ALT/SGPT 23 U/L (13-56); Albumin, Serum 3.5 g/dL (3.2-5.0); Alkaline Phosphatase 65 U/L (45-117); Anion Gap 6 (5-15); BUN 14 mg/dL (7-18); BUN/Creat Ratio 13.9 RATIO (10-20); Calcium,Total 9.1 mg/dL (8.5-10.1); Chloride 111 mmol/L (98-107); Creatinine, Serum 1.01 mg/dL (0.55-1.02); EST Glomerular Filtration Rate 62 mL/min (>60); Est Glom Filt Rate - Afr Amer 75 mL/min (>60); Globulin 3.4 g/dL (2.2-4.2); Glucose 113 mg/dL (74-106); Potassium 3.9 mmol/L (3.5-5.1); Protein, Total 6.9 g/dL (6.4-8.2); Sodium Level 140 mmol/L (136-145); T4 Free Direct 1.07 ng/dL (0.76-1.46); Thyroid Stim Hormone (TSH) 0.277 uIU/mL (0.358-3.740)
[2024-02-08 13:59] LABS: Hemoglobin A1c 5.9 % (3.8-5.6)
[2024-02-09 16:10] LABS: Anti-Thyroglobulin AB < 1.0 IU/mL (0.0-0.9); Thyroglobulin, Serum Qt. 282.9 ng/mL (1.5-38.5); Thyroid Peroxidase AB < 9 IU/mL (0-34)
== END | disposition home or self-care (01) ==
LOC: MFPLAB 13:35
PROVIDERS: PCP Family Medicine; Visit Provider Family Medicine
DX: R73.09 Other abnormal glucose (principal); F31.9 Bipolar disorder, unspecified; R79.89 Other specified abnormal findings of blood chemistry; E04.2 Nontoxic multinodular goiter; E55.9 Vitamin D deficiency, unspecified
CPT/HCPCS: 36415; 80053; 82306; 83036; 84432; 84439; 84443; 85025; 86376; 86800

== ENCOUNTER → 2024-02-16 | Outpatient (CLI) | payer OTHER, SELFPAY ==
--- NOTE | 2024-02-16 12:25 | US_ITS ---
STUDY: THYROID ULTRASOUND REASON FOR EXAM: Female, 48 years old. NODULES TECHNIQUE: Ultrasound evaluation of the thyroid was performed with real-time and static hampton-scale imaging. COMPARISON: 03/10/2023 FINDINGS: RIGHT LOBE: The right lobe of the thyroid gland measures 5.4 x 2.5 x 2.2 cm. There is a heterogeneous echotexture. The entire thyroid gland is diffusely enlarged with innumerable heterogeneous nodules with no intervening normal parenchyma consistent with a multinodular goiter. LEFT LOBE: The left lobe of the thyroid gland measures 6.1 x 2.6 x 2.5 cm. There is a homogeneous echotexture. The entire thyroid gland is diffusely enlarged with innumerable heterogeneous nodules with no intervening normal parenchyma consistent with multinodular goiter. ISTHMUS: The isthmus measures 10 mm thick . The regional lymph nodes are normal. US/Thyroid IMPRESSION: No change in multinodular goiter. Electronically Signed: Clint Mancuso MD at 12:53 EDT ,
== END | disposition home or self-care (01) ==
LOC: US 12:24
PROVIDERS: PCP Family Medicine; Referring Provider Family Medicine; Visit Provider Family Medicine
DX: E04.2 Nontoxic multinodular goiter (principal)
CPT/HCPCS: 76536

== ENCOUNTER → 2024-11-03 | Outpatient (CLI) | payer OTHER, SELFPAY ==
[2024-11-03 15:38] LABS: Absolute Neutrophil Count 7.7 X10^3/uL (2.0-7.7); Basophil# 0.05 X10^3/uL; Basophil% 0.5 % (0-1); Eosinophil# 0.11 X10^3/uL; Hematocrit 44.4 % (37-47); Hemoglobin 14.2 g/dL (12.0-15.0); Lymphocyte % 21.2 % (19-41); Mean Corpuscular Hgb 26.8 pg (27.0-32.0); Mean Corpuscular Volume 83.8 fL (81-99); Mean Platelet Vol. 10.1 fl (6.2-12.0); Monocyte# 0.66 X10^3/uL; Monocyte% 6.1 % (0-10); NRBC Flagged by Analyzer 0 % (0-5); Neutrophil # 7.68 X10^3/uL (2.7-7.7); Neutrophil % 70.8 % (47-70); Platelet Count 346 K/mm3 (150-450); RBC Distribution Width CV 13.3 % (11.6-14.6); RBC Distribution Width SD 40.9 fl (35.1-43.9); White Blood Count 10.8 K/mm3 (4.4-11.0)
[2024-11-03 15:57] LABS: ALB/GLOB Ratio 1.4 RATIO (0.9-2.4); AST(SGOT) 23 U/L (<=31); Alanine Aminotransfer ALT/SGPT 29 U/L (<=34); Albumin, Serum 4.1 g/dL (3.5-5.0); Alkaline Phosphatase 67 U/L (35-104); Anion Gap 12 (5-15); BUN 16 mg/dL (4-19); BUN/Creat Ratio 17.1 RATIO (10-20); Calcium,Total 9.4 mg/dL (7.6-11.0); Carbon Dioxide 23.6 mmol/L (21.0-32.0); Chloride 102 mmol/L (98-108); Creatinine, Serum 0.94 mg/dL (0.70-1.20); EST Glomerular Filtration Rate 75 (>60); Globulin 2.9 g/dL (2.2-4.2); Glucose 92 mg/dL (70-99); Potassium 4.5 mmol/L (3.3-5.1); Sodium Level 138 mmol/L (133-145); Total Bilirubin 0.31 mg/dL (0.00-1.30)
== END | disposition home or self-care (01) ==
LOC: MFPLAB 12:11
PROVIDERS: PCP Family Medicine; Visit Provider Internal Medicine Rheumatology
DX: M06.4 Inflammatory polyarthropathy (principal); M79.7 Fibromyalgia; Z79.899 Other long term (current) drug therapy
CPT/HCPCS: 36415; 80053; 85025

== ENCOUNTER → 2024-11-15 | Outpatient (CLI) | payer OTHER, SELFPAY ==
[2024-11-15 12:21] LABS: Hematocrit 42.7 % (37-47); Hemoglobin 13.8 g/dL (12.0-15.0); Immature Granulocytes Count 0.030 X10^3/uL (0.0-0.0); Mean Corp Hgb Conc 32.3 g/dL (32-36); Mean Corpuscular Volume 84.4 fL (81-99); Mean Platelet Vol. 9.8 fl (6.2-12.0); NRBC Flagged by Analyzer 0 % (0-5); Platelet Count 313 K/mm3 (150-450); RBC Distribution Width CV 13.2 % (11.6-14.6); RBC Distribution Width SD 40.9 fl (35.1-43.9); Red Blood Count 5.06 M/mm3 (4.2-5.4); White Blood Count 9.0 K/mm3 (4.4-11.0)
[2024-11-15 13:40] LABS: AST(SGOT) 22 U/L (<=31); Alanine Aminotransfer ALT/SGPT 34 U/L (<=34); Albumin, Serum 4.0 g/dL (3.5-5.0); Alkaline Phosphatase 67 U/L (35-104); Anion Gap 11 (5-15); BUN 13 mg/dL (4-19); BUN/Creat Ratio 14.3 RATIO (10-20); Calcium,Total 9.3 mg/dL (7.6-11.0); Carbon Dioxide 24.3 mmol/L (21.0-32.0); Chloride 104 mmol/L (98-108); Cholesterol 158 mg/dL (<=200); Globulin 2.8 g/dL (2.2-4.2); Glucose 90 mg/dL (70-99); Low Density Lipoprotein Calc. 68 mg/dL; Potassium 4.7 mmol/L (3.3-5.1); Triglycerides 68 mg/dL; Very Low Density Lipoprotein 14 mg/dL (5-40); Vitamin D,25 Hydroxy 26.2 ng/mL (30-100); cholesterol:hdl ratio screen 2.08
== END | disposition home or self-care (01) ==
PROVIDERS: PCP Family Medicine; Referring Provider Family Medicine; Visit Provider Family Medicine
DX: R73.02 Impaired glucose tolerance (oral) (principal); E55.9 Vitamin D deficiency, unspecified; E66.9 Obesity, unspecified
CPT/HCPCS: 36415; 80053; 80061; 82306; 83036; 84443; 85025

== ENCOUNTER → 2024-12-05 | Outpatient (CLI) | payer OTHER, SELFPAY ==
--- NOTE | 2024-12-05 15:14 | BI_ITS ---
EXAM: SCRN MAMM (CAD)W/ISELA BILAT DATE: 12/05/2024 CLINICAL HISTORY: F, Age 49 y/o , SCREENING TECHNIQUE: SCRN MAMM (CAD)W/ISELA BILAT COMPARISON: Prior exam(s) dated 12/13/2017. FINDINGS: TISSUE DENSITY: There are scattered areas of fibroglandular density. Bilateral Breast Mammographic Findings: No significant masses, calcifications or other abnormalities are identified. BI/SCRN MAMM (CAD)W/ISELA BILAT IMPRESSION: There is no mammographic evidence of malignancy. OVERALL FINAL ASSESSMENT BI-RADS 1: NEGATIVE. RECOMMENDATION: Routine annual follow-up in 1 Year A letter with findings and recommendations will be mailed to the patient. Reading Location: [id number]
== END | disposition home or self-care (01) ==
LOC: OPBI 15:14
PROVIDERS: PCP Family Medicine; Referring Provider Family Medicine; Visit Provider Family Medicine
DX: Z12.31 Encounter for screening mammogram for malignant neoplasm of breast (principal)
CPT/HCPCS: 77063; 77067

== ENCOUNTER → 2024-12-29 | Outpatient (CLI) | payer OTHER, SELFPAY ==
--- NOTE | 2024-12-29 12:23 | US_ITS ---
PROCEDURE: THYROID 12/29/2024 REASON FOR EXAM: FEELS NODULES ARE GETTING BIGGER TECHNIQUE: Multiple images were obtained. COMPARISON: Prior study dated February 16, 2024. FINDINGS: Right thyroid lobe size: 5.4 cm 2.2 cm x 2.3 cm Left thyroid lobe size: 5.4 cm x 2.4 cm x 1.6 cm Isthmus: 1.2 cm Background parenchymal echotexture is heterogeneous Nodules: Once again, there is innumerable heterogeneous nodules involving both lobes of the thyroid gland. The largest in the right lobe measures 1.8 cm 1.9 cm 1.4 cm. This is in the lower pole. It is complex in nature. Increased vascularity. This is a TI-RADS category 4. In the left lobe, the largest heterogeneous complex nodules in the midpole measuring 1.9 cm 1.9 cm 1 cm. This is a TI-RADS 4. US/Thyroid IMPRESSION: Stable examination with multiple nodules as described. There are complex nodules in both lobes. The largest have been measured. If n o biopsy performed, biopsy recommended. RECOMMENDATION: Based on most suspicious nodule. Nodule size = largest diameter Only evaluate nodule if =>5 mm. Growth > 20% in 2 dimensions = worsening. Follow up to 4 nodules. Recommend biopsy for no more than 2 nodules. Reading Location: [facility]
== END | disposition home or self-care (01) ==
LOC: US 12:20
PROVIDERS: PCP Internal Medicine; Referring Provider Internal Medicine; Visit Provider Internal Medicine
DX: E04.2 Nontoxic multinodular goiter (principal)
CPT/HCPCS: 76536

== ENCOUNTER → 2025-01-16 | Outpatient (CLI) | payer OTHER, SELFPAY ==
--- NOTE | 2025-01-16 16:26 | US_ITS ---
PROCEDURE: TRANSVAGINAL NON- 01/16/2025 REASON FOR EXAM: EXCESSIVE FREQ MENSTRUATION TECHNIQUE: Procedure Code: USTVAG Modality: US Procedure: TRANSVAGINAL NON- COMPARISON: None FINDINGS: Measurements: Uterus: 8.6 cm x 5.6 cm x 4.5 cm with a volume of 114.15 mL Endometrial Thickness: 8 mm Right Ovary: Not visualized Left Ovary: Not visualized Uterus: Heterogeneous echotexture. There are 3 small uterine fibroids. The largest measures 1 cm x 1.2 cm x 0.7 cm. Nabothian cyst is seen. Endometrium: 8 mm. Hyperechoic. Right ovary: Not visualized. Left ovary: Not visualized. Other: No large pelvic mass identified. US/Transvaginal Non- IMPRESSION: Heterogeneous appearance of the uterus in keeping with fibroid change. The ovaries were not visualized. Reading [id number]
--- OUTSIDE RECORDS SUMMARY | 2025-01-16 23:35 | XMS RPT_ITS | CCD ---
Author Organization [facility] CliniSynj Care Team Providers Care Sample Taker Operator Name Role Phone Christianne Rosario Primary Care Provider Keri Pollard MD Primary Care Provider KERI POLLARD Primary Care Unavailable REYMUNDO ESCAMILLA Attending Unavailable REYMUNDO ESCAMILLA Attending Unavailable KERI POLLARD Primary Care Unavailable REYMUNDO ESCAMILLA Attending Unavailable CHRISTIANNE ROSARIO Primary Care Unavailable Moncho HINOJOSA, Dr. Keri Akins Primary Care Provider [phone] Wei HINOJOSA, Dr. Cardenas Attending Provider Moncho HINOJOSA, Dr. Keri Akins Attending Provider Moncho HINOJOSA, Dr. Keri Akins Referring Provider Heidi HINOJOSA, Dr. Arzate Attending Provider Heidi HINOJOSA, Dr. Arzate Primary Care Provider [phone] Heidi HINOJOSA, Dr. Arzate Referring Provider WILDER RANDLE Attending Unavailable WILDER RANDLE Primary Care Unavailable WILDER RANDLE Admitting Unavailable Carito Gordon Primary Care Unavailable Carito Gordon Attending Unavailable Carito Gordon Referring Unavailable Keri Pollard Primary Care Unavailable Theresa Carvajal Attending Unavailable Carito Gordon Attending Unavailable Keri Pollard Primary Care Unavailable Keri Pollard Referring Unavailable Keri Pollard Attending Unavailable Keri Pollard Primary Care Unavailable Keri Pollard Attending Unavailable Keri Pollard Referring Unavailable Keri Pollard Primary Care Unavailable Carito Gordon Primary Care Unavailable Christa Leal Attending Unavailable Christa Leal Referring Unavailable Keri Pollard Primary Care Unavailable Keri Pollard Attending Unavailable Keri Pollard Referring Unavailable Keri Pollard Attending Unavailable Keri Pollard Referring Unavailable Keri Pollard Primary Care Unavailable Allergies Allergy Classification Reported Allergen(s) Allergy Type Date of Onset Reaction(s) Facility (20 sources) Soy protein; Translations: [soy] Allergy to substance 1 Diarrhea [facility] (20 sources) Wheat gluten extract Drug Allergy 1 Diarrhea [facility] (20 sources) Iodinated Contrast Media; Translations: [IODINATED CONTRAST MEDIA] Allergy to substance 1 Rash, Other: See Comments [facility] (4 sources) DAIRY Allergy to substance 1 Diarrhea [facility] Work Phone: (20 sources) cow milk allergenic extract Drug Allergy 2 Diarrhea [facility] (3 sources) Shellfish; Translations: [SHELLFISH DERIVED] Drug Allergy 3 Swelling, Shortness of Breath [facility] (1 source) Gluten Drug allergy (disorder) 5 [facility] Repository (1 source) Milk Drug allergy (disorder) 5 [facility] Rep[facility] Medications Current Medications Medication Drug Class(es) Dates Sig (Normalized) Sig (Original) cholecalciferol 0.05 mg oral capsule (4 sources) Vitamin D Start: 12-26-2024 take 1 capsule by mouth once daily Cholecalciferol (Vitamin D3) 50 mcg (2,000 unit) capsule Active 50 ug PO daily December 26, 2024 12:00am take 1 tablet by jessica two times weekly cholecalciferol (VITAMIN D-3) 50 mcg (2, 000 unit) tablet Take 2,000 Units by mouth two times a week. 0 Active Comment on above: Take 2,000 Units by mouth two times a week. hydroxychloroquine sulfate 200 mg oral tablet (4 sources) Antimalarial, Antirheumatic Agent Start: 2024 take 1 tablet by mouth twice daily Hydroxychloroquine 200 mg tablet Active 200 mg PO TWICE A DAY December 26, 2024 12:00am hydrOXYchloroQUI NE 300 mg tablet Take 200 mg by mouth two times a day. 0 Active Comment on above: Take 200 mg by mouth two times a day. Multivitamin tablet (2 sources) Start: Multivitamin tablet Active 1 {tbl} PO EVERY MORNING December 26, 2024 12:00am 24 hr propranolol hydrochloride 120 mg extended release oral capsule (20 sources) beta-Adrenergic Buster Start: End: take 1 capsule by mouth every twenty-four hours at bedtime Propranolol 120 mg capsule,extended release 24 hr Active 120 mg PO AT BEDTIME 90 0 December 26, 2024 9:13am Start: 12-27-2020 End: 12-26-2024 take 1 capsule by mouth every twenty-four hours at bedtime Propranolol 80 mg capsule,extended release 24 hr Discontinued 80 mg PO AT BEDTIME December 27, 2020 12:00am December 26, 2024 8:48am PTSD take 2 tablets by mo uth once daily at bedtime propranolol (INDERAL) 60 mg tablet Take 120 mg by mouth daily at bedtime. 0 Active Comment on above: Take 120 mg by mouth daily at bedtime. Tirzepatide (Mounjaro) 5 mg/0.5 mL pen injector (2 sources) Start: 12-26-2024 Tirzepatide (Mounjaro) 5 mg/0.5 mL pen injector Active 5 mg SC EVERY WEEK December 26, 2024 12:00am Completed/Discontinued Medications Medication Drug Class(es) Dates Sig (Normalized) Sig (Original) [id number] 200 actuat albuterol 0.09 mg/actuat metered dose inhaler (2 sources) beta2-Adrenergic Agonist take 8 puff(s) by inhalation every six hours as needed for wheezing albuterol HFA (PROVENTIL HFA) inhaler Inhale 8 Puffs as instructed every 6 hours as needed for wheezing/shortness of breath. 0 Active Comment on above: Inhale 8 Puffs as in structed every 6 hours as needed for wheezing/shortness of breath. ergocalciferol 1.25 mg oral capsule (20 sources) Provitamin D2 Compound Start: 12-27-2020 End: 12-26-2024 Ergocalciferol (Vitamin D2) 1,250 mcg (50,000 unit) capsule Discontinued 1250 ug PO TWICE A DAY December 27, 2020 12:00am December 26, 2024 8:49am folic acid 1 mg oral tablet (20 sources) Start: 12-27-2020 End: 12-26-2024 take 2 tablets by mouth once daily Folic Acid 1 mg tablet Discontinued 2 mg PO DAILY December 27, 2020 12:00am December 26, 2024 8:48am Start: 12-27-2020 take 2 mg by mouth once daily Folic Acid Active 2 MG PO DAILY December 26, 2020 11:00pm ibuprofen 800 mg oral tablet (20 sources) Nonsteroidal Anti-inflammatory Drug Start: 01-02-2021 End: 12-26-2024 Ibuprofen 800 mg tablet Discontinued 600 mg PO THREE TIMES A DAY as needed for pain 30 0 January 02, 2021 12:00am December 26, 2024 8:48am Start: 01-02-2021 take 600 mg by mouth three times daily Ibuprofen Active 600 MG PO THREE TIMES A DAY 30 January 01, 2021 11:00pm leucovorin 25 mg oral tablet (20 sources) Folate Analog Start: 12-27-2020 End: 12-26-2024 take 1 tablet by mouth every week Leucovorin Calcium 25 mg tablet Discontinued 25 mg PO EVERY WEEK December 27, 2020 12:00am December 26, 2024 8:48am LUPUS lithium carbonate 300 mg oral tablet (20 sources) Start: 12-27-2020 End: 12-26-2024 take 2 tablets by mouth twice daily [place] Carbonate 300 mg tablet Discontinued 600 mg PO TWICE A DAY December 27, 2020 12:00am December 26, 2024 8:48am BIPOLAR Start: 12-27-2020 take 600 mg by mouth twice carlos ly [place] Carbonate Active 600 MG PO TWICE A DAY December 26, 2020 11:00pm take 1 capsule by [facility] twice daily at mealtime lithium carbonate (ESKALITH) 300 mg capsule Take 300 mg by mouth two times a day with meals. 0 Active Comment on above: Take 300 mg by mouth two times a day with meals. methotrexate 2.5 mg oral tablet (20 sources) Folate Analog Metabolic Inhibitor Start: 12-27-2020 End: 12-26-2024 Methotrexate Sodium 2.5 mg tablet Discontinued 17.5 mg PO EVERY WEEK December 27, 2020 12:00am December 26, 2024 8:48am Start: 12-27-2020 take 17.5 mg by mout h every week Methotrexate Sodium Active 17.5 MG PO EVERY WEEK December 26, 2020 11:00pm nystatin [id number] unt/ml oral suspension (2 sources) Polyene Antifungal nystatin (MYC OSTATIN) 100,000 unit/mL suspension Take 200,000 Units by mouth three times a day at 6 am, 12 pm, and 9 pm. 0 Active Comment on above: Take 200,000 Units b y mouth three times a day at 6 am, 12 pm, and 9 pm. oxyCODONE hydrochloride 5 mg oral capsule (20 sources) Opioid Agonist Start: End: take 1 capsule by mouth every six hours as needed for pain Oxycodone 5 mg capsule Discontinued 5 mg PO EVERY 6 HOURS as needed for pain 3 3 0 January 02, 2021 December 26, 2024 8:48am Status post hysteroscopy Status post endometrial ablation Other specified postprocedural states sulfaSALAzine 500 mg delayed release oral tablet (20 sources) Aminosalicylate Start: End: take 1 tablet by mouth twice daily Sulfasalazine 500 mg tablet,delayed release (DR/EC) Discontinued 500 mg PO TWICE A DAY December 27, 2020 12:00am December 26, 2024 8:48am LUPUS SUMAtriptan 25 mg oral tablet (2 sources) Serotonin-1b and Serotonin-1d Receptor Agonist SUMAtriptan (IMITREX ) 25 mg tablet Take 25 mg by mouth as needed for migraine headache (see administration instructions). May repeat dose after 2 hours if needed. Maximum daily dose is 200 mg per day. 0 Active Comment on above: Take 25 mg by mouth as needed for migraine headache (see administration instructions). May repeat dose after 2 hours if needed. Maximum daily dose is 200 mg per day. topiramate 100 mg oral tablet (20 sources) Start: End: take 1 tablet by mouth once daily Topiramate 100 mg tablet Discontinued 100 mg PO DAILY December 27, 2020 12:00am December 26, 2024 8:48am MIGRAINES take 1 tablet by mouth once adriel y topiramate (TOPAMAX) 25 mg tablet Take 25 mg by mouth once daily. 0 Active Comment on above: Take 100 mg by mouth once daily. Take 25 mg by mouth once daily. 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 Factor V Leiden; Translations: [Activated protein C resistance] 04-03-2019 Chronic Diabetes mellitus without complication (3 sources) Prediabetes; Translations: [Prediabetes] Onset: 03-02-2024 12-26-2024 Episodic Menstrual disorders (20 sources) Menorrhagia; Translations: [Excessive and frequent menstruation with regular cycle] Onset: 01-05-2025 01-02-2021 Chronic Mood disorders (1 source) Bipolar disorder; Translations: [Bipolar disorder, unspecified] 12-26-2024 Chronic Other hereditary and degenerative nervous system conditions (1 source) Essential tremor; Translations: [Essential tremor] 12-26-2024 Chronic Other nervous system disorders (1 source) H/O: migraine; Translations: [Personal history of other diseases of the nervous system and sense organs] 12-26-2024 Episodic Other nutritional; endocrine; and metabolic disorders (1 source) Body mass index 40+ - severely obese; Translations: [Morbid (severe) obesity due to excess calories] 12-26-2024 Chronic Other screening for suspected conditions (not mental disorders or infectious disease) (2 sources) Patient encounter status; Translations: [Encounter for screening for malignant neoplasm of colon] Onset: 12-12-2024 12-26-2024 Episodic Residual codes; unclassified (20 sources) Past history of procedure; Translations: [Other specified postprocedural states] 01-02-2021 Episodic Residual codes; unclassified (20 sources) History of endometrial ablation; Translations: [Other specified postprocedural states] 01-02-2021 Episodic Rheumatoid arthritis and related disease (1 source) Inflammatory polyarthropathy; Translations: [Inflammatory polyarthropathy] Onset: 11-29-2024 Chronic Systemic lupus erythematosus and connective tissue disorders (20 sources) Lupus erythematosus; Translations: [Systemic lupus erythematosus, unspecified] 11-18-2019 Chronic Thyroid disorders (5 sources) Multinodular goiter; Translations: [Nontoxic multinodular goiter] Onset: 01-04-2025 03-17-2023 Chronic Results Test Name Value Interpretation Reference Range Facility Thyroidon 12-29-2024 Thyroid [facility] Imaging Services [address] [place] [address] Thyroid MR#: [id number] Acct: [id number] Name: ANDIE MEJIA Rep #: [id number] : 1975 F 49 From: Andi smith MD PCP: Dr. Carito Gordon MD Status: REG CLI Study: Thyroid Date of Exam: 12/29/24 Exam# [id number] Ordering Dr: Carito Gordon MD PROCEDURE: THYROID 12/29/2024 REASON FOR EXAM: FEELS NODULES ARE GETTING BIGGER TECHNIQUE: Multiple images were obtained. COMPARISON: Prior study dated February 16, 2024. FINDINGS: Right thyroid lobe size: 5.4 cm 2.2 cm x 2.3 cm Left thyroid lobe size: 5.4 cm x 2.4 cm x 1.6 cm Isthmus: 1.2 cm Background parenchymal echotexture is heterogeneous Nodules: Once again, there is innumerable heterogeneous nodules involving both lobes of the thyroid gland. The largest in the right lobe measures 1.8 cm 1.9 cm 1.4 cm. This is in the lower pole. It is complex in nature. Increased vascularity. This is a TI-RADS category 4. In the left lobe, the largest heterogeneous complex nodules in the midpole measuring 1.9 cm 1.9 cm 1 cm. This is a TI-RADS 4. US/Thyroid IMPRESSION: Stable examination with multiple nodules as described. There are complex nodules in both lobes. The largest have been measured. If no biopsy performed, biopsy recommended. RECOMMENDATION: Based on most suspicious nodule. Nodule size = largest diameter Only evaluate nodule if =>5 mm. Growth > 20% in 2 dimensions = worsening. Follow up to 4 nodules. Recommend biopsy for no more than 2 nodules. Reading Location: [facility] CC: Dr. Carito Gordon MD Tiltrotor Crew Chief: Signed Normal [facility] Internal Medicine Office Vis jose guadalupeshin 12-25-2024 Internal Medicine Office Visit [facility] [address] [place], [place] [address] OFFICE VISIT Date of Service: 12/26/24 MR#: [id number] Acct: [id number] Name: ANDIE MEJIA Rep #: [id number] : 1975 Provider: Dr. Carito jeffrey MD Age/Sex: 49/F Location: [facility] Status: Signed Intake Vital Signs 04/23/22 16:54 12/26/24 09:04 Height 5 ft 7 in 5 ft 7 in Weight: 280 lb BMI 43.8 BP 124/78 H Blood Pressure Location Lt brachial Position Sitting Respiration 18 Pulse 72 Pulse Source Monitor Temp 97.8 F Temp Source Temporal Comment unable to obtain pulse oximetry, pt has gel nails Intake Visit Reasons: New patient establish ppwk sent Chief Complaint: New patient establish ppwk sent Is patient in pain?: No Allergies gluten Allergy (Verified 12/26/24 08:47) Diarrhea Iodinated Contrast Media (CONTRASTS) Allergy (Verified 12/26/24 08:47) Rash soy Allergy (Verified 12/26/24 08:47) Diarrhea milk (dairy) Adverse Reaction (Verified 12/26/24 08:47) Diarrhea Medications ???Medication ???Instructions ???Recorded ???Confirmed ???Type cholecalciferol (vitamin D3) 50 50 mcg PO QDAY 12/26/24 12/26/24 H istory mcg (2,000 unit) capsule hydroxychloroquine 200 mg tablet 200 mg PO BID 12/26/24 12/26/24 Hi story multivitamin 1 tab PO QAM 12/26/24 12/26/24 His tory propranolol 120 mg capsule,24 120 mg PO QHS #90 caps 12/26/24 Rx hr,extended release tirzepatide 5 mg/0.5 mL 5 mg subcut QWEEK 12/26/24 5 History subcutaneous pen injector (Miriam) Nurse's Note: pt voiced concerns about her multi nodule thyroid nodule enlargement over the past few months. diagnosis list, surgical history, and family dx history reviewed with pt. [facility] Medical History (Updated 12/26/24 @ 11:[address] Carito Gordon MD) Menorrhagia Thyroid nodule (03/17/23) Pneumonia PTSD (post-traumatic stress disorder) Vitamin deficiency (05/17/94) Skin cancer (07/15/12) Polycystic ovaries (05/17/89) Osteoarthritis (05/17/04) History of blood clots (12/15/97) Gallstone (03/17/16) Emotional disorder (05/17/01) Bone fracture (05/17/84) Bleeding disorder (12/15/97) Allergies (05/17/96) Adrenal adenoma (02/14/23) Wears glasses Anxiety Bipolar disorder History of steroid therapy Anemia Pulmonary embolism Activated protein C resistance Migraine headache Injury of head and neck Former smoker Lupus History of stress test Surgical History (Updated 12/26/24 @ 09:[address] Carito Gordon MD) S/P thyroid biopsy S/P skin cancer resection Status post hysteroscopy S/P endometrial ablation Hx laparoscopic cholecystectomy Hx of tubal ligation Hx of appendectomy Family History (Updated 12/26/24 @ 09:[address] Carito Gordon MD) Father Alcoholism Lung cancer Diabetes Mental disorder Suicide attempt Mother Anemia Anxiety Asthma Arthritis Blood clot in vein Mental disorder Osteoporosis Respiratory disease Thyroid disorder Brother Alcoholism Daughter Anemia Mental disorder Suicide attempt Addiction Brother Age: 47 Alcoholism Aunt Cancer lung Uncle Cancer bladder and kidney Son Addiction Social History (Updated 12/26/24 @ 09:[address] 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 current occupational exposures/hazards: No pets and animals: Yes (One six year-old cat) leisure activities: exercise, art, music and reading history of recent travel: No sexually active: No Smoking Status: Former smoker quit date: 05/17/17 pack-years: 8 Tobacco: How many years used: 15 how long ago did patient quit smokin years second hand exposure: Yes (Through parent from infancy) alcohol intake: former year quit: 2021 details: never a heavy drinker substance use type: does not use diet: other well-balanced diet: daily or most days caffeine: Yes (1-2 cups of half-caff daily) Type: coffee eating out: rarely or never during the past year weight has: decreased > 10 lbs what type of physical activity do you participate in: walking, yoga and weight training frequency: 3-4 times per week duration: 45-60 minutes/day manda/yazidism: Spiritual- Jewish seatbelt use: always do you feel safe at home: Yes Questionnaire PQH-9 BMS Over the last 2 weeks, how often have you been bothered by any of the following problems? 1. Little interest or pleasure in doing things: not at all 2. Feeling down, depressed, or hopeless: not at all 3. Trouble falling or staying asleep, or sleeping too much: several days 4. Feeling tired or having little energy: several days 5. Poor appetite or overeating: not at all 6. Feeling bad a (more content not included)... Normal [facility] Breast imaging reportOrdered By: Latisha Hopper on 12-06-2024 Study report [facility] Imaging Services [address] [place] [address] SCRN MAMM (CAD)W/ISELA BILAT MR#: [id number] Acct: [id number] Name: ANDIE MEJIA Rep #: [id number] : 1975 F 49 From: Gloria Hopper MD PCP: Dr. Keri Pollard MD Status: KAROL Chase [facility] Study:SCRN MAMM (CAD)W/ISELA BILAT Date of Exa m: 12/05/24 Exam# [id number] Ordering Dr: Keri Pollard MD EXAM: SCRN MAMM (CAD)W/ISELA BILAT DATE: 12/05/2024 CLINICAL HISTORY: F, Age 49 y/o , SCREENING TECHNIQUE: SCRN MAMM (CAD)W/ISELA BILAT COMPARISON: Prior exam(s) dated 12/13/2017. FINDINGS: TISSUE DENSITY: There are scattered areas of fibroglandular density. Bilateral Breast Mammographic Findings: No significant masses, calcifications or other abnormalities are identified. BI/SCRN MAMM (CAD)W/ISELA BILAT IMPRESSION: There is no mammographic evidence of malignancy. OVERALL FINAL ASSESSMENT BI-RADS 1: NEGATIVE. RECOMMENDATION: Routine annual follow-up in 1 Year A letter with findings and recommendations will be mailed to the patient. Reading Location: [facility] CC: Dr. Keri Pollard MD ~ Tiltrotor Crew Chief: Signed [facility] SCRN MAMM (CAD)W/ISELA BILATo n 12-05-2024 SCRN MAMM (CAD)W/ISELA BILAT [facility] Imaging Services [address] [place] [address] [id number] SCRN MAMM (CAD)W/ISELA BILAT MR#: [id number] Acct: [id number] Name: ANDIE MEJIA Rep #: [id number] : 1975 F 49 From: Latisha Hopper MD PCP: Dr. Keri Pollard MD Status: [facility] CLI Study: SCRN MAMM (CAD)W/ISELA BILAT Date of Exam: 11/15 07/11 Exam# [id number] Ordering Dr: Keri Pollard MD EXAM: SCRN MAMM (CAD)W/ISELA BILAT DATE: 12/05/2024 CLINICAL HISTORY: F, Age 49 y/o , SCREENING TECHNIQUE: SCRN MAMM (CAD)W/ISELA BILAT COMPARISON: Prior exam(s) dated 12/13/2017. FINDINGS: TISSUE DENSITY: There are scattered areas of fibroglandular density. Bilateral Breast Mammographic Findings: No significant masses, calcifications or other abnormalities are identified. BI/SCRN MAMM (CAD)W/ISELA BILAT IMPRESSION: There is no mammographic evidence of malignancy. OVERALL FINAL ASSESSMENT BI-RADS 1: NEGATIVE. RECOMMENDATION: Routine annual follow-up in 1 Year A letter with findings and recommendations will be mailed to the patient. Reading Location: [facility] CC: Dr. Keri Pollard MD Tiltrotor Crew Chief: Signed Normal [facility] Absolute lymphocyte countOrd ered By: Keri Pollard on 11-15-2024 Lymphocytes Auto (Unsp spec) [#/Vol] 2.01 10*3/uL 0.83-4.51 [facility] Absolute neutrophil countOrd ered By: Keri Pollard on 11-15-2024 Neutrophils (Bld) [#/Vol] 6.3 10*3/uL 2.0-7.7 [facility] Anion gap in Serum or Plasma Ordered By: Keri Pollard on 11-15-2024 Anion gap [Moles/Vol] 11 mmol/L 5-15 [facility] Automated lymphocyte count a s percentage of total leukocytesOrdered By: Keri Pollard on 11-15-2024 Lymphocytes/100 WBC Auto (Unsp spec) 22.3 % 19- [facility] BUN/creatinine ratioOrdered By: Keri Pollard on 11-15-2024 Urea nitrogen/Creatinine [Mass ratio] 14.3 mg/mg 10- [facility] Basophil percentageOrdered B y: Keri Pollard on 11-15-2024 Basophils/100 WBC (Bld) 0.7 % 0-1 [facility] Bilirubin, totalOrdered By: Keri Pollard on 11-15-2024 Bilirubin [Mass/Vol] 0.30 mg/dL 0.00-1.30 [facility] CBC W/Diff, Automatedon Absolute Lymph 2.01 X10 3/uL Normal 0.83-4.51 [facility] Comment on above: Order Comment: Order Date: 11/15/24 Order Info: 0184-1 - CBCD Performed By: #### L 501.9985, L100.0100, L500.4050, L500.4100, L501.9520 #### [facility] [place], [place], [id number] Absolute Neut 6.3 X10 3/uL Normal 2.0-7.7 [facility] Comment on above: Order Comment: Order Date: 11/15/24 Order Info: 0184-1 - CBCD Performed By: #### L 501.9985, L100.0100, L500.4050, L500.4100, L501.9520 #### [facility] [address] [place], [address] Basophils/100 WBC (Bld) 0.7 % Normal 0-1 [facility] Comment on above: Order Comment: Order Date: 11/15/24 Order Info: [id number] - CBCD Performed By: #### L 501.9985, L100.0100, L500.4050, L500.4100, L501.9520 #### [facility] [address] [place], [address] Eosinophils/100 WBC (Bld) 1.2 % Normal 0-5 [facility] Comment on above: Order Comment: Order Date: 11/15/24 Order Info: [id number]- - CBCD Performed By: #### L 501.9985, L100.0100, L500.4050, L500.4100, L501.9520 #### [facility] [address] [place], [address] Erythrocyte distribution width (RBC) [Ratio] 13.2 % Normal 11.6-14.6 [facility] Comment on above: Order Comment: Order Date: 11/15/24 Order Info: 0184-1 - CBCD Performed By: #### L 501.9985, L100.0100, L500.4050, L500.4100, L501.9520 #### [facility] [address] [place], [address] Hematocrit (Bld) [Volume fraction] 42.7 % Normal 37-47 [facility] Comment on above: Order Comment: Order Date: 11/15/24 Order Info: 0184-1 - CBCD Performed By: #### L 501.9985, L100.0100, L500.4050, L500.4100, L501.9520 #### [facility] [address] [place], [address] Hemoglobin (Bld) [Mass/Vol] 13.8 g/dL Normal 12.0-15.0 [facility] Comment on above: Order Comment: Order Date: 11/15/24 Order Info: 0184-1 - CBCD Performed By: #### L 501.9985, L100.0100, L500.4050, L500.4100, L501.9520 #### [facility] [address] [place], [address] IG% 0.300 Normal 0.0-0.9 [facility] Comment on above: Order Comment: Order Date: 11/15/24 Order Info: 0184-1 - CBCD Result Comment: IG% - Immature Granulocytes (promyelocytes, myelocytes and metamyelocytes) > 1% indicates that a LEFT SHIFT is Present. Performed By: #### L 501.9985, L100.0100, L500.4050, L500.4100, L501.9520 #### [facility] [address] [place], [address] Lymphocytes/100 WBC (Bld) 22.3 % Normal 19-41 [facility] Comment on above: Order Comment: Order Date: 11/15/24 Order Info: [id number] - CBCD Performed By: #### L 501.9985, L100.0100, L500.4050, L500.4100, L501.9520 #### [facility] [address] [place], [address] MCH (RBC) [Entitic mass] 27.3 pg Normal 27.0-32.0 [facility] Comment on above: Order Comment: Order Date: 11/15/24 Order Info: [id number] - CBCD Performed By: #### L 501.9985, L100.0100, L500.4050, L500.4100, [id number] #### [facility] [address] [place], [address] MCHC (RBC) [Mass/Vol] 32.3 g/dL Normal 32-36 [facility] Comment on above: Order Comment: Order Date: 11/15/24 Order Info: [id number] - CBCD Performed By: #### L 501.9985, L100.0100, L500.4050, L500.4100, [id number] #### [facility] [address] [place], [address] MCV (RBC) [Entitic vol] 84.4 fL Normal 81-99 [facility] Comment on above: Order Comment: Order Date: 11/15/24 Order Info: [id number] - CBCD Performed By: #### L 501.9985, L100.0100, L500.4050, L500.4100, [id number] #### [facility] [address] [place], [address] Monocytes/100 WBC (Bld) 5.7 % Normal 0-10 [facility] Comment on above: Order Comment: Order Date: 11/15/24 Order Info: [id number] - CBCD Performed By: #### L 501.9985, L100.0100, L500.4050, L500.4100, [id number] #### [facility] [address] [place], [address] Neutrophils/100 WBC (Bld) 69.8 % Normal 47-70 [facility] Comment on above: Order Comment: Order Date: 11/15/24 Order Info: [id number] - CBCD Performed By: #### L 501.9985, L100.0100, L500.4050, L500.4100, [id number] #### [facility] [address] [place], [address] Nucleated RBC (Bld) [#/Vol] 0 10*3/uL Normal 0-5 [facility] Comment on above: Order Comment: Order Date: 11/15/24 Order Info: [id number] - CBCD Performed By: #### L 501.9985, L100.0100, L500.4050, L500.4100, L501.9520 #### [facility] [address] [place], [address] Platelet mean volume (Bld) [Entitic vol] 9.8 fL Normal 6.2-12.0 [facility] Comment on above: Order Comment: Order Date: 11/15/24 Order Info: [id number] - CBCD Performed By: #### L 501.9985, L100.0100, L500.4050, L500.4100, L501.9520 #### [facility] [address] [place], [address] Platelets (Bld) [#/Vol] 313 10*3/uL Normal 150-450 [facility] Comment on above: Order Comment: Order Date: 11/15/24 Order Info: [id number] - CBCD Performed By: #### L 501.9985, L100.0100, L500.4050, L500.4100, L501.9520 #### [facility] [address] [place], [address] RBC (Bld) [#/Vol] 5.06 10*6/uL Normal 4.2-5.4 [facility] Comment on above: Order Comment: Order Date: 11/15/24 Order Info: [id number] - CBCD Performed By: #### L 501.9985, L100.0100, L500.4050, L500.4100, [id number] #### [facility] [address] [place], [address] RDW SD 40.9 fl Normal 35.1-43.9 [facility] Comment on above: Order Comment: Order Date: 11/15/24 Order Info: [id number] - CBCD Performed By: #### L 501.9985, L100.0100, L500.4050, L500.4100, L501.9520 #### [facility] [address] [place], [address] WBC (Bld) [#/Vol] 9.0 10*3/uL Normal 4.4-11.0 [facility] Comment on above: Order Comment: Order Date: 11/15/24 Order Info: [id number] - CBCD Performed By: #### L 501.9985, L100.0100, L500.4050, L500.4100, L501.9520 #### [facility] [address] [place], [address] Calculated very low density lipoprotein (VLDL) cholesterol measurementOrdered By: Keri Pollard on 11-15-2024 Calculated very low density lipoprotein (VLDL) cholesterol measurement 14 mg/dL 5-40 [facility] Carbon dioxide, total [Moles /volume] in Central venous bloodOrdered By: Keri Pollard on 11-15-2024 CO2 [Moles/Vol] 24.3 mmol/L 21.0-32.0 [facility] Chloride assayOrdered By: Mattie Pollard on 11-15-2024 Chloride [Moles/Vol] 104 mmol/L 98-108 [facility] Comprehensive Metabolic Prof ilon 11-15-2024 Albumin [Mass/Vol] 4.0 g/dL Normal 3.5-5.0 [facility] Comment on above: Order Comment: Order Date: 11/15/24Order Info: [id number] - CMPOrder Info: [id number] - LIPIDOrder Info: [id number] - TSH Performed By: #### L 100.0100, L500.4050 #### [facility] [address] [place], [address] Albumin/Globulin [Mass ratio] 1.4 {ratio} Normal 0.9-2.4 [facility] Comment on above: Order Comment: Order Date: 11/15/24Order Info: [id number] - CMPOrder Info: [id number] - LIPIDOrder Info: [id number] - TSH Performed By: #### L 100.0100, L500.4050 #### [facility] [address] [place], [address] ALK PHOS 67 U/L Normal 35-104 [facility] Comment on above: Order Comment: Order Date: 11/15/24Order Info: [id number] - CMPOrder Info: [id number] - LIPIDOrder Info: [id number] - TSH Performed By: #### L 100.0100, L500.4050 #### [facility] [address] [place], [address] ALT [Catalytic activity/Vol] 34 U/L Normal <=34 [facility] Comment on above: Order Comment: Order Date: 11/15/24Order Info: [id number] - CMPOrder Info: [id number] - LIPIDOrder Info: [id number] - TSH Performed By: #### L 100.0100, L500.4050 #### [facility] [address] [place], [address] AST [Catalytic activity/Vol] 22 U/L Normal <=31 [facility] Comment on above: Order Comment: Order Date: 11/15/24Order Info: [id number]- - CMPOrder Info: [id number] - LIPIDOrder Info: [id number] - TSH Performed By: #### L 100.0100, L500.4050 #### [facility] [address] [place], [address] Bilirubin [Mass/Vol] 0.30 mg/dL Normal 0.00-1.30 [facility] Comment on above: Order Comment: Order Date: 11/15/24Order Info: [id number] - CMPOrder Info: [id number] - LIPIDOrder Info: [id number] - TSH Performed By: #### L 100.0100, L500.4050 #### [facility] [address] [place], [address] BUN/CRE 14.3 RATIO Normal 10-20 [facility] Comment on above: Order Comment: Order Date: 11/15/24Order Info: [id number] - CMPOrder Info: [id number] - LIPIDOrder Info: [id number] - TSH Performed By: #### L 100.0100, L500.4050 #### [facility] [address] [place], [address] Calcium [Mass/Vol] 9.3 mg/dL Normal 7.6-11.0 [facility] Comment on above: Order Comment: Order Date: 11/15/24Order Info: [id number] - CMPOrder Info: [id number] - LIPIDOrder Info: [id number] - TSH Performed By: #### L 100.0100, L500.4050 #### [facility] [address] [place], [address] Chloride [Moles/Vol] 104 mmol/L Normal 98-108 [facility] Comment on above: Order Comment: Order Date: 11/15/24Order Info: [id number] - CMPOrder Info: [id number] - LIPIDOrder Info: [id number] - TSH Performed By: #### L 100.0100, L500.4050 #### [facility] [address] [place], [address] CO2 [Moles/Vol] 24.3 mmol/L Normal 21.0-32.0 [facility] Comment on above: Order Comment: Order Date: 11/15/24Order Info: [id number] - CMPOrder Info: [id number] - LIPIDOrder Info: [id number] - TSH Performed By: #### L 100.0100, L500.4050 #### [facility] [address] [place], [address] Creatinine [Mass/Vol] 0.89 mg/dL Normal 0.70-1.20 [facility] Comment on above: Order Comment: Order Date: 11/15/24Order Info: [id number] - CMPOrder Info: [id number] - LIPIDOrder Info: [id number] - TSH Performed By: #### L 100.0100, L500.4050 #### [facility] [address] [place], [address] GAP 11 Normal 5-15 [facility] Comment on above: Order Comment: Order Date: 11/15/24Order Info: [id number] - CMPOrder Info: [id number] - LIPIDOrder Info: [id number] - TSH Performed By: #### L 100.0100, L500.4050 #### [facility] [address] [place], [address] GFR/1.73 sq M.predicted among non-blacks MDRD (S/P/Bld) [Vol rate/Area] 80 mL/min/{1.73_m2} Normal >60 [facility] Comment on above: Order Comment: Order Date: 11/15/24Order Info: [id number]- - CMPOrder Info: [id number] - LIPIDOrder Info: 3 - TSH Result Comment: mL/m in/1.73m2 CKD-EPI Creatinine Equation (2020) Performed By: #### L 100.0100, L500.4050 #### [facility] [address] [place], [address] Globulin (S) [Mass/Vol] 2.8 g/dL Normal 2.2-4.2 [facility] Comment on above: Order Comment: Order Date: 11/15/24Order Info: [id number]- - CMPOrder Info: [id number] - LIPIDOrder Info: [id number] - TSH Performed By: #### L 100.0100, L500.4050 #### [facility] [address] [place], [address] Glucose [Mass/Vol] 90 mg/dL Normal 70-99 [facility] Comment on above: Order Comment: Order Date: 11/15/24Order Info: [id number] - CMPOrder Info: [id number] - LIPIDOrder Info: [id number] - TSH Performed By: #### L 100.0100, L500.4050 #### [facility] [address] [place], [address] Potassium [Moles/Vol] 4.7 mmol/L Normal 3.3-5.1 [facility] Comment on above: Order Comment: Order Date: 11/15/24Order Info: [id number] - CMPOrder Info: [id number] - LIPIDOrder Info: [id number] - TSH Performed By: #### L 100.0100, L500.4050 #### [facility] [address] [place], [address] Sodium [Moles/Vol] 139 mmol/L Normal 133-145 [facility] Comment on above: Order Comment: Order Date: 11/15/24Order Info: [id number] - CMPOrder Info: [id number] - LIPIDOrder Info: [id number] - TSH Performed By: #### L 100.0100, L500.4050 #### [facility] [address] [place], [address] T PROT 6.8 g/dL Normal 5.9-8.4 [facility] Comment on above: Order Comment: Order Date: 11/15/24Order Info: [id number]- - CMPOrder Info: [id number] - LIPIDOrder Info: [id number] - TSH Performed By: #### L 100.0100, L500.4050 #### [facility] [address] [place], [address] Urea nitrogen [Mass/Vol] 13 mg/dL Normal 4-19 [facility] Comment on above: Order Comment: Order Date: 11/15/24Order Info: [id number] - CMPOrder Info: [id number] - LIPIDOrder Info: [id number] - TSH Performed By: #### L 100.0100, L500.4050 #### [facility] [address] [place], [address] Eosinophil percentageOrdered By: Keri Pollard on 11-15-2024 Eosinophils/100 WBC (Bld) 1.2 % 0-5 [facility] Erythrocyte distribution wid th ratioOrdered By: Keri Pollard on 11-15-2024 Erythrocyte distribution width (RBC) [Ratio] 13.2 % 11.6-14.6 [facility] Erythrocyte distribution wid th standard deviationOrdered By: Keri Pollard on 11-15-2024 Erythrocyte distribution width (RBC) [Ratio] 40.9 fl 35.1-43.9 [facility] Glomerular filtration rate ( GFR) estimation/1.73 sq m using serum, plasma, or whole bOrdered By: Keri Pollard on 11-15-2024 GFR/1.73 sq M.predicted among non-blacks MDRD (S/P/Bld) [Vol rate/Area] 80 mL/min/{1.73_m2} >60 [facility] Comment on above: mL/min/1.73m2 CKD-EP I Creatinine Equation (2020) Hematocrit Auto (Bld) [Volum e fraction]Ordered By: Keri Pollard on 11-15-2024 Hematocrit (Bld) [Volume fraction] 42.7 % 37-47 [facility] Hemoglobin A1con 11-15-2024 HbA1c (Bld) [Mass fraction] 5.8 % High <=5.6 [facility] Comment on above: Order Comment: Order Date: 11/15/24Order Info: [id number] - A1C Result Comment: Norm al < 5.7 % Prediabetic 5.7 - 6.4 % Diabetic >or= 6.5 % Please note range changes. Performed By: #### L 100.0100, L500.4050 #### [facility] [address] [place] [address]. [place], [address] Hemoglobin A1c percentageOrd ered By: Keri Pollard on 11-15-2024 HbA1c (Bld) [Mass fraction] 5.8 % High <5.7 [facility] Comment on above: Normal < 5.7 % Predi abetic 5.7 - 6.4 % Diabetic >or= 6.5 % Please note range changes. Hemoglobin measurementOrdere d By: Keri Pollard on 11-15-2024 Hemoglobin (Bld) [Mass/Vol] 13.8 g/dL 12.0-15.0 [facility] Immature granulocytes/100 WB C Auto (Bld)Ordered By: Keri Pollard on 11-15-2024 Immature granulocytes/100 WBC (Bld) 0.300 % 0.0-0.9 [facility] Comment on above: IG% - Immature Granu locytes (promyelocytes, myelocytes and metamyelocytes) > 1% indicates that a LEFT SHIFT is Present. LDL calc ser/plasOrdered By: Keri Pollard on 11-15-2024 Cholesterol in LDL [Mass/Vol] 68 mg/dL [facility] Comment on above: Ngkyvqvdmu=046-805 m g/dL & Higher Nlyj=575 mg/dL or greater Laboratory - Chemistry and C hemistry - challengeOrdered By: Keri Pollard on 11-15-2024 AST [Catalytic activity/Vol] 22 U/L <32 [facility] Lipid Profileon 11-15-2024 CHOL:HDL 2.08 Normal [facility] Comment on above: Order Comment: Order Date: 11/15/24Order Info: [id number] - CMPOrder Info: [id number] - LIPIDOrder Info: [id number] - TSH Performed By: #### L 100.0100, L500.4050 #### [facility] [address] [place], [address] Cholesterol [Mass/Vol] 158 mg/dL Normal <=200 [facility] Comment on above: Order Comment: Order Date: 11/15/24Order Info: [id number] - CMPOrder Info: [id number] - LIPIDOrder Info: [id number] - TSH Result Comment: Chol esterol level, Desirable <200 mg/dL Borderline high cholesterol 200-239 mg/dL High cholesterol >=240 mg/dL Recommendations of the NCEP Adult Treatment Panel for the following risk-cutoff thresholds for the [place] population. Performed By: #### L 100.0100, L500.4050 #### [facility] [address] [place], [address] Cholesterol in HDL [Mass/Vol] 76 mg/dL Normal [facility] Comment on above: Order Comment: Order Date: 11/15/24Order Info: [id number] - CMPOrder Info: [id number] - LIPIDOrder Info: [id number] - TSH Result Comment: [place]om[place] onal Cholesterol Education Program (NCEP) guidelines: <40 mg/dL: Low HDL-cholesterol (major risk factor for CHD) >= 60 mg/dL: High HDL-cholesterol (negative risk factor for CHD) HDL-cholesterol is affected by a number of factors, e.g. smoking, exercise, hormones, sex and age. Performed By: #### L 100.0100, L500.4050 #### [facility] [address] [place], [address] Cholesterol in LDL [Mass/Vol] 68 mg/dL Normal [facility] Comment on above: Order Comment: Order Date: 11/15/24Order Info: [id number] - CMPOrder Info: [id number] - LIPIDOrder Info: [id number] - TSH Result Comment: Bord kfgaee=244-747 mg/dL Higher Erfp=425 mg/dL or greater Performed By: #### L 100.0100, L500.4050 #### [facility] [address] [place], [address] Cholesterol in VLDL [Mass/Vol] 14 mg/dL Normal 5-40 [facility] Comment on above: Order Comment: Order Date: 11/15/24Order Info: [id number] - CMPOrder Info: [id number] - LIPIDOrder Info: [id number] - TSH Performed By: #### L 100.0100, L500.4050 #### [facility] [address] [place], [address] Triglyceride [Mass/Vol] 68 mg/dL Normal [facility] Comment on above: Order Comment: Order Date: 11/15/24Order Info: [id number] - CMPOrder Info: [id number] - LIPIDOrder Info: [id number] - TSH Result Comment: The drugs N-Acetylcysteine and Metamizole may falsely depress this assay. Normal range: <150 mg/dL Borderline High: 150-199 mg/dL High: 200-499 mg/dL Very High: >500 mg/dL Performed By: #### L 100.0100, L500.4050 #### [facility] [address] [place], [place], [id number] MCV (mean corpuscular volume ) determinationOrdered By: Keri Pollard on 11-15-2024 MCV (RBC) [Entitic vol] 84.4 fL 81-99 [facility] Mean corpuscular hemoglobin (MCH) determinationOrdered By: Keri Pollard on 11-15-2024 MCH (RBC) [Entitic mass] 27.3 pg 27.0-32.0 [facility] Mean corpuscular hemoglobin concentration (MCHC) determinationOrdered By: Keri Pollard on 11-15-2024 MCHC (RBC) [Mass/Vol] 32.3 g/dL 32-36 [facility] Mean platelet volume determi nationOrdered By: Keri Pollard on 11-15-2024 Platelet mean volume (Bld) [Entitic vol] 9.8 fL 6.2-12.0 [facility] Monocyte percentageOrdered B y: Keri Pollard on 11-15-2024 Monocytes/100 WBC (Bld) 5.7 % 0-10 [facility] Neutrophil percentageOrdered By: Keri Pollard on 11-15-2024 Neutrophils/100 WBC (Bld) 69.8 % 47-70 [facility] Nucleated red blood cell per centageOrdered By: Keri Pollard on 11-15-2024 Nucleated RBC/100 WBC (Bld) [Ratio] 0 % 0-5 [facility] Platelet countOrdered By: Mattie Pollard on 11-15-2024 Platelets (Bld) [#/Vol] 313 10*3/uL 150-450 [facility] Potassium measurement (mass/ volume)Ordered By: Keri Pollard on 11-15-2024 Potassium (Unsp spec) [Mass/Vol] 4.7 mmol/L 3.3-5.1 [facility] RBC Auto (Bld) [#/Vol]Ordere d By: Keri Pollard on 11-15-2024 RBC (Bld) [#/Vol] 5.06 10*6/uL 4.2-5.4 [facility] Screening total cholesterol/ high density lipoprotein (HDL) cholesterol ratioOrdered By: Keri Pollard on 11-15-2024 Cholesterol.total/Renu sterol in HDL [Mass ratio] 2.08 {ratio} [facility] Serum creatinine measurement (mass/volume)Ordered By: Keri Pollard on 11-15-2024 Creatinine [Mass/Vol] 0.89 mg/dL 0.70-1.20 [facility] Serum globulin measurementOr dered By: Keri Pollard on 11-15-2024 Globulin (S) [Mass/Vol] 2.8 g/dL 2.2-4.2 [facility] Serum glucose measurement (m ass/volume)Ordered By: Keri Pollard on 11-15-2024 Glucose [Mass/Vol] 90 mg/dL 70-99 [facility] Serum or plasma alanine cox otransferase (ALT) measurementOrdered By: Keri Pollard on 11-15-2024 ALT [Catalytic activity/Vol] 34 U/L <35 [facility] Serum or plasma albumin kayli urement (mass/volume)Ordered By: Keri Polladr on 11-15-2024 Albumin [Mass/Vol] 4.0 g/dL 3.5-5.0 [facility] Serum or plasma albumin/glob ulin mass ratioOrdered By: Keri Pollard on 11-15-2024 Albumin/Globulin [Mass ratio] 1.4 {ratio} 0.9-2.4 [facility] Serum or plasma alkaline zee sphatase measurementOrdered By: Keri Pollard on 11-15-2024 ALP [Catalytic activity/Vol] 67 U/L 35-104 [facility] Serum or plasma calcium kayli urement (mass/volume)Ordered By: Keri Pollard on 11-15-2024 Calcium [Mass/Vol] 9.3 mg/dL 7.6-11.0 [facility] Serum or plasma cholesterol in HDL measurement (mass/volume)Ordered By: Keri Pollard on 11-15-2024 Cholesterol in HDL [Mass/Vol] 76 mg/dL >40 [facility] Comment on above: National Cholesterol Education Program (NCEP) guidelines:<40 mg/dL: Low HDL-cholesterol (major risk factor for CHD)>= 60 mg/dL: High HDL-cholesterol (negative risk factor for CHD)HDL-cholesterol is affected by a number of factors, e.g. smoking, exercise, hormones, sex and age. Serum or plasma cholesterol measurement (mass/volume)Ordered By: Keri Pollard on 11-15-2024 Cholesterol [Mass/Vol] 158 mg/dL <201 [facility] Comment on above: Cholesterol level, D esirable <200 mg/dLBorderline high cholesterol 200-239 mg/dLHigh cholesterol >=240 mg/dLRecommendations of the NCEP Adult Treatment Panel for the following risk-cutoff thresholds for the [place] population. Serum or plasma urea nitroge n measurement (mass/volume)Ordered By: Keri Pollard on 11-15-2024 Urea nitrogen [Mass/Vol] 13 mg/dL 4-19 [facility] Sodium levelOrdered By: Keri Pollard on 11-15-2024 Sodium [Moles/Vol] 139 mmol/L 133-145 [facility] TSH DL <= 0.005 mIU/L QnOrde red By: Keri Polalrd on 11-15-2024 TSH Qn 0.455 uIU/mL 0.300-4.200 [facility] Thyroid Stim Hormone (TSH)on 11-15-2024 TSH 0.455 uIU/mL Normal 0.300-4.200 [facility] Comment on above: Order Comment: Order Date: 11/15/24Order Info: [id number] - CMPOrder Info: [id number] - LIPIDOrder Info: [id number] - TSH Performed By: #### L 100.0100, L500.4050 #### [facility] [address] [place], [place], [id number] Total proteinOrdered By: Thor Pollard on 11-15-2024 Protein [Mass/Vol] 6.8 g/dL 5.9-8.4 [facility] Triglycerides measurementOrd ered By: Keri Pollard on 11-15-2024 Triglyceride [Mass/Vol] 68 mg/dL <199 [facility] Comment on above: The drugs N-Acetylcy steine and Metamizole may falsely depress this assay. Normal range: <150 mg/dLBorderline High: 150-199 mg/dLHigh: 200-499 mg/dLVery High: >500 mg/dL Vitamin D,25 Hydroxyon 11-15 Vitamin D 25-OH 26.2 ng/mL Low 30-100 [facility] Comment on above: Order Comment: Order Date: 11/15/24Order Info: [id number] - CMPOrder Info: [id number] - LIPIDOrder Info: [id number] - TSH Result Comment: Ileana min D Status Deficiency: <20 ng/mL (50nmol/L) Insufficiency: 20-30 ng/mL (50-75 nmol/L) Sufficiency: 30-100 ng/mL (75-250 nmol/L) Toxicity: >100 ng/mL (>250 nmol/L) Performed By: #### L 100.0100, L500.4050 #### [facility] [place], [address] White blood cell (WBC) count Ordered By: Keri Pollard on 11-15-2024 WBC (Bld) [#/Vol] 9.0 10*3/uL 4.4-11.0 [facility] Absolute lymphocyte countOrd ered By: Theresa Carvajal on 11-03-2024 Lymphocytes Auto (Unsp spec) [#/Vol] 2.30 10*3/uL 0.83-4.51 [facility] Absolute neutrophil countOrd ered By: Thersea Carvajal on 11-03-2024 Neutrophils (Bld) [#/Vol] 7.7 10*3/uL 2.0-7.7 [facility] Anion gap in Serum or Plasma Ordered By: Theresa Carvajal on 11-03-2024 Anion gap [Moles/Vol] 12 mmol/L 5-15 [facility] Automated lymphocyte count a s percentage of total leukocytesOrdered By: Theresa Carvajal on 11-03-2024 Lymphocytes/100 WBC Auto (Unsp spec) 21.2 % 19-41 [facility] BUN/creatinine ratioOrdered By: Theresa Carvajal on 11-03-2024 Urea nitrogen/Creatinine [Mass ratio] 17.1 mg/mg 10- [facility] Basophil percentageOrdered B y: Theresa Carvajal on 11-03-2024 Basophils/100 WBC (Bld) 0.5 % 0-1 [facility] Bilirubin, totalOrdered By: Theresa Carvajal on 11-03-2024 Bilirubin [Mass/Vol] 0.31 mg/dL 0.00-1.30 [facility] CBC W/Diff, Automatedon 10-16 Absolute Lymph 2.30 X10 3/uL Normal 0.83-4.51 [facility] Comment on above: Performed By: #### L 100.0100, L500.4050 #### [facility] [address] [place], [address] Absolute Neut 7.7 X10 3/uL Normal 2.0-7.7 [facility] Comment on above: Performed By: #### L 100.0100, L500.4050 #### [facility] [address] [place], [address] Basophils/100 WBC (Bld) 0.5 % Normal 0-1 [facility] Comment on above: Performed By: #### L 100.0100, L500.4050 #### [facility] [address] [place], [address] Eosinophils/100 WBC (Bld) 1.0 % Normal 0-5 [facility] Comment on above: Performed By: #### L 100.0100, L500.4050 #### [facility] [address] [place], [address] Erythrocyte distribution width (RBC) [Ratio] 13.3 % Normal 11.6-14.6 [facility] Comment on above: Performed By: #### L 100.0100, L500.4050 #### [facility] [address] [place], [address] Hematocrit (Bld) [Volume fraction] 44.4 % Normal 37-47 [facility] Comment on above: Performed By: #### L 100.0100, L500.4050 #### [facility] [address] [place], [address] Hemoglobin (Bld) [Mass/Vol] 14.2 g/dL Normal 12.0-15.0 [facility] Comment on above: Performed By: #### L 100.0100, L500.4050 #### [facility] [address] [place], [address] IG% 0.400 Normal 0.0-0.9 [facility] Comment on above: Result Comment: IG% - Immature Granulocytes (promyelocytes, myelocytes and metamyelocytes) > 1% indicates that a LEFT SHIFT is Present. Performed By: #### L 100.0100, L500.4050 #### [facility] [address] [place], [address] Lymphocytes/100 WBC (Bld) 21.2 % Normal 19-41 [facility] Comment on above: Performed By: #### L 100.0100, L500.4050 #### [facility] [address] [place], [address] MCH (RBC) [Entitic mass] 26.8 pg Low 27.0-32.0 [facility] Comment on above: Performed By: #### L 100.0100, L500.4050 #### [facility] [address] [place], [address] MCHC (RBC) [Mass/Vol] 32.0 g/dL Normal 32-36 [facility] Comment on above: Performed By: #### L 100.0100, L500.4050 #### [facility] [address] [place], [address] MCV (RBC) [Entitic vol] 83.8 fL Normal 81-99 [facility] Comment on above: Performed By: #### L 100.0100, L500.4050 #### [facility] [address] [place], [address] Monocytes/100 WBC (Bld) 6.1 % Normal 0-10 [facility] Comment on above: Performed By: #### L 100.0100, L500.4050 #### [facility] [address] [place], [address] Neutrophils/100 WBC (Bld) 70.8 % High 47-70 [facility] Comment on above: Performed By: #### L 100.0100, L500.4050 #### [facility] [address] [place], [address] Nucleated RBC (Bld) [#/Vol] 0 10*3/uL Normal 0-5 [facility] Comment on above: Performed By: #### L 100.0100, L500.4050 #### [facility] [address] [place], [address] Platelet mean volume (Bld) [Entitic vol] 10.1 fL Normal 6.2-12.0 [facility] Comment on above: Performed By: #### L 100.0100, L500.4050 #### [facility] [address] [place], [address] Platelets (Bld) [#/Vol] 346 10*3/uL Normal 150-450 [facility] Comment on above: Performed By: #### L 100.0100, L500.4050 #### [facility] [address] [place], [address] RBC (Bld) [#/Vol] 5.30 10*6/uL Normal 4.2-5.4 [facility] Comment on above: Performed By: #### L 100.0100, L500.4050 #### [facility] [address] [place], [address] RDW SD 40.9 fl Normal 35.1-43.9 [facility] Comment on above: Performed By: #### L 100.0100, L500.4050 #### [facility] [address] [place], [address] WBC (Bld) [#/Vol] 10.8 10*3/uL Normal 4.4-11.0 [facility] Comment on above: Performed By: #### L 100.0100, L500.4050 #### [facility] [address] [place], [address] Carbon dioxide, total [Moles /volume] in Central venous bloodOrdered By: Theresa Carvajal on 11-03-2024 CO2 [Moles/Vol] 23.6 mmol/L 21.0-32.0 [facility] Chloride assayOrdered By: Ricardo Carvajal on 11-03-2024 Chloride [Moles/Vol] 102 mmol/L 98-108 [facility] Comprehensive Metabolic Prof ilon 11-03-2024 Albumin [Mass/Vol] 4.1 g/dL Normal 3.5-5.0 [facility] Comment on above: Performed By: #### L 100.0100, L500.4050 #### [facility] [address] [place], [address] Albumin/Globulin [Mass ratio] 1.4 {ratio} Normal 0.9-2.4 [facility] Comment on above: Performed By: #### L 100.0100, L500.4050 #### [facility] [address] [place], [address] ALK PHOS 67 U/L Normal 35-104 [facility] Comment on above: Performed By: #### L 100.0100, L500.4050 #### [facility] [address] [place], [address] ALT [Catalytic activity/Vol] 29 U/L Normal <=34 [facility] Comment on above: Performed By: #### L 100.0100, L500.4050 #### [facility] [address] [place], [address] AST [Catalytic activity/Vol] 23 U/L Normal <=31 [facility] Comment on above: Performed By: #### L 100.0100, L500.4050 #### [facility] [address] [place], [address] Bilirubin [Mass/Vol] 0.31 mg/dL Normal 0.00-1.30 [facility] Comment on above: Performed By: #### L 100.0100, L500.4050 #### [facility] [address] [place], [address] BUN/CRE 17.1 RATIO Normal 10-20 [facility] Comment on above: Performed By: #### L 100.0100, L500.4050 #### [facility] [address] [place], [address] Calcium [Mass/Vol] 9.4 mg/dL Normal 7.6-11.0 [facility] Comment on above: Performed By: #### L 100.0100, L500.4050 #### [facility] [address] [place], [address] Chloride [Moles/Vol] 102 mmol/L Normal 98-108 [facility] Comment on above: Performed By: #### L 100.0100, L500.4050 #### [facility] [address] [place], [address] CO2 [Moles/Vol] 23.6 mmol/L Normal 21.0-32.0 [facility] Comment on above: Performed By: #### L 100.0100, L500.4050 #### [facility] [address] [place], [address] Creatinine [Mass/Vol] 0.94 mg/dL Normal 0.70-1.20 [facility] Comment on above: Performed By: #### L 100.0100, L500.4050 #### [facility] [address] [place], [address] GAP 12 Normal 5-15 [facility] Comment on above: Performed By: #### L 100.0100, L500.4050 #### [facility] [address] [place], [address] GFR/1.73 sq M.predicted among non-blacks MDRD (S/P/Bld) [Vol rate/Area] 75 mL/min/{1.73_m2} Normal >60 [facility] Comment on above: Result Comment: mL/m in/1.73m2 CKD-EPI Creatinine Equation (2020) Performed By: #### L 100.0100, L500.4050 #### [facility] [address] [place], [address] Globulin (S) [Mass/Vol] 2.9 g/dL Normal 2.2-4.2 [facility] Comment on above: Performed By: #### L 100.0100, L500.4050 #### [facility] [address] [place], [address] Glucose [Mass/Vol] 92 mg/dL Normal 70-99 [facility] Comment on above: Performed By: #### L 100.0100, L500.4050 #### [facility] [address] [place], [address] Potassium [Moles/Vol] 4.5 mmol/L Normal 3.3-5.1 [facility] Comment on above: Performed By: #### L 100.0100, L500.4050 #### [facility] [address] [place], [address] Sodium [Moles/Vol] 138 mmol/L Normal 133-145 [facility] Comment on above: Performed By: #### L 100.0100, L500.4050 #### [facility] [address] [place], [address] T PROT 7.0 g/dL Normal 5.9-8.4 [facility] Comment on above: Performed By: #### L 100.0100, L500.4050 #### [facility] [address] [place], [address] Urea nitrogen [Mass/Vol] 16 mg/dL Normal 4-19 [facility] Comment on above: Performed By: #### L 100.0100, L500.4050 #### [facility] [address] [place], [address] Eosinophil percentageOrdered By: Theresa Carvajal on 11-03-2024 Eosinophils/100 WBC (Bld) 1.0 % 0-5 [facility] Erythrocyte distribution wid th ratioOrdered By: [facility] Wei on 11-03-2024 Erythrocyte distribution width (RBC) [Ratio] 13.3 % 11.6-14.6 [facility] Erythrocyte distribution wid th standard deviationOrdered By: [facility] Wei on 11-03-2024 Erythrocyte distribution width (RBC) [Ratio] 40.9 fl 35.1-43.9 [facility] Glomerular filtration rate ( GFR) estimation/1.73 sq m using serum, plasma, or whole bOrdered By: Theresa Carvajal on 11-03-2024 GFR/1.73 sq M.predicted among non-blacks MDRD (S/P/Bld) [Vol rate/Area] 75 mL/min/{1.73_m2} >60 [facility] Comment on above: mL/min/1.73m2 CKD-EP I Creatinine Equation (2020) Hematocrit Auto (Bld) [Volum e fraction]Ordered By: Theresa Carvajal on 11-03-2024 Hematocrit (Bld) [Volume fraction] 44.4 % 37-47 [facility] Hemoglobin measurementOrdere d By: Theresa Carvajal on 11-03-2024 Hemoglobin (Bld) [Mass/Vol] 14.2 g/dL 12.0-15.0 [facility] Immature granulocytes/100 WB C Auto (Bld)Ordered By: Theresa Carvajal on 11-03-2024 Immature granulocytes/100 WBC (Bld) 0.400 % 0.0-0.9 [facility] Comment on above: IG% - Immature Granu locytes (promyelocytes, myelocytes and metamyelocytes) > 1% indicates that a LEFT SHIFT is Present. Laboratory - Chemistry and C hemistry - challengeOrdered By: Theresa Carvajal on 11-03-2024 AST [Catalytic activity/Vol] 23 U/L <32 [facility] MCV (mean corpuscular volume ) determinationOrdered By: Theresa Carvajal on 11-03-2024 MCV (RBC) [Entitic vol] 83.8 fL 81-99 [facility] Mean corpuscular hemoglobin (MCH) determinationOrdered By: Theresa Carvajal on 11-03-2024 MCH (RBC) [Entitic mass] 26.8 pg Low 27.0-32.0 [facility] Mean corpuscular hemoglobin concentration (MCHC) determinationOrdered By: Theresa Carvajal on 11-03-2024 MCHC (RBC) [Mass/Vol] 32.0 g/dL 32-36 [facility] Mean platelet volume determi nationOrdered By: Theresa Carvajal on 11-03-2024 Platelet mean volume (Bld) [Entitic vol] 10.1 fL 6.2-12.0 [facility] Monocyte percentageOrdered B y: Theresa Carvajal on 11-03-2024 Monocytes/100 WBC (Bld) 6.1 % 0-10 [facility] Neutrophil percentageOrdered By: Theresa Carvajal on 11-03-2024 Neutrophils/100 WBC (Bld) 70.8 % High 47-70 [facility] Nucleated red blood cell per centageOrdered By: Theresa Carvajal on 11-03-2024 Nucleated RBC/100 WBC (Bld) [Ratio] 0 % 0-5 [facility] Platelet countOrdered By: Ricardo Carvajal on 11-03-2024 Platelets (Bld) [#/Vol] 346 10*3/uL 150-450 [facility] Potassium measurement (mass/ volume)Ordered By: Theresa Carvajal on 11-03-2024 Potassium (Unsp spec) [Mass/Vol] 4.5 mmol/L 3.3-5.1 [facility] RBC Auto (Bld) [#/Vol]Ordere d By: Theresa Carvajal on 11-03-2024 RBC (Bld) [#/Vol] 5.30 10*6/uL 4.2-5.4 [facility] Serum creatinine measurement (mass/volume)Ordered By: Theresa Carvajal on 11-03-2024 Creatinine [Mass/Vol] 0.94 mg/dL 0.70-1.20 [facility] Serum globulin measurementOr dered By: Theresa Carvajal on 11-03-2024 Globulin (S) [Mass/Vol] 2.9 g/dL 2.2-4.2 [facility] Serum glucose measurement (m ass/volume)Ordered By: Theresa Carvajal on 11-03-2024 Glucose [Mass/Vol] 92 mg/dL 70-99 [facility] Serum or plasma alanine cox otransferase (ALT) measurementOrdered By: Theresa Carvajal on 11-03-2024 ALT [Catalytic activity/Vol] 29 U/L <35 [facility] Serum or plasma albumin kayli urement (mass/volume)Ordered By: Theresa Carvajal on 11-03-2024 Albumin [Mass/Vol] 4.1 g/dL 3.5-5.0 [facility] Serum or plasma albumin/glob ulin mass ratioOrdered By: Theresa Carvajal on 11-03-2024 Albumin/Globulin [Mass ratio] 1.4 {ratio} 0.9-2.4 [facility] Serum or plasma alkaline zee sphatase measurementOrdered By: Theresa Carvajal on 11-03-2024 ALP [Catalytic activity/Vol] 67 U/L 35-104 [facility] Serum or plasma calcium kayli urement (mass/volume)Ordered By: Theresa Carvajal on 06-20-2025 Calcium [Mass/Vol] 9.4 mg/dL 7.6-11.0 [facility] Serum or plasma urea nitroge n measurement (mass/volume)Ordered By: Theresa Carvajal on 11-03-2024 Urea nitrogen [Mass/Vol] 16 mg/dL 4-19 [facility] Sodium levelOrdered By: Kalpesh Carvajal on 11-03-2024 Sodium [Moles/Vol] 138 mmol/L 133-145 [facility] Total proteinOrdered By: Kar Carvajal on 11-03-2024 Protein [Mass/Vol] 7.0 g/dL 5.9-8.4 [facility] White blood cell (WBC) count Ordered By: Theresa Carvajal on 11-03-2024 WBC (Bld) [#/Vol] 10.8 10*3/uL 4.4-11.0 [facility] Thyroidon 02-16-2024 Thyroid [facility] Imaging Services [address] [place] [id number] Thyroid MR#: [id number] Acct: [id number] Name: ANDIE MEJIA Rep #: [id number] : [id number] F [id number] From: Clint Mancuso MD PCP: Dr. Keri Pollard MD Status: [facility] Study: Thyroid Date of Exam: 02/16/24 Exam# [id number] Ordering Dr: Keri Pollard MD [id number] STUDY: THYROID ULTRASOUND REASON FOR EXAM: Female, 48 years old. NODULES TECHNIQUE: Ultrasound evaluation of the thyroid was performed with real-time and static hampton-scale imaging. COMPARISON: 03/10/2023 FINDINGS: RIGHT LOBE: The right lobe of the thyroid gland measures 5.4 x 2.5 x 2.2 cm. There is a heterogeneous echotexture. The entire thyroid gland is diffusely enlarged with innumerable heterogeneous nodules with no intervening normal parenchyma consistent with a multinodular goiter. LEFT LOBE: The left lobe of the thyroid gland measures 6.1 x 2.6 x 2.5 cm. There is a homogeneous echotexture. The entire thyroid gland is diffusely enlarged with innumerable heterogeneous nodules with no intervening normal parenchyma consistent with multinodular goiter. ISTHMUS: The isthmus measures 10 mm thick . The regional lymph nodes are normal. US/Thyroid IMPRESSION: No change in multinodular goiter. Electronically Signed: Clint Mancuso MD at 12:53 EDT , CC: Dr. Keri Pollard MD Tiltrotor Crew Chief: Signed Normal [facility] Thyroglobulin w/Anti-TG ABon 02-09-2024 Anti-TG AB < 1.0 Normal 0.0-0.9 [facility] Comment on above: Order Comment: NOE Akins ADD A1C TPO ATAB TO BLOOD DRAWN 02/04/24 PER Result Comment: Thyr oglobulin Antibody measured by [employer] [employer] It should be noted that the presence of thyroglobulin antibodies may not be pathogenic nor diagnostic, especially at very low levels. The assay specialty transformer assembler has found that four percent of individuals without evidence of thyroid disease or autoimmunity will have positive TgAb levels up to 4 IU/mL. Performed By: #### L 501.9985, L3300.6820, L3300.6900 #### [facility] [place], [address] THYROGLOB QUANT 282.9 ng/mL High 1.5-38.5 [facility] Comment on above: Order Comment: NOE Akins ADD A1C TPO ATAB TO BLOOD DRAWN 02/04/24 PER Result Comment: Acco rding to the National Academy of Clinical Biochemistry, the reference interval for Thyroglobulin (TG) should be related to euthyroid patients and not for patients who underwent thyroidectomy. TG reference intervals for these patients depend on the residual mass of the thyroid tissue left after surgery. Establishing a post-operative baseline is recommended. The assay limit of quantitation is 0.1 ng/mL Thyroglobulin measured by [employer] [employer] Performed By: #### L 501.9985, L3300.6820, L3300.6900 #### [facility] [address] [place], [address] Thyroid Peroxidase ABon 01-16 THYR PEROX AB < 9 Normal 0-34 [facility] Comment on above: Order Comment: NOE Akins ADD A1C TPO ATAB TO BLOOD DRAWN 02/04/24 PER Result Comment: Perf ormed at: [facility] [address] [id number] Needle Punch Operator: Ankush Valle PhD, Phone: [phone] Performed By: #### L 501.9985, L3300.6820, L3300.6900 #### [facility] [address] [place], [address] Hemoglobin A1con 02-08-2024 HbA1c (Bld) [Mass fraction] 5.9 % High 3.8-5.6 [facility] Comment on above: Order Comment: NOE Akins ADD A1C TPO ATAB TO BLOOD DRAWN 02/04/24 PER Result Comment: Norm al < 5.7 % Prediabetic 5.7 - 6.4 % Diabetic >or= 6.5 % Please note range changes. Performed By: #### L 501.9985, L3300.6820, L3300.6900 #### [facility] [address] [place], [place], [address] CBC W/Diff, Automatedon 01-16 Absolute Lymph 2.53 X10 3/uL Normal 0.83-4.51 [facility] Comment on above: Order Comment: Order Date: 02/04/24Order Info: 0184-1 - CBCD Performed By: #### L 100.0100, L500.4050 #### [facility] [address] [place], [address] Absolute Neut 4.9 X10 3/uL Normal 2.0-7.7 [facility] Comment on above: Order Comment: Order Date: 02/04/24Order Info: 0184-1 - CBCD Performed By: #### L 100.0100, L500.4050 #### [facility] [address] [place], [address] Basophils/100 WBC (Bld) 0.5 % Normal 0-1 [facility] Comment on above: Order Comment: Order Date: 02/04/24Order Info: 0184-1 - CBCD Performed By: #### L 100.0100, L500.4050 #### [facility] [address] [place], [address] Eosinophils/100 WBC (Bld) 1.6 % Normal 0-5 [facility] Comment on above: Order Comment: Order Date: 02/04/24Order Info: 0184-1 - CBCD Performed By: #### L 100.0100, L500.4050 #### [facility] [address] [place], [address] Erythrocyte distribution width (RBC) [Ratio] 13.2 % Normal 11.6-14.6 [facility] Comment on above: Order Comment: Order Date: 02/04/24Order Info: 0184-1 - CBCD Performed By: #### L 100.0100, L500.4050 #### [facility] [address] [place], [address] Hematocrit (Bld) [Volume fraction] 42.9 % Normal 37-47 [facility] Comment on above: Order Comment: Order Date: 02/04/24Order Info: 0184-1 - CBCD Performed By: #### L 100.0100, L500.4050 #### [facility] [address] [place], [address] Hemoglobin (Bld) [Mass/Vol] 13.7 g/dL Normal 12.0-15.0 [facility] Comment on above: Order Comment: Order Date: 02/04/24Order Info: 018- - CBCD Performed By: #### L 100.0100, L500.4050 #### [facility] [address] [place], [address] IG% 0.500 Normal 0.0-0.9 [facility] Comment on above: Order Comment: Order Date: 02/04/24Order Info: 183- - CBCD Result Comment: IG% - Immature Granulocytes (promyelocytes, myelocytes and metamyelocytes) > 1% indicates that a LEFT SHIFT is Present. Performed By: #### L 100.0100, L500.4050 #### [facility] [address] [place], [address] Lymphocytes/100 WBC (Bld) 30.5 % Normal 19-41 [facility] Comment on above: Order Comment: Order Date: 02/04/24Order Info: 183- - CBCD Performed By: #### L 100.0100, L500.4050 #### [facility] [address] [place], [address] MCH (RBC) [Entitic mass] 27.0 pg Normal 27.0-32.0 [facility] Comment on above: Order Comment: Order Date: 02/04/24Order Info: 018- - CBCD Performed By: #### L 100.0100, L500.4050 #### [facility] [address] [place], [address] MCHC (RBC) [Mass/Vol] 31.9 g/dL Low 32-36 [facility] Comment on above: Order Comment: Order Date: 02/04/24Order Info: 018- - CBCD Performed By: #### L 100.0100, L500.4050 #### [facility] [address] [place], [address] MCV (RBC) [Entitic vol] 84.4 fL Normal 81-99 [facility] Comment on above: Order Comment: Order Date: 02/04/24Order Info: 0184-1 - CBCD Performed By: #### L 100.0100, L500.4050 #### [facility] [address] [place], [address] Monocytes/100 WBC (Bld) 7.5 % Normal 0-10 [facility] Comment on above: Order Comment: Order Date: 02/04/24Order Info: 0184-1 - CBCD Performed By: #### L 100.0100, L500.4050 #### [facility] [address] [place], [address] Neutrophils/100 WBC (Bld) 59.4 % Normal 47-70 [facility] Comment on above: Order Comment: Order Date: 02/04/24Order Info: 0184- - CBCD Performed By: #### L 100.0100, L500.4050 #### [facility] [address] [place], [address] Nucleated RBC (Bld) [#/Vol] 0 10*3/uL Normal 0-5 [facility] Comment on above: Order Comment: Order Date: 02/04/24Order Info: 0184-1 - CBCD Performed By: #### L 100.0100, L500.4050 #### [facility] [address] [place], [address] Platelet mean volume (Bld) [Entitic vol] 9.9 fL Normal 6.2-12.0 [facility] Comment on above: Order Comment: Order Date: 02/04/24Order Info: 0184-1 - CBCD Performed By: #### L 100.0100, L500.4050 #### [facility] [address] [place], [address] Platelets (Bld) [#/Vol] 316 10*3/uL Normal 150-450 [facility] Comment on above: Order Comment: Order Date: 02/04/24Order Info: 183- - CBCD Performed By: #### L 100.0100, L500.4050 #### [facility] [address] [place], [address] RBC (Bld) [#/Vol] 5.08 10*6/uL Normal 4.2-5.4 [facility] Comment on above: Order Comment: Order Date: 02/04/24Order Info: 183- - CBCD Performed By: #### L 100.0100, L500.4050 #### [facility] [address] [place], [address] RDW SD 40.7 fl Normal 35.1-43.9 [facility] Comment on above: Order Comment: Order Date: 02/04/24Order Info: 183- - CBCD Performed By: #### L 100.0100, L500.4050 #### [facility] [address] [place], [address] WBC (Bld) [#/Vol] 8.3 10*3/uL Normal 4.4-11.0 [facility] Comment on above: Order Comment: Order Date: 02/04/24Order Info: 018- - CBCD Performed By: #### L 100.0100, L500.4050 #### [facility] [address] [place], [address] Comprehensive Metabolic Prof ilon 02-04-2024 Albumin [Mass/Vol] 3.5 g/dL Normal 3.2-5.0 [facility] Comment on above: Order Comment: Order Date: 02/04/24Order Info: 0786-1 - CMPOrder Info: 3016-3 - TSHOrder Info: 3024-7 - T4F Performed By: #### L 100.0100, L500.4050 #### [facility] [address] [place], [address] Albumin/Globulin [Mass ratio] 1.0 {ratio} Normal 0.9-2.4 [facility] Comment on above: Order Comment: Order Date: 02/04/24Order Info: 0786-1 - CMPOrder Info: 3016-3 - TSHOrder Info: 3024-7 - T4F Performed By: #### L 100.0100, L500.4050 #### [facility] [address] [place], [address] ALK P 65 U/L Normal 45-117 [facility] Comment on above: Order Comment: Order Date: 02/04/24Order Info: 86-1 - CMPOrder Info: 6-3 - TSHOrder Info: 3024-7 - T4F Performed By: #### L 100.0100, L500.4050 #### [facility] [address] [place], [address] ALT [Catalytic activity/Vol] 23 U/L Normal 13-56 [facility] Comment on above: Order Comment: Order Date: 02/04/24Order Info: 785-1 - CMPOrder Info: 6-3 - TSHOrder Info: 3024-7 - T4F Performed By: #### L 100.0100, L500.4050 #### [facility] [address] [place], [address] AST [Catalytic activity/Vol] 17 U/L Normal 15-37 [facility] Comment on above: Order Comment: Order Date: 02/04/24Order Info: 86-1 - CMPOrder Info: 3016-3 - TSHOrder Info: 3024-7 - T4F Performed By: #### L 100.0100, L500.4050 #### [facility] [address] [place], [address] Bilirubin [Mass/Vol] 0.30 mg/dL Normal 0.20-1.00 [facility] Comment on above: Order Comment: Order Date: 02/04/24Order Info: 0786-1 - CMPOrder Info: 3016-3 - TSHOrder Info: 3024-7 - T4F Result Comment: For patients on eltrombopag therapy, use of Dimension Catron TBIL is not recommended. Performed By: #### L 100.0100, L500.4050 #### [facility] [address] [place], [address] BUN/CRE 13.9 RATIO Normal 10-20 [facility] Comment on above: Order Comment: Order Date: 02/04/24Order Info: 0786-1 - CMPOrder Info: 3016-3 - TSHOrder Info: 3024-7 - T4F Performed By: #### L 100.0100, L500.4050 #### [facility] [address] [place], [address] CA,Total 9.1 mg/dL Normal 8.5-10.1 [facility] Comment on above: Order Comment: Order Date: 02/04/24Order Info: 0786-1 - CMPOrder Info: 3016-3 - TSHOrder Info: 3024-7 - T4F Performed By: #### L 100.0100, L500.4050 #### [facility] [address] [place], [address] Chloride [Moles/Vol] 111 mmol/L High 98-107 [facility] Comment on above: Order Comment: Order Date: 02/04/24Order Info: 0786-1 - CMPOrder Info: 3016-3 - TSHOrder Info: 3024-7 - T4F Performed By: #### L 100.0100, L500.4050 #### [facility] [address] [place], [address] CO2 [Moles/Vol] 23.0 mmol/L Normal 21.0-32.0 [facility] Comment on above: Order Comment: Order Date: 02/04/24Order Info: 0786-1 - CMPOrder Info: 3016-3 - TSHOrder Info: 3024-7 - T4F Performed By: #### L 100.0100, L500.4050 #### [facility] [address] [place], [address] Creatinine [Mass/Vol] 1.01 mg/dL Normal 0.55-1.02 [facility] Comment on above: Order Comment: Order Date: 02/04/24Order Info: 0786-1 - CMPOrder Info: 3015-3 - TSHOrder Info: 3024-7 - T4F Result Comment: The validity of the calculated GFR GFRAA in patients over 70 years has not been determined. Clinical correlation is essential. Performed By: #### L 100.0100, L500.4050 #### [facility] [address] [place], [address] EST GFR - AA 75 mL/min Normal >60 [facility] Comment on above: Order Comment: Order Date: 02/04/24Order Info: 0786-1 - CMPOrder Info: 3015-3 - TSHOrder Info: 3024-7 - T4F Result Comment: Afri can [place] GFR Calc Performed By: #### L 100.0100, L500.4050 #### [facility] [address] [place], [address] GAP 6 Normal 5-15 [facility] Comment on above: Order Comment: Order Date: 02/04/24Order Info: 0786-1 - CMPOrder Info: 3 - TSHOrder Info: 3024-7 - T4F Performed By: #### L 100.0100, L500.4050 #### [facility] [address] [place], [address] GFR/1.73 sq M.predicted among non-blacks MDRD (S/P/Bld) [Vol rate/Area] 62 mL/min/{1.73_m2} Normal >60 [facility] Comment on above: Order Comment: Order Date: 02/04/24Order Info: 0786-1 - CMPOrder Info: 3 - TSHOrder Info: 3024-7 - T4F Result Comment: Non- GFR Calc Performed By: #### L 100.0100, L500.4050 #### [facility] [address] [place], [address] Globulin (S) [Mass/Vol] 3.4 g/dL Normal 2.2-4.2 [facility] Comment on above: Order Comment: Order Date: 02/04/24Order Info: 86-1 - CMPOrder Info: 3015-3 - TSHOrder Info: 3024-7 - T4F Performed By: #### L 100.0100, L500.4050 #### [facility] [address] [place], [address] Glucose [Mass/Vol] 113 mg/dL High 74-106 [facility] Comment on above: Order Comment: Order Date: 02/04/24Order Info: 785-1 - CMPOrder Info: 3015-3 - TSHOrder Info: 3024-7 - T4F Result Comment: Fast ing Glucose result from 100 to 125 mg/dL suggests IMPAIRED HOMEOSTASIS per A.D.A. criteria. Performed By: #### L 100.0100, L500.4050 #### [facility] [address] [place], [address] Potassium [Moles/Vol] 3.9 mmol/L Normal 3.5-5.1 [facility] Comment on above: Order Comment: Order Date: 02/04/24Order Info: 86-1 - CMPOrder Info: 3016-3 - TSHOrder Info: 3024-7 - T4F Performed By: #### L 100.0100, L500.4050 #### [facility] [address] [place], [address] Sodium [Moles/Vol] 140 mmol/L Normal 136-145 [facility] Comment on above: Order Comment: Order Date: 02/04/24Order Info: 785-1 - CMPOrder Info: 3015-3 - TSHOrder Info: 3024-7 - T4F Performed By: #### L 100.0100, L500.4050 #### [facility] [address] [place], [address] T PROT 6.9 g/dL Normal 6.4-8.2 [facility] Comment on above: Order Comment: Order Date: 02/04/24Order Info: 0786-1 - CMPOrder Info: 3016-3 - TSHOrder Info: 3024-7 - T4F Performed By: #### L 100.0100, L500.4050 #### [facility] [address] [place], [address] Urea nitrogen [Mass/Vol] 14 mg/dL Normal 7-18 [facility] Comment on above: Order Comment: Order Date: 02/04/24Order Info: 0786-1 - CMPOrder Info: 3016-3 - TSHOrder Info: 3024-7 - T4F Performed By: #### L 100.0100, L500.4050 #### [facility] [address] [place], [address] T4 Free Directon 02-04-2024 T4 FREE DIRECT 1.07 ng/dL Normal 0.76-1.46 [facility] Comment on above: Order Comment: Order Date: 02/04/24Order Info: 0786-1 - CMPOrder Info: 3016-3 - TSHOrder Info: 3024-7 - T4F Performed By: #### L 100.0100, L500.4050 #### [facility] [address] [place], [address] Thyroid Stim Hormone (TSH)on 02-04-2024 TSH 0.277 uIU/mL Low 0.358-3.740 [facility] Comment on above: Order Comment: Order Date: 02/04/24Order Info: 0786-1 - CMPOrder Info: 3016-3 - TSHOrder Info: 3024-7 - T4F Performed By: #### L 100.0100, L500.4050 #### [facility] [address] [place], [address] Vitamin D,25 Hydroxyon 02-03 Vitamin D 25-OH 32.6 ng/mL Normal [facility] Comment on above: Order Comment: Order Date: 02/04/24Order Info: [id number] - VITD25 Result Comment: Ileana min D 25(OH) Status Range Deficiency <20 ng/mL (50nmol/L) Insufficiency 20 - 30 ng/mL (50 - 75 nmol/L) Sufficiency 30 - 100 ng/mL (75 - 250 nmol/L) Toxicity >100 ng/mL (>250 nmol/L) Performed By: #### L 100.0100, L500.4050 #### [facility] [address] [place], [address] Absolute lymphocyte countOrd ered By: Keri Pollard on 05-25-2023 Lymphocytes Auto (Unsp spec) [#/Vol] 2.06 10*3/uL 0.83-4.51 [facility] Basophil percentageOrdered B y: Keri Pollard on 05-25-2023 Basophils/100 WBC (Bld) 0.7 % 0-1 [facility] Bilirubin [Mass/Vol] 0.50 mg/dL 0.20-1.00 [facility] Comment on above: For patients on eltr ombopag therapy, use of Dimension Catron TBIL is not recommended. Chloride [Moles/Vol] 112 mmol/L 98-107 [facility] Cholesterol [Mass/Vol] 177 mg/dL <200 [facility] Comment on above: <200 mg/dL Desirable 200-240 mg/dL Borderline >240 mg/dL High Risk Eosinophils/100 WBC (Bld) 1.2 % 0-5 [facility] Glucose [Mass/Vol] 123 mg/dL 74-106 [facility] Comment on above: Fasting Glucose resu lt from 100 to 125 mg/dL suggests IMPAIRED HOMEOSTASIS per A.D.A. criteria. Neutrophils (Bld) [#/Vol] 8.2 10*3/uL 2.0-7.7 [facility] Neutrophils/100 WBC (Bld) 74.0 % 47-70 [facility] Potassium [Moles/Vol] 4.3 mmol/L 3.5-5.1 [facility] Comment on above: Slight Hemolysis, Re sult may be falsely increased. Protein [Mass/Vol] 7.0 g/dL 6.4-8.2 [facility] Sodium [Moles/Vol] 141 mmol/L 136-145 [facility] Triglyceride [Mass/Vol] 124 mg/dL <199 [facility] Comment on above: The drugs N-Acetylcy steine and Metamizole may falsely depress this assay.Serum Triglycerides Reference Interval Normal <150 mg/dL Borderline high 150 - 199 mg/dL High 200 - 499 mg/dL Very High > or = 500 mg/dL WBC (Bld) [#/Vol] 11.1 10*3/uL 4.4-11.0 [facility] Blood erythrocytes count (nu mber/volume)Ordered By: Keri Pollard on 05-25-2023 RBC (Bld) [#/Vol] 5.12 10*6/uL 4.2-5.4 [facility] Blood hemoglobin measurement (mass/volume)Ordered By: Keri Pollard on 05-25-2023 Hemoglobin (Bld) [Mass/Vol] 14.1 g/dL 12.0-15.0 [facility] Blood lymphocytes/100 leukoc ytesOrdered By: Keri Pollard on 05-25-2023 Lymphocytes/100 WBC (Bld) 18.6 % 19-41 [facility] Blood monocytes/100 leukocyt esOrdered By: Keri Pollard on 05-25-2023 Monocytes/100 WBC (Bld) 5.1 % 0-10 [facility] Blood platelet mean volumeOr dered By: Keri Pollard on 05-25-2023 Platelet mean volume (Bld) [Entitic vol] 9.5 fL 6.2-12.0 [facility] Determination of erythrocyte mean corpuscular volume (MCV)Ordered By: Keri Pollard on 05-25-2023 MCV (RBC) [Entitic vol] 89.3 fL 81-99 [facility] Hematocrit Auto (Bld) [Volum e fraction]Ordered By: Keri Pollard on 05-25-2023 Hematocrit (Bld) [Volume fraction] 45.7 % 37-47 [facility] - Chemistry and C hemistry - challengeOrdered By: Keri Pollard on 05-25-2023 ALP [Catalytic activity/Vol] 81 U/L 45-117 [facility] ALT [Catalytic activity/Vol] 27 U/L 13-56 [facility] CO2 [Moles/Vol] 24.0 mmol/L 21.0-32.0 [facility] Globulin (S) [Mass/Vol] 3.7 g/dL 2.2-4.2 [facility] Urea nitrogen/Creatinine [Mass ratio] 12.7 mg/mg 10-20 [facility] - Hematology and Cell countsOrdered By: Keri Pollard on 05-25-2023 Erythrocyte distribution width (RBC) [Entitic vol] 43.6 fL 35.1-43.9 [facility] Erythrocyte distribution width (RBC) [Ratio] 13.2 % 11.6-14.6 [facility] Immature granulocytes/100 WBC (Bld) 0.400 % 0.0-0.9 [facility] Comment on above: IG% - Immature Granu locytes (promyelocytes, myelocytes and metamyelocytes) > 1% indicates that a LEFT SHIFT is Present. MCH (RBC) [Entitic mass] 27.5 pg 27.0-32.0 [facility] Nucleated RBC/100 WBC (Bld) [Ratio] 0 % 0-5 [facility] MCHC Auto (RBC) [Mass/Vol]Or dered By: Keri Pollard on 05-25-2023 MCHC (RBC) [Mass/Vol] 30.9 g/dL 32-36 [facility] No Panel InformationOrdered By: Keri Pollard on 05-25-2023 Estimated GFR (MDRD) Amer 75 mL/min >60 [facility] Comment on above: GFR Calc Estimated GFR (MDRD) Non-Af Amer 62 mL/min >60 [facility] Comment on above: Non- GFR Calc [place] Level 0.40 mmol/L 0.60-1.20 [facility] Thyroid Stimulating Hormone (TSH) 0.69 uIU/mL 0.358-3.74 [facility] Vitamin D 25-Hydroxy 49.9 ng/mL [facility] Comment on above: Vitamin D 25(OH) Sta tus Range Deficiency <20 ng/mL (50nmol/L) Insufficiency 20 - 30 ng/mL (50 - 75 nmol/L) Sufficiency 30 - 100 ng/mL (75 - 250 nmol/L) Toxicity >100 ng/mL (>250 nmol/L) Platelets bldOrdered By: Thor Pollard on 05-25-2023 Platelets (Bld) [#/Vol] 350 10*3/uL 150-450 [facility] Serum or plasma albumin kayli urement (mass/volume)Ordered By: Keri Pollard on 05-25-2023 Albumin [Mass/Vol] 3.3 g/dL 3.2-5.0 [facility] Serum or plasma albumin/glob ulin mass ratioOrdered By: Keri Pollard on 05-25-2023 Albumin/Globulin [Mass ratio] 0.9 {ratio} 0.9-2.4 [facility] Serum or plasma calcium kayli urement (mass/volume)Ordered By: Keri Pollard on 05-25-2023 Calcium [Mass/Vol] 8.7 mg/dL 8.5-10.1 [facility] Serum or plasma cholesterol in HDL measurement (mass/volume)Ordered By: Keri Pollard on 05-25-2023 Cholesterol in HDL [Mass/Vol] 85 mg/dL >40 [facility] Comment on above: The drugs N-Acetylcy steine and Metamizole may falsely depress this assay. Reference Range HDL <40 mg/dL Low HDL Cholesterol HDL >or= 60 mg/dL High HDL Cholesterol Serum or plasma cholesterol in VLDL measurement (mass/volume)Ordered By: Keri Pollard on 05-25-2023 Cholesterol in VLDL [Mass/Vol] 25 mg/dL 5-40 [facility] Serum or plasma creatinine m easurement (mass/volume)Ordered By: Keri Pollard on 05-25-2023 Creatinine [Mass/Vol] 1.02 mg/dL 0.55-1.02 [facility] Comment on above: The validity of the calculated GFR & GFRAA in patients over 70 years has not been determined. Clinical correlation is essential. Serum or plasma low density lipoprotein (LDL) cholesterol measurement (mass/volume)Ordered By: Keri Pollard on 05-25-2023 Cholesterol in LDL [Mass/Vol] 67 mg/dL 0-130 [facility] Serum or plasma urea nitroge n measurement (mass/volume)Ordered By: Keri Pollard on 05-25-2023 Urea nitrogen [Mass/Vol] 13 mg/dL 7-18 [facility] Thin prep Papanicolaou smear with manual screeningOrdered By: Keri Pollard on 05-25-2023 Thin prep Papanicolaou smear with manual screening 16 U/L 15-37 [facility] Comment on above: Slight Hemolysis, Re sult may be falsely increased. Thin prep Papanicolaou smear with manual screening 5 5-15 [facility] Whole blood hemoglobin A1c/t otal hemoglobin ratio (mass fraction)Ordered By: Keri Pollard on 05-25-2023 HbA1c (Bld) [Mass fraction] 5.3 % 3.8-5.6 [facility] Comment on above: Normal < 5.7 % Predi abetic 5.7 - 6.4 % Diabetic >or= 6.5 % Please note range changes. CNOVon 04-05-2023 CNOV Office Visit (GENSWS ) ANDIE MEJIA ([id number]) 1975 F Date Time Provider Department 04/05/23 3:15 PM REYMNUDO ESCAMILLA During your visit today, we recorded the following information about you: Temperature Pulse Blood pressure Weight 96.9 degrees 86/minute 150/82 127.5 kg Height 1.702 m Reymundo Escamilla MD 04/12/2023 1:11 PM Signed Subjective: Patient is status post a ultrasound-guided fine-needle aspiration of the right thyroid gland completed on 03/25/2023. This came back as benign with abundant colloid cystic contents and rare band follicular cells. The size of the nodule was 1.9 cm in greatest diameter. Objective:Blood pressure 150/82, pulse 86, temperature 36.1 ?C (96.9 ?F), height 170.2 cm (5' 7), weight 127.5 kg (281 lb), SpO2 98 %. Neck is supple no hard palpable nodules are identified Assessment:Multinodul ar goiter (primary encounter diagnosis) Plan: Patient will need to have yearly thyroid ultrasounds that the nodules grow by more than 20% or new nodules grow that meet criteria for biopsies and repeat fine-needle aspirations will be performed. Allergies As of Date: 04/05/2023 Noted Allergy Reaction IODINATED CONTRAST MEDIA 03/16/2023 2 - Rash 14 - Other: See Comments Comments: Chest pain SHELLFISH DERIVED 03/16/2023 7 - Swelling 12 - Shortness of Breath Date Reviewed: 04/05/2023 Reviewed by: Gayla Pozo LPN - Fully Assessed Reason for Visit: Follow Up [171] Cmt: FNA results Primary Visit Diagnosis:Multinodula r goiter [E04.2] Prescriptions as of 04/12/2023 - nystatin (MYCOSTATIN) 100,000 unit/mL suspension Take 200,000 Units by mouth three times a day at 6 am, 12 pm, and 9 pm. - topiramate (TOPAMAX) 100 mg tablet Take 100 mg by mouth once daily. - lithium carbonate (ESKALITH) 300 mg capsule Take 300 mg by mouth two times a day with meals. - cholecalciferol (VITAMIN D-3) 50 mcg (2,000 unit) tablet Take 2,000 Units by mouth two times a week. - propranolol (INDERAL) 60 mg tablet Take 120 mg by mouth daily at bedtime. - topiramate (TOPAMAX) 25 mg tablet Take 25 mg by mouth once daily. - SUMAtriptan (IMITREX) 25 mg tablet Take 25 mg by mouth as needed for migraine headache (see administration instructions). May repeat dose after 2 hours if needed. Maximum daily dose is 200 mg per day. - albuterol HFA (PROVENTIL HFA) inhaler Inhale 8 Puffs as instructed every 6 hours as needed for wheezing/shortness of breath. - hydrOXYchloroQUINE 300 mg tablet Take 200 mg by mouth two times a day. Problem List As Of Date: 04/05/2023 (None) Letter Text Encounter Status:Closed by REYMUNDO ESCAMILLA on 04/12/23 [facility] CNOVon 03-26-2023 CNOV Office Visit (GENSWS ) ANDIE MEJIA ([id number]) 1975 F Date Time Provider Department 03/26/23 9:00 AM REYMUNDO ESCAMILLA During your visit today, we recorded the following information about you: Reymundo Escamilla MD 03/26/2023 10:34 AM Signed Preoperative diagnosis: Multinodular goiter Postoperative diagnosis: The [...] and the patient tolerated the procedure well. Kathryn Ribeiro LPN 03/26/2023 10:03 AM Signed UNIVERSAL PROTOCOL / SAFETY CHECKLIST Procedure to [...] Plan of Care Visit completed when applicable. LOAN Damon Samaria, LPN 03/26/2023 9:33 AM Addendum Instructions After THYROID FINE NEEDLE ASPIRATION Please [...] you have any questions or concerns @ [phone]. Please make an appointment to follow up in one week with your physician and thank you for choosing the [facility] [place]. Allergies As of Date: 03/26/2023 Noted Allergy Reaction IODINATED CONTRAST MEDIA 03/16/2023 2 - Rash 14 - Other: See Comments Comments: Chest pain SHELLFISH DERIVED 03/16/2023 7 - Swelling 12 - Shortness of Breath Date Reviewed: 03/26/2023 Reviewed by: Kathryn Ribeiro LPN - Fully Assessed Reason for Visit: Procedure [88] Cmt: FNA OF RIGHT THYROID Primary Visit Diagnosis:Multinodula r goiter [E04.2] Order(s): THYROID BIOPSY RIGHT (POC) SURG USE ONLY [5108108] Order #: [id number]. #:[id number]: 1 Prescriptions as of 03/26/2023 - nystatin (MYCOSTATIN) 100,000 unit/mL suspension Take 200,000 Units by mouth three times a day at 6 am, 12 pm, and 9 pm. - topiramate (TOPAMAX) 100 mg tablet Take 100 mg by mouth once daily. - lithium carbonate (ESKALITH) 300 mg capsule Take 300 mg by mouth two times a day with meals. - cholecalciferol (VITAMIN D-3) 50 mcg (2,000 unit) tablet Take 2,000 Units by mouth two times a week. - propranolol (INDERAL) 60 mg tablet Take 120 mg by mouth daily at bedtime. - topiramate (TOPAMAX) 25 mg tablet Take 25 mg by mouth once daily. - SUMAtriptan (IMITREX) 25 mg tablet Take 25 mg by mouth as needed for migraine headache (see administration instructions). May repeat dose after 2 hours if needed. Maximum daily dose is 200 mg per day. - albuterol HFA (PROVENTIL HFA) inhaler Inhale 8 Puffs as instructed every 6 hours as needed for wheezing/shortness of breath. - hydrOXYchloroQUINE 300 mg tablet Take 200 mg by mouth two times a day. Problem List As Of Date: 03/26/2023 (None) Other instructions from your clinician: Instructions After THYROID FINE NEEDLE ASPIRATION Please [...] you have any questions or concerns @ 330.2 (more content not included)... Normal [facility] US THYROID BIOPSY RIGHT (POC ) SURG USE ONLYon 03-26-2023 [facility] CYTOLOGY NON-GYNon 3 CASE REPORT Normal [facility] Comment on above: Order Comment: Speci men Type: FLUID SPECIMEN Ordering Facility: [facility] Address: [address] [place] [address] Result Comment: [facility] Cytology Report Case: [id number] Authorizing Provider: Reymundo Escamilla MD Collected: 03/25/2023 11:00 AM Ordering Location: [facility] Received: 03/29/2023 01:16 PM [facility] Pathologist: Gayathri Mendez MD Specimen: THYROID RIGHT FINE NEEDLE ASPIRATION Performed By: #### C KHURRAM #### [facility] CLIA [id number] [address] [place] [address] [place] CLINICAL HISTORY Routine Normal [facility] Comment on above: Order Comment: Speci men Type: FLUID SPECIMEN Ordering Facility: [facility] Address: [address] [place] [address] Result Comment: Abnormal ultrasound Afirma sample received 03/29/2023 Performed By: #### C YTONON #### [facility] CLIA [id number] [address] [place] [address] [place] FINAL DIAGNOSIS Normal [facility] Comment on above: Order Comment: Speci men Type: FLUID SPECIMEN Ordering Facility: [facility] Address: [address] [place] [address] Result Comment: A - THYROID RIGHT FINE NEEDLE ASPIRATION Benign. Abundant colloid, cyst contents and rare bland follicular cells. The following cell blocks were associated with this case: A1 Cell Block, Alcohol Fixed Performed By: #### C KHURRAM #### [facility] CLIA [id number] [address] [place] [address] [place] FINAL PERFORMING LAB Normal [facility] Comment on above: Order Comment: Speci men Type: FLUID SPECIMEN Ordering Facility: [facility] Address: [address] [place] [address] Result Comment: Tech nical component, search engine optimization strategist screening performed at [facility], [address] [place], [place] [id number] CLIA# [id number] Diagnostic interpretation performed at [facility], [address] [place] [id number] CLIA# [id number] Shipper And Receiving: Jason Rizzo M.D. Performed By: #### C CADEN #### [facility] CLIA [id number] [address] [place] [address] [place] GROSS DESCRIPTION Normal [facility] Comment on above: Order Comment: Speci men Type: FLUID SPECIMEN Ordering Facility: [facility] Address: [address] [place] [address] Result Comment: A. T HYROID RIGHT FINE NEEDLE ASPIRATION 20 cc cloudy red formalin. ThinPrep and Cell Block prepared and 12 smears. Afirma sample received 03/29/2023 Performed By: #### C KHURRAM #### [facility] CLIA [id number] [address] [place] [address] [place] Absolute lymphocyte countOrd ered By: Theresa Carvajal on 03-24-2023 Lymphocytes Auto (Unsp spec) [#/Vol] 2.60 10*3/uL 0.83-4.51 [facility] Basophil percentageOrdered B y: Theresa Carvajal on 03-24-2023 Basophils/100 WBC (Bld) 0.7 % 0-1 [facility] Bilirubin [Mass/Vol] 0.40 mg/dL 0.20-1.00 [facility] Comment on above: For patients on eltr ombopag therapy, use of Dimension Catron TBIL is not recommended. Chloride [Moles/Vol] 111 mmol/L 98-107 [facility] Eosinophils/100 WBC (Bld) 1.7 % 0-5 [facility] Glucose [Mass/Vol] 105 mg/dL 74-106 [facility] Comment on above: Fasting Glucose resu lt from 100 to 125 mg/dL suggests IMPAIRED HOMEOSTASIS per A.D.A. criteria. Neutrophils (Bld) [#/Vol] 8.2 10*3/uL 2.0-7.7 [facility] Neutrophils/100 WBC (Bld) 68.9 % 47-70 [facility] Potassium [Moles/Vol] 4.5 mmol/L 3.5-5.1 [facility] Protein [Mass/Vol] 6.9 g/dL 6.4-8.2 [facility] Sodium [Moles/Vol] 141 mmol/L 136-145 [facility] WBC (Bld) [#/Vol] 11.9 10*3/uL 4.4-11.0 [facility] Blood erythrocytes count (nu mber/volume)Ordered By: Theresa Carvajal on 03-24-2023 RBC (Bld) [#/Vol] 4.96 10*6/uL 4.2-5.4 [facility] Blood hemoglobin measurement (mass/volume)Ordered By: Theresa Carvajal on 03-24-2023 Hemoglobin (Bld) [Mass/Vol] 13.8 g/dL 12.0-15.0 [facility] Blood lymphocytes/100 leukoc ytesOrdered By: Theresa Carvajal on 03-24-2023 Lymphocytes/100 WBC (Bld) 21.8 % 19-41 [facility] Blood monocytes/100 leukocyt esOrdered By: Theresa Carvajal on 03-24-2023 Monocytes/100 WBC (Bld) 6.5 % 0-10 [facility] Blood platelet mean volumeOr dered By: Theresa Carvajal on 03-24-2023 Platelet mean volume (Bld) [Entitic vol] 9.8 fL 6.2-12.0 [facility] Determination of erythrocyte mean corpuscular volume (MCV)Ordered By: Theresa Carvajal on 03-24-2023 MCV (RBC) [Entitic vol] 91.7 fL 81-99 [facility] Hematocrit Auto (Bld) [Volum e fraction]Ordered By: Theresa Carvajal on 03-24-2023 Hematocrit (Bld) [Volume fraction] 45.5 % 37-47 [facility] Laboratory - Chemistry and C hemistry - challengeOrdered By: Theresacolleen Carvajal on 03-24-2023 ALP [Catalytic activity/Vol] 75 U/L 45-117 [facility] ALT [Catalytic activity/Vol] 24 U/L 13-56 [facility] CO2 [Moles/Vol] 24.0 mmol/L 21.0-32.0 [facility] Globulin (S) [Mass/Vol] 3.7 g/dL 2.2-4.2 [facility] Urea nitrogen/Creatinine [Mass ratio] 15.5 mg/mg 10-20 [facility] Laboratory - Hematology and Cell countsOrdered By: Theresa Carvajal on 03-24-2023 Erythrocyte distribution width (RBC) [Entitic vol] 42.5 fL 35.1-43.9 [facility] Erythrocyte distribution width (RBC) [Ratio] 12.6 % 11.6-14.6 [facility] Immature granulocytes/100 WBC (Bld) 0.400 % 0.0-0.9 [facility] Comment on above: IG% - Immature Granu locytes (promyelocytes, myelocytes and metamyelocytes) > 1% indicates that a LEFT SHIFT is Present. MCH (RBC) [Entitic mass] 27.8 pg 27.0-32.0 [facility] Nucleated RBC/100 WBC (Bld) [Ratio] 0 % 0-5 [facility] MCHC Auto (RBC) [Mass/Vol]Or dered By: Theresa Carvajal on 03-24-2023 MCHC (RBC) [Mass/Vol] 30.3 g/dL 32-36 [facility] No Panel InformationOrdered By: Theresa Carvajal on 03-24-2023 Estimated GFR (MDRD) Amer 80 mL/min >60 [facility] Comment on above: GFR Calc Estimated GFR (MDRD) Non-Af Amer 66 mL/min >60 [facility] Comment on above: Non- GFR Calc Platelets bldOrdered By: Kar Carvajal on 03-24-2023 Platelets (Bld) [#/Vol] 317 10*3/uL 150-450 [facility] Serum or plasma albumin kayli urement (mass/volume)Ordered By: Theresa Carvajal on 03-24-2023 Albumin [Mass/Vol] 3.2 g/dL 3.2-5.0 [facility] Serum or plasma albumin/glob ulin mass ratioOrdered By: Theresa Carvajal on 03-24-2023 Albumin/Globulin [Mass ratio] 0.9 {ratio} 0.9-2.4 [facility] Serum or plasma calcium kayli urement (mass/volume)Ordered By: Theresa Carvajal on 03-24-2023 Calcium [Mass/Vol] 8.7 mg/dL 8.5-10.1 [facility] Serum or plasma creatinine m easurement (mass/volume)Ordered By: Theresa Carvajal on 03-24-2023 Creatinine [Mass/Vol] 0.97 mg/dL 0.55-1.02 [facility] Comment on above: The validity of the calculated GFR & GFRAA in patients over 70 years has not been determined. Clinical correlation is essential. Serum or plasma urea nitroge n measurement (mass/volume)Ordered By: Theresa Carvajal on 03-24-2023 Urea nitrogen [Mass/Vol] 15 mg/dL 7-18 [facility] Thin prep Papanicolaou smear with manual screeningOrdered By: Theresa Carvajal on 03-24-2023 Thin prep Papanicolaou smear with manual screening 16 U/L 15-37 [facility] Thin prep Papanicolaou smear with manual screening 6 5-15 [facility] CNOVon 03-17-2023 CNOV Office Visit (MENDEZS ) ANDIE MEJIA ([id number]) 1975 F Date Time Provider Department 03/17/23 9:00 AM REYMUNDO ESCAMILLA During your visit today, we recorded the following information about you: Temperature Pulse Blood pressure Weight 97.7 degrees 82/minute 126/78 127.5 kg Height 1.702 m Kathryn Ribeiro LPN 03/17/2023 9:13 AM Signed [...] Mammogram screening? 2018 Last Colonoscopy: NO PRIOR LOAN Damon Daniel P, MD 03/19/2023 1:33 PM Signed HISTORY AND PHYSICAL Andie Mejia 1975 REFERRING PHYSICIAN: Keri Pollard MD [address] [facility] [address] [facility] [id number] CHIEF COMPLAINT: Consult (Thyroid nodule) HPI: The patient is a 47 year old female with a complaint of a bilateral thyroid nodule. This thyroid nodule was found on Ultrasound by [facility]. The patient denies pain, denies difficulty [...] Take 25 mg by mouth once daily. JUDGE (more content not included)... Normal [facility] Laboratory - Chemistry and C hemistry - challengeOrdered By: Keri Pollard on 03-03-2023 Free T4 [Mass/Vol] 0.94 ng/dL 0.76-1.46 [facility] No Panel InformationOrdered By: Keri Pollard on 03-03-2023 Thyroglobulin Antibody < 1.0 IU/mL 0.0-0.9 [facility] Comment on above: Thyroglobulin Antibo dy measured by Taya [employer]terMethodology Thyroglobulin Level 174.8 ng/mL 1.5-38.5 [facility] Comment on above: According to the [place] [employer]ochemistry,the reference interval for Thyroglobulin (TG) should berelated to euthyroid patients and not for patients whounderwent thyroidectomy. TG reference intervals for thesepatients depend on the residual mass of the thyroid tissueleft after surgery. Establishing a post-operative baselineis recommended. The assay limit of quantitation is 0.1ng/mLThyroglobulin measured by Taya Maryse [employer]ometricAss[employer] Thyroid Stimulating Hormone (TSH) 0.69 uIU/mL 0.358-3.74 [facility] Serum or plasma thyroperoxid ase antibody assay (units/volume)Ordered By: Keri Pollard on 03-03-2023 TPO Ab Qn 11 [IU]/mL 0-34 [facility] Comment on above: Performed at: - [address] [id number] Director: Shiva Penaloza MD, Phone: [phone] at: [facility] [id number] Director: Ankush Valle PhD, Phone: [phone] Thyroid stimulating immunogl obulins detectionOrdered By: Keri Pollard on 03-03-2023 Thyroid stimulating immunoglobulins Ql (S) <0.10 IU/L 0.00-0.55 [facility] Absolute lymphocyte countOrd ered By: Theresa Carvajal on 12-30-2022 Lymphocytes Auto (Unsp spec) [#/Vol] 2.78 10*3/uL 0.83-4.51 [facility] Basophil percentageOrdered B y: Theresa Carvajal on 12-30-2022 Basophils/100 WBC (Bld) 0.6 % 0-1 [facility] Bilirubin [Mass/Vol] 0.30 mg/dL 0.20-1.00 [facility] Comment on above: For patients on eltr ombopag therapy, use of Dimension Catron TBIL is not recommended. Chloride [Moles/Vol] 111 mmol/L 98-107 [facility] Eosinophils/100 WBC (Bld) 1.5 % 0-5 [facility] Glucose [Mass/Vol] 151 mg/dL 74-106 [facility] Comment on above: Fasting Glucose resu lt greater than or equal to 126 mg/dL suggests DIABETES MELLITUS per A.D.A. criteria. Neutrophils (Bld) [#/Vol] 8.7 10*3/uL 2.0-7.7 [facility] Neutrophils/100 WBC (Bld) 69.5 % 47-70 [facility] Potassium [Moles/Vol] 3.5 mmol/L 3.5-5.1 [facility] Protein [Mass/Vol] 6.6 g/dL 6.4-8.2 [facility] Sodium [Moles/Vol] 140 mmol/L 136-145 [facility] WBC (Bld) [#/Vol] 12.6 10*3/uL 4.4-11.0 [facility] Blood erythrocytes count (nu mber/volume)Ordered By: Theresa Carvajal on 12-30-2022 RBC (Bld) [#/Vol] 4.75 10*6/uL 4.2-5.4 [facility] Blood hemoglobin measurement (mass/volume)Ordered By: Theresa Carvajal on 12-30-2022 Hemoglobin (Bld) [Mass/Vol] 13.4 g/dL 12.0-15.0 [facility] Blood lymphocytes/100 leukoc ytesOrdered By: Theresa Carvajal on 12-30-2022 Lymphocytes/100 WBC (Bld) 22.1 % 19-41 [facility] Blood monocytes/100 leukocyt esOrdered By: Theresa Carvajal on 12-30-2022 Monocytes/100 WBC (Bld) 6.0 % 0-10 [facility] Blood platelet mean volumeOr dered By: Theresa Carvajal on 12-30-2022 Platelet mean volume (Bld) [Entitic vol] 9.8 fL 6.2-12.0 [facility] Determination of erythrocyte mean corpuscular volume (MCV)Ordered By: Theresa Carvajal on 12-30-2022 MCV (RBC) [Entitic vol] 95.2 fL 81-99 [facility] Hematocrit Auto (Bld) [Volum e fraction]Ordered By: Theresa Carvajal on 12-30-2022 Hematocrit (Bld) [Volume fraction] 45.2 % 37-47 [facility] Laboratory - Chemistry and C hemistry - challengeOrdered By: Theresa Carvajal on 12-30-2022 ALP [Catalytic activity/Vol] 75 U/L 45-117 [facility] ALT [Catalytic activity/Vol] 28 U/L 13-56 [facility] CO2 [Moles/Vol] 24.0 mmol/L 21.0-32.0 [facility] Globulin (S) [Mass/Vol] 3.5 g/dL 2.2-4.2 [facility] Urea nitrogen/Creatinine [Mass ratio] 9.6 mg/mg 10-20 [facility] Laboratory - Hematology and Cell countsOrdered By: Theresa Carvajla on 12-30-2022 Erythrocyte distribution width (RBC) [Entitic vol] 45.0 fL 35.1-43.9 [facility] Erythrocyte distribution width (RBC) [Ratio] 12.9 % 11.6-14.6 [facility] Immature granulocytes/100 WBC (Bld) 0.300 % 0.0-0.9 [facility] Comment on above: IG% - Immature Granu locytes (promyelocytes, myelocytes and metamyelocytes) > 1% indicates that a LEFT SHIFT is Present. MCH (RBC) [Entitic mass] 28.2 pg 27.0-32.0 [facility] Nucleated RBC/100 WBC (Bld) [Ratio] 0 % 0-5 [facility] MCHC Auto (RBC) [Mass/Vol]Or dered By: Theresa Carvajal on 12-30-2022 MCHC (RBC) [Mass/Vol] 29.6 g/dL 32-36 [facility] No Panel InformationOrdered By: Theresa Carvajal on 12-30-2022 Estimated GFR (MDRD) Amer 66 mL/min >60 [facility] Comment on above: GFR Calc Estimated GFR (MDRD) Non-Af Amer 54 mL/min >60 [facility] Comment on above: Non- GFR Calc Platelets bldOrdered By: Kar Carvajal on 12-30-2022 Platelets (Bld) [#/Vol] 342 10*3/uL 150-450 [facility] Serum or plasma albumin kayli urement (mass/volume)Ordered By: Theresa Carvajal on 12-30-2022 Albumin [Mass/Vol] 3.1 g/dL 3.2-5.0 [facility] Serum or plasma albumin/glob ulin mass ratioOrdered By: Theresa Carvajal on 12-30-2022 Albumin/Globulin [Mass ratio] 0.9 {ratio} 0.9-2.4 [facility] Serum or plasma calcium kayli urement (mass/volume)Ordered By: Theresa Carvajal on 12-30-2022 Calcium [Mass/Vol] 8.7 mg/dL 8.5-10.1 [facility] Serum or plasma creatinine m easurement (mass/volume)Ordered By: Theresa Carvajal on 12-30-2022 Creatinine [Mass/Vol] 1.14 mg/dL 0.55-1.02 [facility] Comment on above: The validity of the calculated GFR & GFRAA in patients over 70 years has not been determined. Clinical correlation is essential. Serum or plasma urea nitroge n measurement (mass/volume)Ordered By: Theresa Carvajal on 12-30-2022 Urea nitrogen [Mass/Vol] 11 mg/dL 7-18 [facility] Thin prep Papanicolaou smear with manual screeningOrdered By: Theresa Carvajal on 12-30-2022 Thin prep Papanicolaou smear with manual screening 15 U/L 15-37 [facility] Thin prep Papanicolaou smear with manual screening 5 5-15 [facility] Cervical or vagninal specime n microscopic examination by cytology stain (reported asOrdered By: Hedy Miles on 11-03-2022 Cytology report Cyto stain Doc (Cvx/Vag) Comment . [facility] Comment on above: The Pap smear is a s creening test designed to aid in thedetection of premalignant and malignant conditions of theuterine cervix. It is not a diagnostic procedure andshould not be used as the sole means of detecting cervicalcancer. Both false-positive and false-negative reports dooccur. Detection in cervical specim en of any of human papilloma virus (HPV) 16, 18, 31, 33,Ordered By: Hedy Miles on 11-03-2022 HPV 16+18+31+33+35+39+45+51 +52+56+58+59+66+68 DNA Probe+sig amp Ql (Cvx) Negative Negative [facility] Comment on above: This nucleic acid am plification test detects fourteen high-risk HPV types (16,18,31,33,35,39,45,51,52,56,58,59,66,68)without differentiation.Performed at: [address] [id number] Director: Margarita Bosch MD, Phone: [phone] at: [facility] [id number] [place], [place] [id number] Director: Wyatt Cervantes MD, Phone: [phone] at: =G - [facility] [address] [place] [id number] Director: Margarita Bosch MD, Phone: [phone] Laboratory - CytologyOrdered By: Hedy Miles on 11-03-2022 Modeling Agent Cyto stain Nom (Cvx/Vag) [ID] Comment . [facility] Comment on above: Kacy Casas, Cytotec hnologist (ASCP) Laboratory - Miscellaneous t estsOrdered By: Hedy Miles on 11-03-2022 Service comment (Unsp spec) [Interp] Comment . [facility] Comment on above: This liquid based Th inPrep(R) pap test was screened withthe use of an image guided system. Service comment (Unsp spec) [Interp] . . [facility] No Panel InformationOrdered By: Hedy Miles on 11-03-2022 Pathology report final diagnosis Narrative Comment . [facility] Comment on above: NEGATIVE FOR INTRAEP ITHELIAL LESION OR MALIGNANCY.CELLULAR CHANGES ASSOCIATED WITH INFLAMMATION ARE PRESENT.THIS SPECIMEN WAS RESCREENED PART OF OUR PATENT LAW SPECIALIST PROGRAM. HIV 1 and HIV-2 antibody ass ay with HIV-1 p24 antigen detectionOrdered By: Dr. Pollard on 10-29-2022 HIV 1+2 Ab+HIV1 p24 Ag IA Ql Non-Reactive Nonreactive [facility] No Panel InformationOrdered By: Dr. Pollard on 10-29-2022 Hepatitis B Surface Antigen Non-Reactive Nonreactive [facility] Hepatitis C Antibody Non-Reactive Nonreactive [facility] Comment on above: Non Reactive: < 0.8 Equivocal: >/= 0.8 to < 1.0 Reactive: >/= 1.0The CDC recommends that a reactive/equivocal HCV antibody result be followed up by the HCV Nucleic Acid Amplificationtest (750731) Serum Treponema species anti body detectionOrdered By: Dr. Pollard on 10-29-2022 Treponema sp Ab Ql (S) Non-Reactive [facility] Absolute lymphocyte countOrd ered By: Dr. Carvajal on 10-13-2022 Lymphocytes Auto (Unsp spec) [#/Vol] 2.65 10*3/uL 0.83-4.51 [facility] Basophil percentageOrdered B y: Dr. Carvajal on 10-13-2022 Basophils/100 WBC (Bld) 0.7 % 0-1 [facility] Bilirubin [Mass/Vol] 0.30 mg/dL 0.20-1.00 [facility] Comment on above: For patients on eltr ombopag therapy, use of Dimension Catron TBIL is not recommended. Chloride [Moles/Vol] 111 mmol/L 98-107 [facility] Eosinophils/100 WBC (Bld) 1.9 % 0-5 [facility] Glucose [Mass/Vol] 90 mg/dL 74-106 [facility] Neutrophils (Bld) [#/Vol] 8.0 10*3/uL 2.0-7.7 [facility] Neutrophils/100 WBC (Bld) 67.6 % 47-70 [facility] Potassium [Moles/Vol] 4.3 mmol/L 3.5-5.1 [facility] Protein [Mass/Vol] 6.8 g/dL 6.4-8.2 [facility] Sodium [Moles/Vol] 141 mmol/L 136-145 [facility] WBC (Bld) [#/Vol] 11.9 10*3/uL 4.4-11.0 [facility] Blood erythrocytes count (nu mber/volume)Ordered By: Dr. Carvajal on 10-13-2022 RBC (Bld) [#/Vol] 4.93 10*6/uL 4.2-5.4 [facility] Blood hemoglobin measurement (mass/volume)Ordered By: Dr. Carvajal on 10-13-2022 Hemoglobin (Bld) [Mass/Vol] 13.7 g/dL 12.0-15.0 [facility] Blood lymphocytes/100 leukoc ytesOrdered By: Dr. Carvajal on 10-13-2022 Lymphocytes/100 WBC (Bld) 22.3 % 19-41 [facility] Blood monocytes/100 leukocyt esOrdered By: Dr. Carvajal on 10-13-2022 Monocytes/100 WBC (Bld) 7.2 % 0-10 [facility] Blood platelet mean volumeOr dered By: Dr. Carvajal on 10-13-2022 Platelet mean volume (Bld) [Entitic vol] 10.2 fL 6.2-12.0 [facility] Determination of erythrocyte mean corpuscular volume (MCV)Ordered By: Dr. Carvajal on 10-13-2022 MCV (RBC) [Entitic vol] 92.7 fL 81-99 [facility] Hematocrit Auto (Bld) [Volum e fraction]Ordered By: Dr. Carvajal on 10-13-2022 Hematocrit (Bld) [Volume fraction] 45.7 % 37-47 [facility] Laboratory - Chemistry and C hemistry - challengeOrdered By: Dr. Carvajal on 10-13-2022 ALP [Catalytic activity/Vol] 70 U/L 45-117 [facility] ALT [Catalytic activity/Vol] 25 U/L 13-56 [facility] CO2 [Moles/Vol] 22.0 mmol/L 21.0-32.0 [facility] Globulin (S) [Mass/Vol] 3.5 g/dL 2.2-4.2 [facility] Urea nitrogen/Creatinine [Mass ratio] 12.7 mg/mg 10-20 [facility] Laboratory - Hematology and Cell countsOrdered By: Dr. Carvajal on 10-13-2022 Erythrocyte distribution width (RBC) [Entitic vol] 47.3 fL 35.1-43.9 [facility] Erythrocyte distribution width (RBC) [Ratio] 13.7 % 11.6-14.6 [facility] Immature granulocytes/100 WBC (Bld) 0.300 % 0.0-0.9 [facility] Comment on above: IG% - Immature Granu locytes (promyelocytes, myelocytes and metamyelocytes) > 1% indicates that a LEFT SHIFT is Present. MCH (RBC) [Entitic mass] 27.8 pg 27.0-32.0 [facility] Nucleated RBC/100 WBC (Bld) [Ratio] 0 % 0-5 [facility] MCHC Auto (RBC) [Mass/Vol]Or dered By: Dr. Carvajal on 10-13-2022 MCHC (RBC) [Mass/Vol] 30.0 g/dL 32-36 [facility] No Panel InformationOrdered By: Dr. Carvajal on 10-13-2022 Estimated GFR (MDRD) Amer 69 mL/min >60 [facility] Comment on above: GFR Calc Estimated GFR (MDRD) Non-Af Amer 57 mL/min >60 [facility] Comment on above: Non- GFR Calc Platelets bldOrdered By: Dr. Carvajal on 10-13-2022 Platelets (Bld) [#/Vol] 352 10*3/uL 150-450 [facility] Serum or plasma albumin kayli urement (mass/volume)Ordered By: Dr. Carvajal on 10-13-2022 Albumin [Mass/Vol] 3.3 g/dL 3.2-5.0 [facility] Serum or plasma albumin/glob ulin mass ratioOrdered By: Dr. Carvajal on 10-13-2022 Albumin/Globulin [Mass ratio] 0.9 {ratio} 0.9-2.4 [facility] Serum or plasma calcium kayli urement (mass/volume)Ordered By: Dr. Carvajal on 10-13-2022 Calcium [Mass/Vol] 9.3 mg/dL 8.5-10.1 [facility] Serum or plasma creatinine m easurement (mass/volume)Ordered By: Dr. Carvajal on 10-13-2022 Creatinine [Mass/Vol] 1.10 mg/dL 0.55-1.02 [facility] Comment on above: The validity of the calculated GFR & GFRAA in patients over 70 years has not been determined. Clinical correlation is essential. Serum or plasma urea nitroge n measurement (mass/volume)Ordered By: Dr. Carvajal on 10-13-2022 Urea nitrogen [Mass/Vol] 14 mg/dL 7-18 [facility] Thin prep Papanicolaou smear with manual screeningOrdered By: Dr. Carvajal on 10-13-2022 Thin prep Papanicolaou smear with manual screening 12 U/L 15-37 [facility] Thin prep Papanicolaou smear with manual screening 8 5-15 [facility] Basophil percentageOrdered B y: Dr. Pollard on 08-20-2022 Bilirubin [Mass/Vol] 0.30 mg/dL 0.20-1.00 [facility] Comment on above: For patients on eltr ombopag therapy, use of Dimension Catron TBIL is not recommended. Chloride [Moles/Vol] 109 mmol/L 98-107 [facility] Glucose [Mass/Vol] 126 mg/dL 74-106 [facility] Comment on above: Fasting Glucose resu lt greater than or equal to 126 mg/dL suggests DIABETES MELLITUS per A.D.A. criteria. Potassium [Moles/Vol] 4.0 mmol/L 3.5-5.1 [facility] Protein [Mass/Vol] 6.7 g/dL 6.4-8.2 [facility] Sodium [Moles/Vol] 139 mmol/L 136-145 [facility] Laboratory - Chemistry and C hemistry - challengeOrdered By: Dr. Pollard on 08-20-2022 ALP [Catalytic activity/Vol] 74 U/L 45-117 [facility] ALT [Catalytic activity/Vol] 37 U/L 13-56 [facility] CO2 [Moles/Vol] 26.0 mmol/L 21.0-32.0 [facility] Globulin (S) [Mass/Vol] 3.4 g/dL 2.2-4.2 [facility] Urea nitrogen/Creatinine [Mass ratio] 6.8 mg/mg 10-20 [facility] No Panel InformationOrdered By: Dr. Pollard on 08-20-2022 Estimated GFR (MDRD) Amer 74 mL/min >60 [facility] Comment on above: GFR Calc Estimated GFR (MDRD) Non-Af Amer 61 mL/min >60 [facility] Comment on above: Non- GFR Calc Vitamin D 25-Hydroxy 36.4 ng/mL [facility] Comment on above: Vitamin D 25(OH) Sta tus Range Deficiency <20 ng/mL (50nmol/L) Insufficiency 20 - 30 ng/mL (50 - 75 nmol/L) Sufficiency 30 - 100 ng/mL (75 - 250 nmol/L) Toxicity >100 ng/mL (>250 nmol/L) Serum or plasma albumin kayli urement (mass/volume)Ordered By: Dr. Pollard on 08-20-2022 Albumin [Mass/Vol] 3.3 g/dL 3.2-5.0 [facility] Serum or plasma albumin/glob ulin mass ratioOrdered By: Dr. Pollard on 08-20-2022 Albumin/Globulin [Mass ratio] 1.0 {ratio} 0.9-2.4 [facility] Serum or plasma calcium kayli urement (mass/volume)Ordered By: Dr. Pollard on 08-20-2022 Calcium [Mass/Vol] 9.2 mg/dL 8.5-10.1 [facility] Serum or plasma creatinine m easurement (mass/volume)Ordered By: Dr. Pollard on 08-20-2022 Creatinine [Mass/Vol] 1.03 mg/dL 0.55-1.02 [facility] Comment on above: The validity of the calculated GFR & GFRAA in patients over 70 years has not been determined. Clinical correlation is essential. Serum or plasma urea nitroge n measurement (mass/volume)Ordered By: Dr. Pollard on 08-20-2022 Urea nitrogen [Mass/Vol] 7 mg/dL 7-18 [facility] Thin prep Papanicolaou smear with manual screeningOrdered By: Dr. Pollard on 08-20-2022 Thin prep Papanicolaou smear with manual screening 25 U/L 15-37 [facility] Thin prep Papanicolaou smear with manual screening 4 5-15 [facility] Whole blood hemoglobin A1c/t otal hemoglobin ratio (mass fraction)Ordered By: Dr. Pollard on 08-20-2022 HbA1c (Bld) [Mass fraction] 5.5 % 3.8-5.6 [facility] Comment on above: Normal < 5.7 % Predi abetic 5.7 - 6.4 % Diabetic >or= 6.5 % Please note range changes. Basophil percentageOrdered B y: Dr. Carvajal on 07-14-2022 Bilirubin [Mass/Vol] 0.30 mg/dL 0.20-1.00 [facility] Comment on above: For patients on eltr ombopag therapy, use of Dimension Catron TBIL is not recommended. Chloride [Moles/Vol] 109 mmol/L 98-107 [facility] Glucose [Mass/Vol] 102 mg/dL 74-106 [facility] Comment on above: Fasting Glucose resu lt from 100 to 125 mg/dL suggests IMPAIRED HOMEOSTASIS per A.D.A. criteria. Potassium [Moles/Vol] 4.4 mmol/L 3.5-5.1 [facility] Protein [Mass/Vol] 6.8 g/dL 6.4-8.2 [facility] Sodium [Moles/Vol] 142 mmol/L 136-145 [facility] Laboratory - Chemistry and C hemistry - challengeOrdered By: Dr. Carvajal on 07-14-2022 ALP [Catalytic activity/Vol] 83 U/L 45-117 [facility] ALT [Catalytic activity/Vol] 47 U/L 13-56 [facility] CO2 [Moles/Vol] 28.0 mmol/L 21.0-32.0 [facility] Globulin (S) [Mass/Vol] 3.2 g/dL 2.2-4.2 [facility] Urea nitrogen/Creatinine [Mass ratio] 13.1 mg/mg 10-20 [facility] No Panel InformationOrdered By: Dr. Carvajal on 07-14-2022 Estimated GFR (MDRD) Amer 85 mL/min >60 [facility] Comment on above: GFR Calc Estimated GFR (MDRD) Non-Af Amer 70 mL/min >60 [facility] Comment on above: Non- GFR Calc Serum or plasma albumin kayli urement (mass/volume)Ordered By: Dr. Carvajal on 07-14-2022 Albumin [Mass/Vol] 3.6 g/dL 3.2-5.0 [facility] Serum or plasma albumin/glob ulin mass ratioOrdered By: Dr. Carvajal on 07-14-2022 Albumin/Globulin [Mass ratio] 1.1 {ratio} 0.9-2.4 [facility] Serum or plasma calcium kyali urement (mass/volume)Ordered By: Dr. Carvajal on 07-14-2022 Calcium [Mass/Vol] 9.6 mg/dL 8.5-10.1 [facility] Serum or plasma creatinine m easurement (mass/volume)Ordered By: Dr. Carvajal on 07-14-2022 Creatinine [Mass/Vol] 0.92 mg/dL 0.55-1.02 [facility] Comment on above: The validity of the calculated GFR & GFRAA in patients over 70 years has not been determined. Clinical correlation is essential. Serum or plasma urea nitroge n measurement (mass/volume)Ordered By: Dr. Carvajal on 07-14-2022 Urea nitrogen [Mass/Vol] 12 mg/dL 7-18 [facility] Thin prep Papanicolaou smear with manual screeningOrdered By: Dr. Carvajal on 07-14-2022 Thin prep Papanicolaou smear with manual screening 24 U/L 15-37 [facility] Thin prep Papanicolaou smear with manual screening 5 5-15 [facility] Absolute lymphocyte countOrd ered By: Dr. Carvajal on 06-17-2022 Lymphocytes Auto (Unsp spec) [#/Vol] 2.38 10*3/uL 0.83-4.51 [facility] Basophil percentageOrdered B y: Dr. Carvajal on 06-17-2022 Basophils/100 WBC (Bld) 0.6 % 0-1 [facility] Bilirubin [Mass/Vol] 0.20 mg/dL 0.20-1.00 [facility] Comment on above: For patients on eltr ombopag therapy, use of Dimension Catron TBIL is not recommended. Chloride [Moles/Vol] 109 mmol/L 98-107 [facility] Eosinophils/100 WBC (Bld) 2.1 % 0-5 [facility] Glucose [Mass/Vol] 93 mg/dL 74-106 [facility] Neutrophils (Bld) [#/Vol] 7.4 10*3/uL 2.0-7.7 [facility] Neutrophils/100 WBC (Bld) 68.4 % 47-70 [facility] Potassium [Moles/Vol] 4.5 mmol/L 3.5-5.1 [facility] Protein [Mass/Vol] 6.6 g/dL 6.4-8.2 [facility] Sodium [Moles/Vol] 142 mmol/L 136-145 [facility] WBC (Bld) [#/Vol] 10.9 10*3/uL 4.4-11.0 [facility] Blood erythrocytes count (nu mber/volume)Ordered By: Dr. Carvajal on 06-17-2022 RBC (Bld) [#/Vol] 4.76 10*6/uL 4.2-5.4 [facility] Blood hemoglobin measurement (mass/volume)Ordered By: Dr. Carvajal on 06-17-2022 Hemoglobin (Bld) [Mass/Vol] 13.7 g/dL 12.0-15.0 [facility] Blood lymphocytes/100 leukoc ytesOrdered By: Dr. Carvajal on 06-17-2022 Lymphocytes/100 WBC (Bld) 21.9 % 19-41 [facility] Blood monocytes/100 leukocyt esOrdered By: Dr. Carvajal on 06-17-2022 Monocytes/100 WBC (Bld) 6.5 % 0-10 [facility] Blood platelet mean volumeOr dered By: Dr. Carvajal on 06-17-2022 Platelet mean volume (Bld) [Entitic vol] 9.3 fL 6.2-12.0 [facility] Determination of erythrocyte mean corpuscular volume (MCV)Ordered By: Dr. Carvajal on 06-17-2022 MCV (RBC) [Entitic vol] 92.6 fL 81-99 [facility] Hematocrit Auto (Bld) [Volum e fraction]Ordered By: Dr. Carvajal on 06-17-2022 Hematocrit (Bld) [Volume fraction] 44.1 % 37-47 [facility] Laboratory - Chemistry and C hemistry - challengeOrdered By: Dr. Carvajal on 06-17-2022 ALP [Catalytic activity/Vol] 79 U/L 45-117 [facility] ALT [Catalytic activity/Vol] 157 U/L 13-56 [facility] CO2 [Moles/Vol] 25.0 mmol/L 21.0-32.0 [facility] Globulin (S) [Mass/Vol] 3.2 g/dL 2.2-4.2 [facility] Urea nitrogen/Creatinine [Mass ratio] 13.2 mg/mg 10-20 [facility] Laboratory - Hematology and Cell countsOrdered By: Dr. Carvajal on 06-17-2022 Erythrocyte distribution width (RBC) [Entitic vol] 46.3 fL 35.1-43.9 [facility] Erythrocyte distribution width (RBC) [Ratio] 13.9 % 11.6-14.6 [facility] Immature granulocytes/100 WBC (Bld) 0.500 % 0.0-0.9 [facility] Comment on above: IG% - Immature Granu locytes (promyelocytes, myelocytes and metamyelocytes) > 1% indicates that a LEFT SHIFT is Present. MCH (RBC) [Entitic mass] 28.8 pg 27.0-32.0 [facility] Nucleated RBC/100 WBC (Bld) [Ratio] 0 % 0-5 [facility] MCHC Auto (RBC) [Mass/Vol]Or dered By: Dr. Carvajal on 06-17-2022 MCHC (RBC) [Mass/Vol] 31.1 g/dL 32-36 [facility] No Panel InformationOrdered By: Dr. Carvajal on 06-17-2022 Estimated GFR (MDRD) Amer 86 mL/min >60 [facility] Comment on above: GFR Calc Estimated GFR (MDRD) Non-Af Amer 71 mL/min >60 [facility] Comment on above: Non- GFR Calc Platelets bldOrdered By: Dr. Carvajal on 06-17-2022 Platelets (Bld) [#/Vol] 366 10*3/uL 150-450 [facility] Serum or plasma albumin kayli urement (mass/volume)Ordered By: Dr. Carvajal on 06-17-2022 Albumin [Mass/Vol] 3.4 g/dL 3.2-5.0 [facility] Serum or plasma albumin/glob ulin mass ratioOrdered By: Dr. Carvajal on 06-17-2022 Albumin/Globulin [Mass ratio] 1.1 {ratio} 0.9-2.4 [facility] Serum or plasma calcium kayli urement (mass/volume)Ordered By: Dr. Carvajal on 06-17-2022 Calcium [Mass/Vol] 8.9 mg/dL 8.5-10.1 [facility] Serum or plasma creatinine m easurement (mass/volume)Ordered By: Dr. Carvajal on 06-17-2022 Creatinine [Mass/Vol] 0.91 mg/dL 0.55-1.02 [facility] Comment on above: The validity of the calculated GFR & GFRAA in patients over 70 years has not been determined. Clinical correlation is essential. Serum or plasma urea nitroge n measurement (mass/volume)Ordered By: Dr. Carvajal on 06-17-2022 Urea nitrogen [Mass/Vol] 12 mg/dL 7-18 [facility] Thin prep Papanicolaou smear with manual screeningOrdered By: Dr. Carvajal on 06-17-2022 Thin prep Papanicolaou smear with manual screening 79 U/L 15-37 [facility] Thin prep Papanicolaou smear with manual screening 8 5-15 [facility] No Panel InformationOrdered By: Dr. Pollard on 04-21-2022 [place] Level 0.40 mmol/L 0.60-1.20 [facility] Vitamin D 25-Hydroxy 21.7 ng/mL [facility] Comment on above: Vitamin D 25(OH) Sta tus Range Deficiency <20 ng/mL (50nmol/L) Insufficiency 20 - 30 ng/mL (50 - 75 nmol/L) Sufficiency 30 - 100 ng/mL (75 - 250 nmol/L) Toxicity >100 ng/mL (>250 nmol/L) Whole blood hemoglobin A1c/t otal hemoglobin ratio (mass fraction)Ordered By: Dr. Pollard on 04-21-2022 HbA1c (Bld) [Mass fraction] 5.6 % 3.8-5.6 [facility] Comment on above: Normal < 5.7 % Predi abetic 5.7 - 6.4 % Diabetic >or= 6.5 % Please note range changes. Basophil percentageOrdered B y: Dr. Carvajal on 04-20-2022 Bilirubin [Mass/Vol] 0.40 mg/dL 0.20-1.00 [facility] Comment on above: For patients on eltr ombopag therapy, use of Dimension [place]ron TBIL is not recommended. Chloride [Moles/Vol] 108 mmol/L 98-107 [facility] Glucose [Mass/Vol] 183 mg/dL 74-106 [facility] Comment on above: Fasting Glucose resu lt greater than or equal to 126 mg/dL suggests DIABETES MELLITUS per A.D.A. criteria. Potassium [Moles/Vol] 4.0 mmol/L 3.5-5.1 [facility] Protein [Mass/Vol] 6.5 g/dL 6.4-8.2 [facility] Sodium [Moles/Vol] 139 mmol/L 136-145 [facility] Laboratory - Chemistry and C hemistry - challengeOrdered By: Dr. Carvajal on 04-20-2022 ALP [Catalytic activity/Vol] 73 U/L 45-117 [facility] ALT [Catalytic activity/Vol] 36 U/L 13-56 [facility] CO2 [Moles/Vol] 25.0 mmol/L 21.0-32.0 [facility] Globulin (S) [Mass/Vol] 3.0 g/dL 2.2-4.2 [facility] Urea nitrogen/Creatinine [Mass ratio] 9.1 mg/mg 10-20 [facility] No Panel InformationOrdered By: Dr. Carvajal on 04-20-2022 Estimated GFR (MDRD) Amer 78 mL/min >60 [facility] Comment on above: GFR Calc Estimated GFR (MDRD) Non-Af Amer 65 mL/min >60 [facility] Comment on above: Non- GFR Calc Serum or plasma albumin kayli urement (mass/volume)Ordered By: Dr. Carvajal on 04-20-2022 Albumin [Mass/Vol] 3.5 g/dL 3.2-5.0 [facility] Serum or plasma albumin/glob ulin mass ratioOrdered By: Dr. Carvajal on 04-20-2022 Albumin/Globulin [Mass ratio] 1.2 {ratio} 0.9-2.4 [facility] Serum or plasma calcium kayli urement (mass/volume)Ordered By: Dr. Carvajal on 04-20-2022 Calcium [Mass/Vol] 8.7 mg/dL 8.5-10.1 [facility] Serum or plasma creatinine m easurement (mass/volume)Ordered By: Dr. Carvajal on 04-20-2022 Creatinine [Mass/Vol] 0.98 mg/dL 0.55-1.02 [facility] Comment on above: The validity of the calculated GFR & GFRAA in patients over 70 years has not been determined. Clinical correlation is essential. Serum or plasma urea nitroge n measurement (mass/volume)Ordered By: Dr. Carvajal on 04-20-2022 Urea nitrogen [Mass/Vol] 9 mg/dL 7-18 [facility] Thin prep Papanicolaou smear with manual screeningOrdered By: Dr. Carvajal on 04-20-2022 Thin prep Papanicolaou smear with manual screening 21 U/L 15-37 [facility] Thin prep Papanicolaou smear with manual screening 6 5-15 [facility] Absolute lymphocyte countOrd ered By: Dr. Carvajal on 03-19-2022 Lymphocytes Auto (Unsp spec) [#/Vol] 2.50 10*3/uL 0.83-4.51 [facility] Basophil percentageOrdered B y: Dr. Carvajal on 03-19-2022 Basophils/100 WBC (Bld) 0.6 % 0-1 [facility] Bilirubin [Mass/Vol] 0.40 mg/dL 0.20-1.00 [facility] Comment on above: For patients on eltr ombopag therapy, use of Dimension [place]ron TBIL is not recommended. Chloride [Moles/Vol] 112 mmol/L 98-107 [facility] Eosinophils/100 WBC (Bld) 2.1 % 0-5 [facility] Glucose [Mass/Vol] 129 mg/dL 74-106 [facility] Comment on above: Fasting Glucose resu lt greater than or equal to 126 mg/dL suggests DIABETES MELLITUS per A.D.A. criteria. Neutrophils (Bld) [#/Vol] 7.3 10*3/uL 2.0-7.7 [facility] Neutrophils/100 WBC (Bld) 67.3 % 47-70 [facility] Potassium [Moles/Vol] 3.9 mmol/L 3.5-5.1 [facility] Protein [Mass/Vol] 6.5 g/dL 6.4-8.2 [facility] Sodium [Moles/Vol] 142 mmol/L 136-145 [facility] WBC (Bld) [#/Vol] 10.9 10*3/uL 4.4-11.0 [facility] Blood erythrocytes count (nu mber/volume)Ordered By: Dr. Carvajal on 03-19-2022 RBC (Bld) [#/Vol] 4.25 10*6/uL 4.2-5.4 [facility] Blood hemoglobin measurement (mass/volume)Ordered By: Dr. Carvajal on 03-19-2022 Hemoglobin (Bld) [Mass/Vol] 12.9 g/dL 12.0-15.0 [facility] Blood lymphocytes/100 leukoc ytesOrdered By: Dr. Carvajal on 03-19-2022 Lymphocytes/100 WBC (Bld) 23.0 % 19-41 [facility] Blood monocytes/100 leukocyt esOrdered By: Dr. Carvajal on 03-19-2022 Monocytes/100 WBC (Bld) 6.5 % 0-10 [facility] Blood platelet mean volumeOr dered By: Dr. Carvajal on 03-19-2022 Platelet mean volume (Bld) [Entitic vol] 10.0 fL 6.2-12.0 [facility] Determination of erythrocyte mean corpuscular volume (MCV)Ordered By: Dr. Carvajal on 03-19-2022 MCV (RBC) [Entitic vol] 93.4 fL 81-99 [facility] Hematocrit Auto (Bld) [Volum e fraction]Ordered By: Dr. Carvajal on 03-19-2022 Hematocrit (Bld) [Volume fraction] 39.7 % 37-47 [facility] Laboratory - Chemistry and C hemistry - challengeOrdered By: Dr. Carvajal on 03-19-2022 ALP [Catalytic activity/Vol] 72 U/L 45-117 [facility] ALT [Catalytic activity/Vol] 77 U/L 13-56 [facility] CO2 [Moles/Vol] 22.0 mmol/L 21.0-32.0 [facility] Globulin (S) [Mass/Vol] 3.3 g/dL 2.2-4.2 [facility] Urea nitrogen/Creatinine [Mass ratio] 10.1 mg/mg 10-20 [facility] Laboratory - Hematology and Cell countsOrdered By: Dr. Carvajal on 03-19-2022 Erythrocyte distribution width (RBC) [Entitic vol] 51.1 fL 35.1-43.9 [facility] Erythrocyte distribution width (RBC) [Ratio] 15.1 % 11.6-14.6 [facility] Immature granulocytes/100 WBC (Bld) 0.500 % 0.0-0.9 [facility] Comment on above: IG% - Immature Granu locytes (promyelocytes, myelocytes and metamyelocytes) > 1% indicates that a LEFT SHIFT is Present. MCH (RBC) [Entitic mass] 30.4 pg 27.0-32.0 [facility] Nucleated RBC/100 WBC (Bld) [Ratio] 0 % 0-5 [facility] MCHC Auto (RBC) [Mass/Vol]Or dered By: Dr. Carvajal on 03-19-2022 MCHC (RBC) [Mass/Vol] 32.5 g/dL 32-36 [facility] No Panel InformationOrdered By: Dr. Carvajal on 03-19-2022 Estimated GFR (MDRD) Amer 70 mL/min >60 [facility] Comment on above: GFR Calc Estimated GFR (MDRD) Non-Af Amer 58 mL/min >60 [facility] Comment on above: Non- GFR Calc Platelets bldOrdered By: Dr. Carvajal on 03-19-2022 Platelets (Bld) [#/Vol] 363 10*3/uL 150-450 [facility] Serum or plasma albumin kayli urement (mass/volume)Ordered By: Dr. Carvajal on 03-19-2022 Albumin [Mass/Vol] 3.2 g/dL 3.2-5.0 [facility] Serum or plasma albumin/glob ulin mass ratioOrdered By: Dr. Carvajal on 03-19-2022 Albumin/Globulin [Mass ratio] 1.0 {ratio} 0.9-2.4 [facility] Serum or plasma calcium kayli urement (mass/volume)Ordered By: Dr. Carvajal on 03-19-2022 Calcium [Mass/Vol] 9.1 mg/dL 8.5-10.1 [facility] Serum or plasma creatinine m easurement (mass/volume)Ordered By: Dr. Carvajal on 03-19-2022 Creatinine [Mass/Vol] 1.09 mg/dL 0.55-1.02 [facility] Comment on above: The validity of the calculated GFR & GFRAA in patients over 70 years has not been determined. Clinical correlation is essential. Serum or plasma urea nitroge n measurement (mass/volume)Ordered By: Dr. Carvajal on 03-19-2022 Urea nitrogen [Mass/Vol] 11 mg/dL 7-18 [facility] Thin prep Papanicolaou smear with manual screeningOrdered By: Dr. Carvajal on 03-19-2022 Thin prep Papanicolaou smear with manual screening 33 U/L 15-37 [facility] Thin prep Papanicolaou smear with manual screening 8 5-15 [facility] Absolute lymphocyte counton 01-21-2022 Lymphocytes Auto (Unsp spec) [#/Vol] 1.87 10*3/uL 0.83-4.51 [facility] Work Phone: Basophil percentageon 2021 Basophils/100 WBC (Bld) 0.4 % 0-1 [facility] Work Phone: Bilirubin [Mass/Vol] 0.30 mg/dL 0.20-1.00 [facility] Work Phone: Comment on above: For patients on eltr ombopag therapy, use of Dimension [place] TBIL is not recommended. Chloride [Moles/Vol] 112 mmol/L 98-107 [facility] Work Phone: Eosinophils/100 WBC (Bld) 2.2 % 0-5 [facility] Work Phone: Glucose [Mass/Vol] 123 mg/dL 74-106 [facility] Work Phone: Comment on above: Fasting Glucose resu lt from 100 to 125 mg/dL suggests IMPAIRED HOMEOSTASIS per A.D.A. criteria. Neutrophils (Bld) [#/Vol] 8.3 10*3/uL 2.0-7.7 [facility] Work Phone: Neutrophils/100 WBC (Bld) 74.0 % 47-70 [facility] Work Phone: Potassium [Moles/Vol] 4.5 mmol/L 3.5-5.1 [facility] Work Phone: Protein [Mass/Vol] 6.8 g/dL 6.4-8.2 [facility] Work Phone: Sodium [Moles/Vol] 142 mmol/L 136-145 [facility] Work Phone: WBC (Bld) [#/Vol] 11.2 10*3/uL 4.4-11.0 [facility] Work Phone: Blood erythrocytes count (nu mber/volume)on 01-21-2022 RBC (Bld) [#/Vol] 4.55 10*6/uL 4.2-5.4 [facility] Work Phone: Blood hemoglobin measurement (mass/volume)on 01-21-2022 Hemoglobin (Bld) [Mass/Vol] 12.9 g/dL 12.0-15.0 [facility] Work Phone: Blood lymphocytes/100 leukoc yteson 01-21-2022 Lymphocytes/100 WBC (Bld) 16.8 % 19-41 [facility] Work Phone: Blood monocytes/100 leukocyt eson 01-21-2022 Monocytes/100 WBC (Bld) 5.9 % 0-10 [facility] Work Phone: Blood platelet mean volumeon 01-21-2022 Platelet mean volume (Bld) [Entitic vol] 9.4 fL 6.2-12.0 [facility] Work Phone: Determination of erythrocyte mean corpuscular volume (MCV)on 01-21-2022 MCV (RBC) [Entitic vol] 93.2 fL 81-99 [facility] Work Phone: Hematocrit Auto (Bld) [Volum e fraction]on 01-21-2022 Hematocrit (Bld) [Volume fraction] 42.4 % 37-47 [facility] Work Phone: [phone] Laboratory - Chemistry and C hemistry - challengeon 01-21-2022 ALP [Catalytic activity/Vol] 77 U/L 45-117 [facility] Work Phone: [phone] ALT [Catalytic activity/Vol] 42 U/L 13-56 [facility] Work Phone: [phone] CO2 [Moles/Vol] 24.0 mmol/L 21.0-32.0 [facility] Work Phone: [phone] Globulin (S) [Mass/Vol] 3.7 g/dL 2.2-4.2 [facility] Work Phone: [phone] Urea nitrogen/Creatinine [Mass ratio] 8.7 mg/mg 10-20 [facility] Work Phone: [phone] Laboratory - Hematology and Cell countson 01-21-2022 Erythrocyte distribution width (RBC) [Entitic vol] 49.0 fL 35.1-43.9 [facility] Work Phone: [phone] Erythrocyte distribution width (RBC) [Ratio] 14.8 % 11.6-14.6 [facility] Work Phone: [phone] Immature granulocytes/100 WBC (Bld) 0.700 % 0.0-0.9 [facility] Work Phone: [phone] Comment on above: IG% - Immature Granu locytes (promyelocytes, myelocytes and metamyelocytes) > 1% indicates that a LEFT SHIFT is Present. MCH (RBC) [Entitic mass] 28.4 pg 27.0-32.0 [facility] Work Phone: [phone] Nucleated RBC/100 WBC (Bld) [Ratio] 0 % 0-5 [facility] Work Phone: [phone] MCHC Auto (RBC) [Mass/Vol]on 01-21-2022 MCHC (RBC) [Mass/Vol] 30.4 g/dL 32-36 [facility] Work Phone: [phone] Panel Informationon 01-21 Estimated GFR (MDRD) Amer 74 mL/min >60 [facility] Work Phone: Comment on above: GFR Calc Estimated GFR (MDRD) Non-Af Amer 61 mL/min >60 [facility] Work Phone: Comment on above: Non- GFR Calc Platelets bldon 01-21-2022 Platelets (Bld) [#/Vol] 384 10*3/uL 150-450 [facility] Work Phone: Serum or plasma albumin kayli urement (mass/volume)on 01-21-2022 Albumin [Mass/Vol] 3.1 g/dL 3.2-5.0 [facility] Work Phone: Serum or plasma albumin/glob ulin mass ratioon 01-21-2022 Albumin/Globulin [Mass ratio] 0.8 {ratio} 0.9-2.4 [facility] Work Phone: Serum or plasma calcium kayli urement (mass/volume)on 01-21-2022 Calcium [Mass/Vol] 9.1 mg/dL 8.5-10.1 [facility] Work Phone: Serum or plasma creatinine m easurement (mass/volume)on 01-21-2022 Creatinine [Mass/Vol] 1.03 mg/dL 0.55-1.02 [facility] Work Phone: Comment on above: The validity of the calculated GFR & GFRAA in patients over 70 years has not been determined. Clinical correlation is essential. Serum or plasma urea nitroge n measurement (mass/volume)on 01-21-2022 Urea nitrogen [Mass/Vol] 9 mg/dL 7-18 [facility] Work Phone: Thin prep Papanicolaou smear with manual screeningon 01-21-2022 Thin prep Papanicolaou smear with manual screening 18 U/L 15-37 [facility] Work Phone: Thin prep Papanicolaou smear with manual screening 6 5-15 [facility] Work Phone: Absolute lymphocyte counton 12-15-2021 Lymphocytes Auto (Unsp spec) [#/Vol] 2.69 10*3/uL 0.83-4.51 [facility] Work Phone: Basophil percentageon 2021 Basophils/100 WBC (Bld) 0.5 % 0-1 [facility] Work Phone: Bilirubin [Mass/Vol] 0.30 mg/dL 0.20-1.00 [facility] Work Phone: Comment on above: For patients on eltr ombopag therapy, use of Dimension [place] TBIL is not recommended. Chloride [Moles/Vol] 110 mmol/L 98-107 [facility] Work Phone: Eosinophils/100 WBC (Bld) 1.9 % 0-5 [facility] Work Phone: Glucose [Mass/Vol] 102 mg/dL 74-106 [facility] Work Phone: Comment on above: Fasting Glucose resu lt from 100 to 125 mg/dL suggests IMPAIRED HOMEOSTASIS per A.D.A. criteria. Neutrophils (Bld) [#/Vol] 8.2 10*3/uL 2.0-7.7 [facility] Work Phone: Neutrophils/100 WBC (Bld) 67.9 % 47-70 [facility] Work Phone: Potassium [Moles/Vol] 4.2 mmol/L 3.5-5.1 [facility] Work Phone: Protein [Mass/Vol] 6.8 g/dL 6.4-8.2 [facility] Work Phone: Sodium [Moles/Vol] 141 mmol/L 136-145 [facility] Work Phone: WBC (Bld) [#/Vol] 12.1 10*3/uL 4.4-11.0 [facility] Work Phone: Blood erythrocytes count (nu mber/volume)on 12-15-2021 RBC (Bld) [#/Vol] 4.65 10*6/uL 4.2-5.4 [facility] Work Phone: [phone] Blood hemoglobin measurement (mass/volume)on 12-15-2021 Hemoglobin (Bld) [Mass/Vol] 13.3 g/dL 12.0-15.0 [facility] Work Phone: [phone] Blood lymphocytes/100 leukoc yteson 12-15-2021 Lymphocytes/100 WBC (Bld) 22.3 % 19-41 [facility] Work Phone: [phone] Blood monocytes/100 leukocyt eson 12-15-2021 Monocytes/100 WBC (Bld) 7.0 % 0-10 [facility] Work Phone: [phone] Blood platelet mean volumeon 12-15-2021 Platelet mean volume (Bld) [Entitic vol] 9.6 fL 6.2-12.0 [facility] Work Phone: [phone] Determination of erythrocyte mean corpuscular volume (MCV)on 12-15-2021 MCV (RBC) [Entitic vol] 91.6 fL 81-99 [facility] Work Phone: [phone] Hematocrit Auto (Bld) [Volum e fraction]on 12-15-2021 Hematocrit (Bld) [Volume fraction] 42.6 % 37-47 [facility] Work Phone: Laboratory - Chemistry and C hemistry - challengeon 12-15-2021 ALP [Catalytic activity/Vol] 69 U/L 45-117 [facility] Work Phone: [phone] ALT [Catalytic activity/Vol] 41 U/L 13-56 [facility] Work Phone: [phone] CO2 [Moles/Vol] 26.0 mmol/L 21.0-32.0 [facility] Work Phone: [phone] Globulin (S) [Mass/Vol] 3.5 g/dL 2.2-4.2 [facility] Work Phone: [phone] Urea nitrogen/Creatinine [Mass ratio] 13.5 mg/mg 10-20 [facility] Work Phone: [phone] Laboratory - Hematology and Cell countson 12-15-2021 Erythrocyte distribution width (RBC) [Entitic vol] 49.1 fL 35.1-43.9 [facility] Work Phone: [phone] Erythrocyte distribution width (RBC) [Ratio] 14.8 % 11.6-14.6 [facility] Work Phone: [phone] Immature granulocytes/100 WBC (Bld) 0.400 % 0.0-0.9 [facility] Work Phone: [phone] Comment on above: IG% - Immature Granu locytes (promyelocytes, myelocytes and metamyelocytes) > 1% indicates that a LEFT SHIFT is Present. MCH (RBC) [Entitic mass] 28.6 pg 27.0-32.0 [facility] Work Phone: [phone] Nucleated RBC/100 WBC (Bld) [Ratio] 0 % 0-5 [facility] Work Phone: [phone] MCHC Auto (RBC) [Mass/Vol]on 12-15-2021 MCHC (RBC) [Mass/Vol] 31.2 g/dL 32-36 [facility] Work Phone: [phone] Panel Informationon 12-15 Estimated GFR (MDRD) Amer 68 mL/min >60 [facility] Work Phone: [phone] Comment on above: GFR Calc Estimated GFR (MDRD) Non-Af Amer 56 mL/min >60 [facility] Work Phone: [phone] Comment on above: Non- GFR Calc Platelets bldon 12-15-2021 Platelets (Bld) [#/Vol] 312 10*3/uL 150-450 [facility] Work Phone: [phone] Serum or plasma albumin kayli urement (mass/volume)on 12-15-2021 Albumin [Mass/Vol] 3.3 g/dL 3.2-5.0 [facility] Work Phone: [phone] Serum or plasma albumin/glob ulin mass ratioon 12-15-2021 Albumin/Globulin [Mass ratio] 0.9 {ratio} 0.9-2.4 [facility] Work Phone: [phone] Serum or plasma calcium kayli urement (mass/volume)on 12-15-2021 Calcium [Mass/Vol] 9.0 mg/dL 8.5-10.1 [facility] Work Phone: Serum or plasma creatinine m easurement (mass/volume)on 12-15-2021 Creatinine [Mass/Vol] 1.11 mg/dL 0.55-1.02 [facility] Work Phone: Comment on above: The validity of the calculated GFR & GFRAA in patients over 70 years has not been determined. Clinical correlation is essential. Serum or plasma urea nitroge n measurement (mass/volume)on 12-15-2021 Urea nitrogen [Mass/Vol] 15 mg/dL 7-18 [facility] Work Phone: Thin prep Papanicolaou smear with manual screeningon 12-15-2021 Thin prep Papanicolaou smear with manual screening 15 U/L 15-37 [facility] Work Phone: Thin prep Papanicolaou smear with manual screening 5 5-15 [facility] Work Phone: Laboratory - Microbiology an d Antimicrobial susceptibilityon 09-22-2021 SARS-CoV-2 (COVID-19) RNA LEANN+probe Ql (Unsp spec) Not detected Not Detect [facility] Work Phone: Comment on above: Normal Reference Ran ge: Not DetectedMethod:(RT-PCR) real-time reverse transcriptase PCRLuminex VINCENT Instrument*The Food and Drug Administration (FDA) has issued an Emergency Use Authorization (EAU) for the VINCENT SARS-CoV-2 Assay for the rapid detection of the virus that causes COVID-19. This test has been validated, but the FDAs independent review of this validation is pending.*Negative results do not preclude infection and should not be used as the sole basis for treatment or patient management. Optimum specimen types and timing for peak viral levels during infections caused by SARS-CoV-2 have not been determined. Collection of multiple specimens from the same patient may be necessary to detect the virus. The possibility of a false negative result should be considered if the patient has clinical presentation or has had recent exposure. Absolute lymphocyte counton 09-11-2021 Lymphocytes Auto (Unsp spec) [#/Vol] 1.49 10*3/uL 0.83-4.51 [facility] Work Phone: Basophil percentageon 2021 Basophils/100 WBC (Bld) 0.4 % 0-1 [facility] Work Phone: Bilirubin [Mass/Vol] 0.40 mg/dL 0.20-1.00 [facility] Work Phone: Comment on above: For patients on eltr ombopag therapy, use of Dimension Catron TBIL is not recommended. Chloride [Moles/Vol] 111 mmol/L 98-107 [facility] Work Phone: Eosinophils/100 WBC (Bld) 1.3 % 0-5 [facility] Work Phone: Glucose [Mass/Vol] 129 mg/dL 74-106 [facility] Work Phone: Comment on above: Fasting Glucose resu lt greater than or equal to 126 mg/dL suggests DIABETES MELLITUS per A.D.A. criteria. Neutrophils (Bld) [#/Vol] 7.3 10*3/uL 2.0-7.7 [facility] Work Phone: Neutrophils/100 WBC (Bld) 76.4 % 47-70 [facility] Work Phone: Potassium [Moles/Vol] 4.4 mmol/L 3.5-5.1 [facility] Work Phone: Protein [Mass/Vol] 6.6 g/dL 6.4-8.2 [facility] Work Phone: Sodium [Moles/Vol] 139 mmol/L 136-145 [facility] Work Phone: WBC (Bld) [#/Vol] 9.6 10*3/uL 4.4-11.0 [facility] Work Phone: Blood erythrocytes count (nu mber/volume)on 09-11-2021 RBC (Bld) [#/Vol] 4.61 10*6/uL 4.2-5.4 [facility] Work Phone: Blood hemoglobin measurement (mass/volume)on 09-11-2021 Hemoglobin (Bld) [Mass/Vol] 12.9 g/dL 12.0-15.0 [facility] Work Phone: Blood lymphocytes/100 leukoc yteson 09-11-2021 Lymphocytes/100 WBC (Bld) 15.6 % 19-41 [facility] Work Phone: [phone] Blood monocytes/100 leukocyt eson 09-11-2021 Monocytes/100 WBC (Bld) 5.9 % 0-10 [facility] Work Phone: Blood platelet mean volumeon 09-11-2021 Platelet mean volume (Bld) [Entitic vol] 9.5 fL 6.2-12.0 [facility] Work Phone: Determination of erythrocyte mean corpuscular volume (MCV)on 09-11-2021 MCV (RBC) [Entitic vol] 90.2 fL 81-99 [facility] Work Phone: Hematocrit Auto (Bld) [Volum e fraction]on 09-11-2021 Hematocrit (Bld) [Volume fraction] 41.6 % 37-47 [facility] Work Phone: Laboratory - Chemistry and C hemistry - challengeon 09-11-2021 ALP [Catalytic activity/Vol] 71 U/L 45-117 [facility] Work Phone: ALT [Catalytic activity/Vol] 34 U/L 13-56 [facility] Work Phone: [phone] CO2 [Moles/Vol] 21.0 mmol/L 21.0-32.0 [facility] Work Phone: Globulin (S) [Mass/Vol] 3.4 g/dL 2.2-4.2 [facility] Work Phone: Urea nitrogen/Creatinine [Mass ratio] 12.1 mg/mg 10-20 [facility] Work Phone: Laboratory - Hematology and Cell countson 09-11-2021 Erythrocyte distribution width (RBC) [Entitic vol] 49.2 fL 35.1-43.9 [facility] Work Phone: [phone] Erythrocyte distribution width (RBC) [Ratio] 15.1 % 11.6-14.6 [facility] Work Phone: [phone] Immature granulocytes/100 WBC (Bld) 0.400 % 0.0-0.9 [facility] Work Phone: [phone] Comment on above: IG% - Immature Granu locytes (promyelocytes, myelocytes and metamyelocytes) > 1% indicates that a LEFT SHIFT is Present. MCH (RBC) [Entitic mass] 28.0 pg 27.0-32.0 [facility] Work Phone: [phone] Nucleated RBC/100 WBC (Bld) [Ratio] 0 % 0-5 [facility] Work Phone: [phone] MCHC Auto (RBC) [Mass/Vol]on 09-11-2021 MCHC (RBC) [Mass/Vol] 31.0 g/dL 32-36 [facility] Work Phone: [phone] Panel Informationon 09-11 Estimated GFR (MDRD) Amer 78 mL/min >60 [facility] Work Phone: [phone] Comment on above: GFR Calc Estimated GFR (MDRD) Non-Af Amer 64 mL/min >60 [facility] Work Phone: [phone] Comment on above: Non- GFR Calc Platelets bldon 09-11-2021 Platelets (Bld) [#/Vol] 361 10*3/uL 150-450 [facility] Work Phone: [phone] Serum or plasma albumin kayli urement (mass/volume)on 09-11-2021 Albumin [Mass/Vol] 3.2 g/dL 3.2-5.0 [facility] Work Phone: [phone] Serum or plasma albumin/glob ulin mass ratioon 09-11-2021 Albumin/Globulin [Mass ratio] 0.9 {ratio} 0.9-2.4 [facility] Work Phone: Serum or plasma calcium kayli urement (mass/volume)on 09-11-2021 Calcium [Mass/Vol] 8.8 mg/dL 8.5-10.1 [facility] Work Phone: [phone] Serum or plasma creatinine m easurement (mass/volume)on 09-11-2021 Creatinine [Mass/Vol] 0.99 mg/dL 0.55-1.02 [facility] Work Phone: Comment on above: The validity of the calculated GFR & GFRAA in patients over 70 years has not been determined. Clinical correlation is essential. Serum or plasma urea nitroge n measurement (mass/volume)on 09-11-2021 Urea nitrogen [Mass/Vol] 12 mg/dL 7-18 [facility] Work Phone: Thin prep Papanicolaou smear with manual screeningon 09-11-2021 Thin prep Papanicolaou smear with manual screening 19 U/L 15-37 [facility] Work Phone: Thin prep Papanicolaou smear with manual screening 7 5-15 [facility] Work Phone: Absolute lymphocyte counton 07-09-2021 Lymphocytes Auto (Unsp spec) [#/Vol] 1.58 10*3/uL 0.83-4.51 [facility] Work Phone: Basophil percentageon 2021 Basophils/100 WBC (Bld) 0.7 % 0-1 [facility] Work Phone: Eosinophils/100 WBC (Bld) 1.3 % 0-5 [facility] Work Phone: Neutrophils (Bld) [#/Vol] 5.9 10*3/uL 2.0-7.7 [facility] Work Phone: Neutrophils/100 WBC (Bld) 72.4 % 47-70 [facility] Work Phone: WBC (Bld) [#/Vol] 8.2 10*3/uL 4.4-11.0 [facility] Work Phone: Blood erythrocytes count (nu mber/volume)on 07-09-2021 RBC (Bld) [#/Vol] 4.74 10*6/uL 4.2-5.4 [facility] Work Phone: Blood hemoglobin measurement (mass/volume)on 07-09-2021 Hemoglobin (Bld) [Mass/Vol] 13.4 g/dL 12.0-15.0 [facility] Work Phone: [phone] Blood lymphocytes/100 leukoc yteson 07-09-2021 Lymphocytes/100 WBC (Bld) 19.4 % 19-41 [facility] Work Phone: [phone] Blood monocytes/100 leukocyt eson 07-09-2021 Monocytes/100 WBC (Bld) 6.0 % 0-10 [facility] Work Phone: Blood platelet mean volumeon 07-09-2021 Platelet mean volume (Bld) [Entitic vol] 9.7 fL 6.2-12.0 [facility] Work Phone: Determination of erythrocyte mean corpuscular volume (MCV)on 07-09-2021 MCV (RBC) [Entitic vol] 89.9 fL 81-99 [facility] Work Phone: Hematocrit Auto (Bld) [Volum e fraction]on 07-09-2021 Hematocrit (Bld) [Volume fraction] 42.6 % 37-47 [facility] Work Phone: [phone] Iron measurement (mass/mass) on 07-09-2021 Iron (Unsp spec) [Mass/Mass] 115 ug/dL 50-170 [facility] Work Phone: Laboratory - Hematology and Cell countson 07-09-2021 Erythrocyte distribution width (RBC) [Entitic vol] 47.3 fL 35.1-43.9 [facility] Work Phone: [phone] Erythrocyte distribution width (RBC) [Ratio] 14.3 % 11.6-14.6 [facility] Work Phone: Immature granulocytes/100 WBC (Bld) 0.200 % 0.0-0.9 [facility] Work Phone: [phone] Comment on above: IG% - Immature Granu locytes (promyelocytes, myelocytes and metamyelocytes) > 1% indicates that a LEFT SHIFT is Present. MCH (RBC) [Entitic mass] 28.3 pg 27.0-32.0 [facility] Work Phone: [phone] Nucleated RBC/100 WBC (Bld) [Ratio] 0 % 0-5 [facility] Work Phone: [phone] MCHC Auto (RBC) [Mass/Vol]on 07-09-2021 MCHC (RBC) [Mass/Vol] 31.5 g/dL 32-36 [facility] Work Phone: [phone] Panel Informationon 07-09 Thyroid Stimulating Hormone (TSH) 0.72 uIU/mL 0.358-3.74 [facility] Work Phone: [phone] Total Iron Binding Capacity 382 ug/dL 250-450 [facility] Work Phone: [phone] Vitamin D 25-Hydroxy 20.1 ng/mL [facility] Work Phone: [phone] Comment on above: Vitamin D 25(OH) Sta tus Range Deficiency <20 ng/mL (50nmol/L) Insufficiency 20 - 30 ng/mL (50 - 75 nmol/L) Sufficiency 30 - 100 ng/mL (75 - 250 nmol/L) Toxicity >100 ng/mL (>250 nmol/L) Platelets bldon 07-09-2021 Platelets (Bld) [#/Vol] 340 10*3/uL 150-450 [facility] Work Phone: [phone] Serum or plasma ferritin elisa surement (mass/volume)on 07-09-2021 Ferritin [Mass/Vol] 44 ng/mL 8-252 [facility] Work Phone: [phone] blood hemoglobin A1c/t otal hemoglobin ratio (mass fraction)on 07-09-2021 HbA1c (Bld) [Mass fraction] 5.4 % 3.8-5.6 [facility] Work Phone: Comment on above: Normal < 5.7 % Predi abetic 5.7 - 6.4 % Diabetic >or= 6.5 % Please note range changes. Absolute lymphocyte counton 06-13-2021 Lymphocytes Auto (Unsp spec) [#/Vol] 1.90 10*3/uL 0.83-4.51 [facility] Work Phone: Basophil percentageon 2021 Basophils/100 WBC (Bld) 0.5 % 0-1 [facility] Work Phone: Bilirubin [Mass/Vol] 0.40 mg/dL 0.20-1.00 [facility] Work Phone: Comment on above: For patients on eltr ombopag therapy, use of Dimension Catron TBIL is not recommended. Chloride [Moles/Vol] 111 mmol/L 98-107 [facility] Work Phone: Eosinophils/100 WBC (Bld) 1.8 % 0-5 [facility] Work Phone: Glucose [Mass/Vol] 104 mg/dL 74-106 [facility] Work Phone: Comment on above: Fasting Glucose resu lt from 100 to 125 mg/dL suggests IMPAIRED HOMEOSTASIS per A.D.A. criteria. Neutrophils (Bld) [#/Vol] 6.7 10*3/uL 2.0-7.7 [facility] Work Phone: Neutrophils/100 WBC (Bld) 71.3 % 47-70 [facility] Work Phone: Potassium [Moles/Vol] 4.0 mmol/L 3.5-5.1 [facility] Work Phone: Protein [Mass/Vol] 7.1 g/dL 6.4-8.2 [facility] Work Phone: Sodium [Moles/Vol] 140 mmol/L 136-145 [facility] Work Phone: WBC (Bld) [#/Vol] 9.5 10*3/uL 4.4-11.0 [facility] Work Phone: [phone] Blood erythrocytes count (nu mber/volume)on 06-13-2021 RBC (Bld) [#/Vol] 4.73 10*6/uL 4.2-5.4 [facility] Work Phone: Blood hemoglobin measurement (mass/volume)on 06-13-2021 Hemoglobin (Bld) [Mass/Vol] 13.0 g/dL 12.0-15.0 [facility] Work Phone: [phone] Blood lymphocytes/100 leukoc yteson 06-13-2021 Lymphocytes/100 WBC (Bld) 20.1 % 19-41 [facility] Work Phone: [phone] Blood monocytes/100 leukocyt eson 06-13-2021 Monocytes/100 WBC (Bld) 5.8 % 0-10 [facility] Work Phone: [phone] Blood platelet mean volumeon 06-13-2021 Platelet mean volume (Bld) [Entitic vol] 9.2 fL 6.2-12.0 [facility] Work Phone: [phone] Determination of erythrocyte mean corpuscular volume (MCV)on 06-13-2021 MCV (RBC) [Entitic vol] 89.6 fL 81-99 [facility] Work Phone: [phone] Hematocrit Auto (Bld) [Volum e fraction]on 06-13-2021 Hematocrit (Bld) [Volume fraction] 42.4 % 37-47 [facility] Work Phone: [phone] Laboratory - Chemistry and C hemistry - challengeon 06-13-2021 ALP [Catalytic activity/Vol] 83 U/L 45-117 [facility] Work Phone: [phone] ALT [Catalytic activity/Vol] 32 U/L 13-56 [facility] Work Phone: [phone] CO2 [Moles/Vol] 24.0 mmol/L 21.0-32.0 [facility] Work Phone: Globulin (S) [Mass/Vol] 3.7 g/dL 2.2-4.2 [facility] Work Phone: [phone] Urea nitrogen/Creatinine [Mass ratio] 10.1 mg/mg 10-20 [facility] Work Phone: [phone] Laboratory - Hematology and Cell countson 06-13-2021 Erythrocyte distribution width (RBC) [Entitic vol] 49.5 fL 35.1-43.9 [facility] Work Phone: [phone] Erythrocyte distribution width (RBC) [Ratio] 15.2 % 11.6-14.6 [facility] Work Phone: [phone] Immature granulocytes/100 WBC (Bld) 0.500 % 0.0-0.9 [facility] Work Phone: [phone] Comment on above: IG% - Immature Granu locytes (promyelocytes, myelocytes and metamyelocytes) > 1% indicates that a LEFT SHIFT is Present. MCH (RBC) [Entitic mass] 27.5 pg 27.0-32.0 [facility] Work Phone: [phone] Nucleated RBC/100 WBC (Bld) [Ratio] 0 % 0-5 [facility] Work Phone: [phone] MCHC Auto (RBC) [Mass/Vol]on 06-13-2021 MCHC (RBC) [Mass/Vol] 30.7 g/dL 32-36 [facility] Work Phone: [phone] Panel Informationon 06-13 Estimated GFR (MDRD) Amer 88 mL/min >60 [facility] Work Phone: [phone] Comment on above: GFR Calc Estimated GFR (MDRD) Non-Af Amer 72 mL/min >60 [facility] Work Phone: [phone] Comment on above: Non- GFR Calc Platelets bldon 06-13-2021 Platelets (Bld) [#/Vol] 347 10*3/uL 150-450 [facility] Work Phone: [phone] Serum or plasma albumin kayli urement (mass/volume)on 06-13-2021 Albumin [Mass/Vol] 3.4 g/dL 3.2-5.0 [facility] Work Phone: Serum or plasma albumin/glob ulin mass ratioon 06-13-2021 Albumin/Globulin [Mass ratio] 0.9 {ratio} 0.9-2.4 [facility] Work Phone: Serum or plasma calcium kayli urement (mass/volume)on 06-13-2021 Calcium [Mass/Vol] 8.6 mg/dL 8.5-10.1 [facility] Work Phone: Serum or plasma creatinine m easurement (mass/volume)on 06-13-2021 Creatinine [Mass/Vol] 0.90 mg/dL 0.55-1.02 [facility] Work Phone: Comment on above: The validity of the calculated GFR & GFRAA in patients over 70 years has not been determined. Clinical correlation is essential. Serum or plasma urea nitroge n measurement (mass/volume)on 06-13-2021 Urea nitrogen [Mass/Vol] 9 mg/dL 7-18 [facility] Work Phone: Thin prep Papanicolaou smear with manual screeningon 06-13-2021 Thin prep Papanicolaou smear with manual screening 17 U/L 15-37 [facility] Work Phone: Thin prep Papanicolaou smear with manual screening 5 5-15 [facility] Work Phone: No Panel Information Respiratory Panel (PCR) Rhinovirus [facility] Work Phone: Vital Signs Date Time Vital Sign Value Performing Clinician Faci lity 12-26-2024 09:04-0400 Body height 170.[address] Keri Pollard MD Work Phone: [facility] 12-26-2024 09:04-0400 Body mass index (BMI) [Ratio] 43.8 kg/m2 Dr. Keri Pollard MD Work Phone: [facility] 12-26-2024 09:04-0400 Body temperature 97.8 [degF] Dr. Keri Pollard MD Work Phone: [facility] 12-26-2024 09:04-0400 Body weight [address] Keri Pollard MD Work Phone: [facility] 12-26-2024 09:04-0400 Diastolic blood pressure 78 mm[Hg] Dr. Keri Pollard MD Work Phone: [facility] 12-26-2024 09:04-0400 Heart rate 72 /min Dr. Keri Pollard MD Work Phone: [facility] 12-26-2024 09:04-0400 Respiratory rate 18 /min Dr. Keri Pollard MD Work Phone: [facility] 12-26-2024 09:04-0400 Systolic blood pressure 124 mm[Hg] Dr. Keri Pollard MD Work Phone: [facility] 03-17-2023 09:12-0400 Body height 170.2 cm Reymundo Escamilla MD Work Phone: [facility] 03-17-2023 09:12-0400 Body temperature 97.7 [degF] Reymundo Escamilla MD Work Phone: [facility] 03-17-2023 09:12-0400 Body weight 127.46 kg Reymundo Escamilla MD Work Phone: [facility] 03-17-2023 09:12-0400 Diastolic blood pressure 78 mm[Hg] Reymundo Escamilla MD Work Phone: [facility] 03-17-2023 09:12-0400 Heart rate 82 /min Reymundo Escamilla MD Work Phone: [facility] 03-17-2023 09:12-0400 SaO2% (BldA) [Mass fraction] 97 % Reymundo Escamilla MD Work Phone: [facility] 03-17-2023 09:12-0400 Systolic blood pressure 126 mm[Hg] Reymundo Escamilla MD Work Phone: [facility] 04-23-2022 16:54-0500 Body height 170.18 cm [facility] 04-23-2022 16:54-0500 Body weight 127.45 kg [facility] Encounters Encounter Date Encounter Type Care Provider Facility Start: 01-16-2025 ambulatory Carito Coulterlay Facility :[facility] Start: 01-03-2025 End: 01-03-2025 ambulatory [facility] Start: 01-03-2025 Encounter for gynecological examination (general) (routine) without abnormal findings [facility] Start: 12-29-2024 End: 12-29-[address] Keri Pollard MD Work Phone: -Ultrasound [facility] Start: 12-29-2024 End: 12-29-[address] Carito Gordon MD -Ultrasound [facility] Work Phone: Start: 12-29-2024 End: 12-29-2024 ambulatory Carito Gordon Facility:[facility] Start: 12-26-2024 End: 12-26-[address] Carito Gordon MD -[facility] Work Phone: Start: 12-26-2024 End: 12-26-[address] Keri Pollard MD Work Phone: -[facility] Start: 12-05-2024 End: 12-05-[address] Keri Pollard MD Work Phone: -Outpatient Breast Imaging Start: 12-05-2024 End: 12-05-[address] Keri Pollard MD -[facility]patient [facility] Work Phone: Start: 12-05-2024 End: 12-05-2024 ambulatory Keri Pollard Facility:[facility] Start: 11-15-2024 End: 11-15-[address] Keri Pollard MD Work Phone: -Laboratory [place] Start: 11-15-2024 End: 11-15-[address] Keri Pollard MD -[facility] [place] Work Phone: Start: 11-15-2024 End: 11-15-2024 ambulatory Keri Pollard Facility:[facility] Start: 11-03-2024 End: 11-03-[address] Keri Pollard MD Work Phone: -Laboratory [facility] Start: 11-03-2024 End: 11-03-[address] Theresa Carvajal MD -Laboratory [facility] Start: 11-03-2024 End: 11-03-2024 ambulatory Keri Pollard Facility:[facility] Start: 02-16-2024 End: 02-16-2024 ambulatory Keri Pollard Facility:[facility] Start: 02-04-2024 End: 02-04-2024 [facility] Start: 05-25-2023 End: 05-25-2023 ambulatory [facility] Work Phone: Start: 05-25-2023 End: 05-25-2023 Patient encounter procedure [facility] Start: 04-05-2023 End: 04-05-2023 ambulatory KERI POLLARD Facility:[facility] Start: 03-26-2023 End: 03-26-2023 ambulatory REYMUNDO ESCAMILLA Facility:[facility] Start: 03-26-2023 End: 03-26-2023 Patient encounter procedure Reymundo Escamilla MD Work Phone: General Surgery Comment on above: Multinodular goiter (Primary Dx) Start: 03-24-2023 End: 03-24-2023 ambulatory [facility] Work Phone: Start: 03-24-2023 End: 03-24-2023 Patient encounter procedure [facility] Start: 03-17-2023 End: 03-17-2023 ambulatory REYMUNDO ESCAMILLA Facility:[facility] Start: 03-17-2023 End: 03-17-2023 Patient encounter procedure Reymundo Escamilla MD Work Phone: General Surgery Comment on above: Multinodular goiter (Primary Dx) Start: 03-10-2023 End: 03-10-2023 Patient encounter procedure [facility]-Ultrasound, [facility] Work Phone: Start: 03-03-2023 End: 03-03-2023 ambulatory [facility] Work Phone: Start: 03-03-2023 End: 03-03-2023 [facility] Start: 12-30-2022 End: 12-30-2022 ambulatory [facility] Work Phone: Start: 12-30-2022 End: 12-30-2022 [facility] Start: 11-03-2022 End: 11-03-2022 ambulatory [facility] Work Phone: Start: 11-03-2022 End: 11-03-2022 Patient encounter procedure [facility]-Laboratory, Specimen Start: 10-29-2022 End: 10-29-2022 ambulatory [facility] Work Phone: Start: 10-29-2022 End: 10-29-2022 [facility] Start: 10-13-2022 End: 10-13-2022 ambulatory [facility] Work Phone: Start: 10-13-2022 End: 10-13-2022 [facility] Start: 09-02-2022 End: 09-02-2022 Patient encounter procedure [facility]-MRI - [facility] Start: 08-20-2022 End: 08-20-2022 ambulatory [facility] Work Phone: Start: 08-20-2022 End: 08-20-2022 [facility] Start: 07-14-2022 End: 07-14-2022 ambulatory [facility] Work Phone: Start: 07-14-2022 End: 07-14-2022 Patient encounter [facility] Start: 06-17-2022 End: 06-17-2022 [facility] Start: 05-21-2022 End: 05-21-2022 ambulatory [facility] Work Phone: Start: 05-21-2022 End: 05-21-2022 Patient encounter procedure [facility] [facility] Start: 04-23-2022 End: 05-16-2022 ambulatory [facility] Work Phone: Start: 04-23-2022 End: 05-16-2022 Discharged Recurring [facility] Start: 04-23-2022 Registered Rec[facility]ring [facility] Start: 04-21-2022 End: 04-21-2022 ambulatory [facility] Work Phone: Start: 04-21-2022 End: 04-21-2022 [facility] Start: 04-20-2022 End: 04-20-2022 ambulatory [facility] Work Phone: Start: 04-20-2022 End: 04-20-2022 Patient encounter [facility] Start: 04-02-2022 End: 04-02-2022 ambulatory [facility] Work Phone: Start: 04-02-2022 End: 04-02-2022 Patient encounter procedure [facility]-Ultrasound, [facility] Start: 03-19-2022 End: 03-19-2022 ambulatory [facility] Work Phone: Start: 03-19-2022 End: 03-19-2022 Patient encounter [facility] Start: 01-21-2022 End: 01-21-2022 ambulatory [facility] Work Phone: Start: 01-21-2022 End: 01-21-2022 Patient encounter [facility] Start: 12-15-2021 End: 12-15-2021 Patient encounter procedure [facility] Start: 12-01-2021 End: 12-01-2021 [facility] Start: 09-22-2021 End: 09-22-2021 [facility] Start: 09-11-2021 End: 09-11-2021 Patient encounter procedure [facility] Start: 07-09-2021 End: 07-09-2021 Patient encounter procedure [facility] Start: 06-13-2021 End: 06-13-2021 Patient encounter procedure [facility] Procedures Date Procedure Procedure Detail Performing Clinician Start: 12-29-2024 US scan of thyroid Dr. Keri Pollard MD Work Phone: Start: 12-05-2024 Screening mammography Sohail Pollard MD Work Phone: Start: 11-15-2024 Vitamin D, 25-hydrox y measurement Dr. Keri Pollard MD Work Phone: Comment on above: Vitamin D StatusDefi ciency: <20 ng/mL (50nmol/L)Insufficiency: 20-30 ng/mL (50-75 nmol/L)Sufficiency: 30-100 ng/mL (75-250 nmol/L)Toxicity: >100 ng/mL (>250 nmol/L) Start: 03-26-2023 US THYROID BIOPSY RI GHT (POC) SURG USE ONLY Reymundo Escamilla MD Work Phone: Start: 03-10-2023 Radiography of esophagus Start: 03-10-2023 US scan of thyroid Start: 09-02-2022 MRI of brain with contrast Start: 05-21-2022 CT of abdomen with contrast Start: 04-02-2022 Ultrasonography of abdomen Respiratory Panel (PCR) Plan of Treatment Date Care Activity Detail Author Start: 10-18-2031 Urine microalbumin profile DTaP,Tdap,Td Vaccine (3 - Td or Tdap) [facility] Start: 10-29-2022 Procedure [facility] Start: 05-17-2022 Depression Assessment Depression Assessment [facility] Start: 2021 Cologuard (FIT-DNA) Cologuard (FIT-DNA) [facility] Start: 2021 Colonoscopy Colonoscopy [facility] Start: 2021 Colorectal Cancer Screening Colorectal Cancer Screening [facility] Start: [address] Colonography [facility] Start: 2021 Diabetes Screening Diabetes Screening [facility] Start: 2021 Fecal Occult Blood Fecal Occult Blood [facility] Start: 2021 Lipid 1996 panel - Serum or Plasma Lipid Screening [facility] Start: 2021 Sigmoidoscopy Sigmoidoscopy [facility] Start: 2016 Mammography Mammogram Screening [facility] Start: 2006 HPV Testing HPV Testing [facility] Start: 1997 Pap Testing Pap Testing [facility] Start: 1994 Hepatitis C Screening Hepatitis C Screening [facility] Start: 1994 HIV Screening HIV Screening [facility] Start: 1976 Hepatitis B Vaccine (1 of 3 - 3-dose series) Hepatitis B Vaccine (1 of 3 - 3-dose series) [facility] Path report.final Dx Spec [facility] Immunizations Immunization Date Immunization Notes Care Provider [facility] 04-26-2024 influenza, seasonal, injectable, preservative free Dr. Keri Pollard MD Work Phone: [facility] 02-19-2023 Covid (Spikevax) Dr. Keri coffman MD Work Phone: [facility] 02-19-2023 influenza, injectabl e, quadrivalent, preservative free Dr. Keri Pollard MD Work Phone: [facility] 02-15-2022 influenza, injectabl e, quadrivalent, preservative free Dr. Keri Pollard MD Work Phone: [facility] 10-17-2021 tetanus toxoid, redu antwan diphtheria toxoid, and acellular pertussis vaccine, adsorbed Dr. Keri Pollard MD Work Phone: [facility] 10-10-2021 Covid (Pfizer) Dr. Keri allan MD Work Phone: [facility] 03-10-2021 influenza, injectabl e, quadrivalent, preservative free Dr. Keri Pollard MD Work Phone: [facility] 01-06-2021 Covid (Moderna) Dr. Keri farley MD Work Phone: [facility] 07-19-2020 Covid (Moderna) Dr. Keri farley MD Work Phone: [facility] 06-21-2020 Covid (Moderna) Dr. Keri farley MD Work Phone: [facility] 02-04-2019 influenza, injectabl e, quadrivalent, preservative free Dr. Keri Pollard MD Work Phone: [facility] 05-17-2009 tetanus toxoid, redu antwan diphtheria toxoid, and acellular pertussis vaccine, adsorbed Dr. Keri Pollard MD Work Phone: [facility] Payers Date Payer Category Payer Private Health Insurance [id number] 2024 Private Health Insurance [id number] 2024 Private Health Insurance [id number] 2024 Self-pay [id number] 2022 Unknown [id number] 2022 Unknown [employer] BLUE CARD PPO OOS [id number] 2022-Present [phone] [address] [place] [address] PPO [id number] 1975 Unknown [id number] Private Health Insurance [id number] Private Health Insurance [id number] Unknown [id number] Unknown [id number] Unknown [facility] PACKAGE PLAN [id number] Unknown [id number] 62 Unknown [id number] 62 Unknown [id number] 62 Unknown [id number] 62 Unknown [id number] 62 Unknown [id number] 62 Unknown [id number] 62 Unknown [id number] 62 Social History Date Type Detail Facility Start: 12-27-2020 End: 12-27-2020 Tobacco smoking status [facility] Unknown if ever smoked [facility] Start: 1975 Sex Assigned At Female [facility] Start: 03-17-2023 End: 12-26-2024 Tobacco smoking status ILIS Ex-smoker [facility] End: 05-17-2017 History of tobacco use Current smoker [facility] End: 05-17-2017 History of tobacco use Cigarette Smoker [facility] Start: 03-17-2023 Tobacco use and exposure Smokeless tobacco non-user [facility] Start: 03-17-2023 Alcohol intake Current drinke r of alcohol (finding) [facility] Start: 03-17-2023 History of Social function [facility] Start: 03-17-2023 Tobacco use panel [facility] National Score (1-10 0), lower number is lower risk 80 [facility] Start: 03-17-2023 Alcohol Comment two times a year [facility] Start: 1975 Sex Assigned At Not on file [facility] Sexual Orientation Heterosexual (finding) [facility] Clinical Notes 11-03-2022 to 01-01-2025 Note Date & Type Note Facility 01-01-2025 Radiology Diagnostic study note [facility] Imaging Services [address] [place] [address] Thyroid MR#: [id number] Acct: [id number] Name: ANDIE MEJIA Rep #: [id number] : 1975 F 49 From: Axel Castelan MD PCP: Dr. Carito Gordon MD Status: REG CLI Study:Thyroid Date of Exam: 12/29/24 Exam# [id number] Ordering Dr: Carito Gordon MD PROCEDURE: THYROID 12/29/2024 REASON FOR EXAM: FEELS NODULES ARE GETTING BIGGER TECHNIQUE: Multiple images were obtained. COMPARISON: Prior study dated February 16, 2024. FINDINGS: Right thyroid lobe size: 5.4 cm 2.2 cm x 2.3 cm Left thyroid lobe size: 5.4 cm x 2.4 cm x 1.6 cm Isthmus: 1.2 cm Background parenchymal echotexture is heterogeneous Nodules: Once again, there is innumerable heterogeneous nodules involving both lobes of the thyroid gland. The largest in the right lobe measures 1.8 cm 1.9 cm 1.4 cm. This is in the lower pole. It is complex in nature. Increased vascularity. This is a TI-RADS category 4. In the left lobe, the largest heterogeneous complex nodules in the midpole measuring 1.9 cm 1.9 cm 1 cm. This is a TI-RADS 4. US/Thyroid IMPRESSION: Stable examination with multiple nodules as described. There are complex nodules in both lobes. The largest have been measured. If nobiopsy performed, biopsy recommended. RECOMMENDATION: Based on most suspicious nodule. Nodule size = largest diameter Only evaluate nodule if =>5 mm. Growth > 20% in 2 dimensions = worsening. Follow up to 4 nodules. Recommend biopsy for no more than 2 nodules. Reading Location: [id number] CC: Dr. Carito Gordon MD ~ [employer] Crew Chief: Signed [facility] 12-26-2024 Evaluation note Diagnosis Onset Date Resolution Anxiety acute December 26 8:34am Multinodular goiter acute Aug[facility] 2024 8:34am Lupus chronic December 26 8:34am History of migraine noneactive Aug[facility] 2024 8:34am PTSD (post-traumatic stress disorder) noneactive December 26 8:34am Screening for colon cancer noneactive December 26 8:34am Essential tremor noneactive December 152024 8:34am Establishing care with new doctor, encounter for noneactive December 26 8:34am Prediabetes noneactive December 26, 2024 8:34am Morbid obesity with BMI of 40.0-44.9, adult noneactive December 26, 2024 8:34am [facility] Work Phone: 1(977) 907-364711-21-2023 NoteHNO ID: [id number] Author: Reymundo Escamilla MD Service: ? Author Type: Physician [...] ?C (96.9 ?F), height 170.2 cm (5' 7), weight 127.5 kg (281 lb), SpO2 98 %. Neck is supple no hard palpable nodules are identified Assessment:Multinodular goiter (primary encounter diagnosis) Plan: Patient will need to have yearly thyroid ultrasounds that the nodules grow by more than 20% or new nodules grow that meet criteria for biopsies and repeat fine-needle aspirations will be performed.[facility]11-10-2023 NoteHNO ID: [id number] Author: Reymundo Escamilla MD Service: ? Author Type: Physician [...] applied and the patient tolerated the procedure well.[facility]11-10-2023 Instructions* Patient Instructions* Kathryn Ribeiro LPN - 03/26/2023 9:15 AM [...] you have any questions or concerns @ [phone]. Please make an appointment to follow up in one week with your physician and thank you for choosing the [facility] Lilian. documented in this encounterProm[facility]11-10-2023 Nurse Note* Kathryn Ribeiro LPN - 03/26/2023 9:07 AM EST UNIVERSAL PROTOCOL / SAFETY CHECKLIST Procedure to [...] applicable. Kathryn Ribeiro LPN documented in this encounterPromedica [facility]11-10-2023 History of Present illness Narrative* Reymundo Escamilla MD - 03/26/2023 9:00 AM EST Preoperative diagnosis: Multinodular goiter Postoperative diagnosis: The [...] tolerated the procedure well. documented in this encounterPromedica [facility]lower Hospital11-03-2023 NoteHNO ID: [id number] Author: Reymundo Escamilla MD Service: ? Author Type: Physician Type: Progress Notes Filed: 03/19/2023 1:33 PM Note Text: HISTORY AND PHYSICAL Andie Mejia 1975 REFERRING PHYSICIAN: MD Tasia Houser [address] [address] CHIEF COMPLAINT: Consult (Thyroid nodule) HPI: The patient is a 47 year old female with a complaint of a bilateral thyroid nodule. This thyroid nodule was found on Ultrasound by [facility]. The patient denies pain, denies difficulty [...] entered by the nurse and reviewed by dc Nursing Notes: Kathryn Ribeiro LPN 03/17/2023 9:13 [...] denies kidney s (more content not included)... [facility]11-03-2023 History of Present illness Narrative* Reymundo Escamilla MD - 03/19/2023 1:27 PM EDT HISTORY AND PHYSICAL Andie Mejia 1975 REFERRING PHYSICIAN: Keri Pollard MD [address] [facility] [address] [facility] [address] CHIEF COMPLAINT: Consult (Thyroid nodule) HPI: The patient is a 47 year old female with a complaint of a bilateral thyroid nodule. This thyroid nodule was found on Ultrasound by [facility]. The patient denies pain, denies difficulty [...] bilaterally but this was the only 1 thatwas recommended for a fine- needle aspiration The patient has thyroid function testing. [...] by mouth three times a day at 6am, 12 pm, and 9 pm. topiramate (TOPAMAX) [...] loss, denies weight gain, denies feeling hot, anddenies feelings of cold. Eyes: The patient denies [...] nourished, well hydrated in no acute distress. Thepatient is oriented to time, place, and person. VITALS: Blood pressure 126/78, pulse 82, temperature 36.5 C (97.7 F), height 170.2 cm (5' 7), weight 127.5 kg (281 lb), SpO2 97 %. Body mass index is 44.01 kg/m . HEENT: Normal cephalic, ataumatic, pupils are equally round, sclera are anicteric, mucous membranesare moist, oropharynx is clear. Neck has no masses, asymmetry or lymphadenopathy. Thyroid exam hardpalpable nodules identified. Respiratory: Clear to auscultation and [...] follow-up with me 1 week post operatively. Reymundo Escamilla III, MD documented in this encounterPromedica Flower Hospital11-01-2023 Nurse Note* QuintinKathrynLOAN - 03/17/2023 9:06 AM EDT REVIEW OF SYSTEMS: General: The patient NOTES fatigue, denies weight loss, denies weight gain, denies feeling hot, anddenies feelings of cold. Eyes: The patient denies [...] PRIOR Kathryn Ribeiro LPN documented in this encounterPromedica Flower Hospital06-20-2023 NotePap Smear Specimen AdequacyJun2022 4:20pmComment.Satisfactory for evaluation. Endocervical and/or squamous metaplasticcells (endocervical component)are present.[facility] INTER[facility]ACED A#[id number] Health [facility] HospitalCom[facility] on above:Satisfactory for evaluation. Endocervical and/or squamous metaplasticcells (endocervical component)are present.11-03-2022 NotePap Smear QC ReviewJune 2022 4:20pm Comment.Kami Newsome, Supervisory Events Traffic Controller (ASCP)[facility] INTER[facility]ACED A#[id number] Hospital on above:Kami Newsome, Supervisory Events Traffic Controller (ASCP)11-03-2022 NotePap Smear Specimen Adequacy November 03, 2022 4:20pmComment.Satisfactory for evaluation. Endocervical and/or squamous metaplasticcells (endocervical component)are present.[facility] INTER[facility]ACED A#[id number] Health [facility] HospitalCombr[facility] on above:Satisfactory for evaluation. Endocervical and/or squamous metaplasticcells (endocervical component)are present.11-03-2022 NotePap Smear QC ReviewJun2022 4:20pm Comment.Kami Newsome, Supervisory Events Traffic Controller (ASCP)[facility] INTER[facility] A#[id number] Hospital on above:Kami Newsome, Supervisory Events Traffic Controller (ASCP)Evaluation noteNo assessment information availableWCleveland Clinic [facility] Work Phone: Evaluation note* Diagnosis Multinodular goiter- Primary Nontoxic multinodular goiter documented in this encounter [facility]* Diagnosis Multinodular goiter- Primary Nontoxic multinodular goiter documented in this encounter [facility]* Diagnosis Onset Date Resolution Status Admit Date Lupus chronic December 26 8:34am Establishing care with new doctor, encounter for noneactive December 8:34am Bipolar disorder noneactive December 152024 8:34am [facility] Work Phone: Reason for referral (narrative)No reason for referral information availableWCleveland Clinic Hillcre[facility] Hospital Work Phone: Advance Directives No Advanced Directives Records Found Advance Directive Response Recorded Date/ Time Living Will No December 27 1:12pm Power of [employer] No December 27 1:12pm Advance Directive Response Recorded Date/ Time Living Will No December 27 12:12pm Power of [employer] [place] [place] No December 27 12:12pm Chief Complaint and Reason for Visit Chief Complaint ELEVATED LIVER ENZYM ES Chief Complaint ELEVATED LIVER ENZYM ES MORBID OBESITY Chief Complaint ELEVATED LIVER ENZYM ES MORBID OBESITY HEPATOMEGALY Chief Complaint HEPATOMEGALY Chief Complaint BRAIN TUMOR Chief Complaint GLOBUS SENSATION Chief Complaint Admit Date EORDERS November 15, 2024 9:31a m Chief Complaint Admit Date EORDERS November 15, 2024 9:31a m screening December 05, 2024 3:13 pm Chief Complaint Admit Date EORDERS November 15, 2024 9:31a m screening December 05, 2024 3:13 pm New patient establish ppwk sent December 152024 8:34am Reason for Visit Admit Date Lupus December 26, 2024 8: 34am Establishing care with new doctor, caroline nter for December 26, 2024 8:34am Bipolar disorder December 26, 2024 8: 34am Chief Complaint Admit Date EORDERS November 15, 2024 9:31a m screening December 05, 2024 3:13 pm New patient establish ppwk sent December 152024 8:34am GOITER December 29, 2024 12 :17pm Reason for Visit Admit Date Anxiety December 26, 2024 8: 34am Multinodular goiter December 26, 2024 8: 34am Lupus December 26, 2024 8: 34am History of migraine December 26, 2024 8: 34am PTSD (post-traumatic stress disorder) Au catrina 2024 8:34am Screening for colon cancer December 26, 2024 8:34am Essential tremor December 26, 2024 8: 34am Establishing care with new doctor, caroline rubalcava for December 26, 2024 8:34am Prediabetes December 26, 2024 8: 34am Morbid obesity with BMI of 40.0-44.9, ad ult December 26, 2024 8:34am Summary Purpose Family History No Family History Records Found Relationship Condition Age at Onset Recorded Date/T adi father Alcoholism Unknown Malignant neoplasm of lung Unknown Diabetes mellitus Unknown Mental disorder Unknown Attempted suicide Unknown mother Anemia Unknown Anxiety Unknown Asthma Unknown Arthritis Unknown Venous thrombosis Unknown Osteoporosis Unknown Disorder of respiratory system Unknown Disorder of thyroid Unknown brother Alcoholism Unknown daughter Anemia Unknown Addiction Unknown aunt Malignant neoplasm Unknown uncle Malignant neoplasm Unknown son Addiction Unknown Additional Source Comments Goals (unrecognized section and content) Goals may be documented in a n alternate sectionGoals may be documented in an alternate sectionGoals may be documented in an alternate sectionGoals may be documented in an alternate sectionGoals may be documented in an alternate sectionGoals may be documented in an alternate sectionGoals may be documented in an alternate sectionGoals may be documented in an alternate sectionGoals may be documented in an alternate sectionGoals may be documented in an alternate sectionGoals may be documented in an alternate sectionGoals may be documented in an alternate sectionGoals may be documented in an alternate sectionGoals may be documented in an alternate sectionGoals may be documented in an alternate sectionGoals may be documented in an alternate sectionGoals may be documented in an alternate sectionGoals may be documented in an alternate sectionGoals may be documented in an alternate sectionGoals may be documented in an alternate sectionGoals may be documented in an alternate sectionGoals may be documented in an alternate sectionGoals may be documented in an alternate sectionGoals may be documented in an alternate section Care Teams (unrecognized sec tion and content) Team Status: Active Member Role Status Dates Dr. Keri Pollard MD Family Provider Active Dr. Keri Pollard MD Primary Care Provider Active Team Status: Inactive Member Role Status Dates Dr. Keri Pollard MD Primary Care Provider, Referr ing Provider Active Dr. Theresa Carvajal MD Attending Provider Active Team Status: Inactive Member Role Status Dates Dr. Keri Pollard MD Primary Care Provider Active Dr. Theresa Carvajal MD Attending Provider, Referring Provider Active Team Status: Inactive Member Role Status Dates Dr. Keri Pollard MD Primary Care Provider Active Dr. Theresa Carvajal MD Attending Provider Active Team Status: Inactive Member Role Status Dates Dr. Keri Pollard MD Primary Care Pr ovider, Attending Provider, Referring Provider Active Team Status: Active Member Role Status Dates Dr. Keri Pollard MD Primary Care Provider Active Dr. Theresa Carvajal MD Attending Provider Active Team Status: Active Member Role Status Dates Dr. Keri Pollard MD Primary Care Provider Active Dr. Hedy Miles MD Attending Provider Active Team Status: Inactive Member Role Status Dates Dr. Keri Pollard MD Primary Care Provider Active Dr. Hedy Miles MD Attending Provider Active Team Status: Inactive Member Role Status Dates Dr. Keri Pollard MD Primary Care Provider, Attend ing Provider Active Sample Taker Operator Relationship Specialty Start Date End Date Christianne Rosario [address] [facility] [address] [place] [address] PCP - General 03/16/23 Sample Taker Operator Relationship Specialty Start Date End Date Keri Pollard MD [address] [facility] [address] [place] [address] PCP - General Family Medicine 03/26/23 Team Status: Active Member Role/Relationship Status Dates Dr. Keri Polalrd MD Family Provider Active Dr. Keri Pollard MD Primary Care Provider Active Team Status: Inactive Member Role/Relationship Status Dates Dr. Keri Pollard MD Primary Care Provider Active Start: November 03, 2024 End: November 03, 2024 Dr. Theresa Carvajal MD Attending Provider Active Start: November 03, 2024 End: November 03, 2024 Team Status: Inactive Member Role/Relationship Status Dates Dr. Keri Pollard MD Primary Care Provider Active Start: November 15, 2024 End: November 15, 2024 Dr. Keri Pollard MD Attending Provider Active Start: November 15, 2024 End: November 15, 2024 Dr. Keri Pollard MD Referring Provider Active Start: November 15, 2024 End: November 15, 2024 Team Status: Active Member Role/Relationship Status Dates Dr. Keri Pollard MD Primary Care Provider Active Team Status: Inactive Member Role/Relationship Status Dates Dr. Keri Pollard MD Primary Care Provider Active Start: December 05, 2024 End: December 05, 2024 Dr. Keri Pollard MD Attending Provider Active Start: December 05, 2024 End: December 05, 2024 Dr. Keri Pollard MD Referring Provider Active Start: December 05, 2024 End: December 05, 2024 Team Status: Inactive Member Role/Relationship Status Dates Dr. Keri Pollard MD Primary Care Provider Active Start: December 26, 2024 End: December 26, 2024 Dr. Keri Pollard MD Referring Provider Active Start: December 26, 2024 End: December 26, 2024 Dr. Carito Gordon MD Attending Provider Active Start: December 26, 2024 End: December 26, 2024 Team Status: Active Member Role/Relationship Status Dates Dr. Carito Gordon MD Primary Care Provider Active Team Status: Inactive Member Role/Relationship Status Dates Dr. Carito Gordon MD Primary Care Provider Active Start: December 29, 2024 End: December 29, 2024 Dr. Carito Gordon MD Attending Provider Active Start: December 29, 2024 End: December 29, 2024 Dr. Carito Gordon MD Referring Provider Active Start: December 29, 2024 End: December 29, 2024 Source Comments (unrecognize d section and content) In the event this informatio n is protected by the Federal Confidentiality of Alcohol and Drug Abuse Patient Records regulations: The Federal rules restrict any use of the information to criminally investigate or prosecute any alcohol or drug abuse patient.[facility] the event this information is protected by the Federal Confidentiality of Alcohol and Drug Abuse Patient Records regulations: The Federal rules restrict any use of the information to criminally investigate or prosecute any alcohol or drug abuse patient.[facility] Reason for Visit (unrecogniz ed section and content) Reason Comments Consult Thyroid nodule Reason Comments Procedure FNA OF RIGHT THYROID INFORMATION SOURCE (unrecogn ized section and content) DATE CREATED AUTHOR 04/14/2023 [facility] DATE CREATED AUTHOR AUTHOR'S ORGANIZ ATION 01/05/2025 [facility] DATE CREATED AUTHOR AUTHOR'S ORGANIZ ATION 01/06/2025 [facility] FOR RECORDS PERTAINING TO PATIENTS WHO ARE [...] BE BASED ON THE PRIMARY CLINICAL RECORDS. [employer] [facility]. provides no warranty or guarantee of the accuracy or completeness of information in this document.
== END | disposition home or self-care (01) ==
PROVIDERS: PCP Internal Medicine; Referring Provider Obstetrics & Gynecology; Visit Provider Obstetrics & Gynecology
DX: N92.0 Excessive and frequent menstruation with regular cycle (principal)
CPT/HCPCS: 76830

== ENCOUNTER → 2025-01-26 | Outpatient (CLI) | payer OTHER, SELFPAY ==
[2025-01-26 15:25] LABS: Hematocrit 42.9 % (37-47); Hemoglobin 13.7 g/dL (12.0-15.0); Immature Granulocytes Count 0.030 X10^3/uL (0.0-0.0); Mean Corp Hgb Conc 31.9 g/dL (32-36); Mean Corpuscular Volume 84.4 fL (81-99); Mean Platelet Vol. 10.1 fl (6.2-12.0); NRBC Flagged by Analyzer 0 % (0-5); Platelet Count 348 K/mm3 (150-450); RBC Distribution Width CV 13.2 % (11.6-14.6); RBC Distribution Width SD 40.8 fl (35.1-43.9); Red Blood Count 5.08 M/mm3 (4.2-5.4); White Blood Count 8.7 K/mm3 (4.4-11.0)
[2025-01-26 16:17] LABS: AST(SGOT) 20 U/L (<=31); Alanine Aminotransfer ALT/SGPT 25 U/L (<=34); Albumin, Serum 4.0 g/dL (3.5-5.0); Alkaline Phosphatase 61 U/L (35-104); Anion Gap 11 (5-15); BUN 16 mg/dL (4-19); BUN/Creat Ratio 17.5 RATIO (10-20); Calcium,Total 9.0 mg/dL (7.6-11.0); Carbon Dioxide 24.7 mmol/L (21.0-32.0); Chloride 103 mmol/L (98-108); Globulin 2.7 g/dL (2.2-4.2); Glucose 94 mg/dL (70-99); Potassium 4.4 mmol/L (3.3-5.1)
== END | disposition home or self-care (01) ==
LOC: MTLAB 13:07
PROVIDERS: PCP Internal Medicine; Referring Provider Internal Medicine Rheumatology; Visit Provider Internal Medicine Rheumatology
DX: M06.4 Inflammatory polyarthropathy (principal); M79.7 Fibromyalgia; M25.511 Pain in right shoulder; Z79.899 Other long term (current) drug therapy
CPT/HCPCS: 36415; 80053; 85025